=== PATIENT | female | born 1940 | race Two or more races ===

== ENCOUNTER 2018-10-05 14:47 | Inpatient (IN) | payer MEDICAID, MEDICARE ==
[~2018-10-05] VITALS: Ht 157.5 cm; Wt 86.2 kg
[~2018-10-05 14:47] MED LIST: AMLO5TAB7 PO; ATEN50TA PO; CLOP75TA15 PO; FURO40TA5 PO; GLIM2TAB2 PO; ICOS1CAP PO; NATE120T6 PO; OXYB10TA PO; RIVA1PAT3 TP; ROSU10TA PO
--- NOTE | 2018-10-05 15:00 | NUR ---
PT BIB FAMILY C/O DIALYSIS PORT MALFUNCTION LAST DIALYSIS WAS 09/27/18. ON ROOM AIR, 02 SAT 97%, BREATHING EVENLY AND UNLABORED. KEPT COMFORTABLE, WILL CONTINUE TO MONITOR ACCORDINGLY.
--- NOTE | 2018-10-05 16:00 | NUR ---
RECEIVED A VERBAL ORDER FROM DR. KAUR REGARDING MIDLINE INSERTION AND ORDERED. FAMILY AT BEDSIDE AND AMENABLE. ORDER CARRIED OUT AND NOTED.
[2018-10-05 16:14] LABS: BASOPHILS % (AUTO) 0.7 % (0.0-2.0); EOSINOPHILS % (AUTO) 3.5 % (0.0-6.0); HEMATOCRIT 32 % (33-45); HEMOGLOBIN 10.2 g/dL (11.5-14.8); LYMPHOCYTES # (AUTO) 1.5 /CMM (0.8-4.8); LYMPHOCYTES % (AUTO) 22.6 % (20.0-44.0); MEAN CORPUSCULAR HGB CONC 32 g/dl (31.0-36.0); MEAN CORPUSCULAR VOLUME 92 fL (82-100); MONOCYTES # (AUTO) 0.6 /CMM (0.1-1.30); MONOCYTES % (AUTO) 9.2 % (2.0-12.0); NEUTROPHILS # (AUTO) 4.2 /CMM (1.8-8.9); PLATELET COUNT (AUTO) 364 /CMM (150-450); RED BLOOD CELL COUNT(AUTO) 3.51 MIL/uL (4.0-5.2); WHITE BLOOD COUNT (AUTO) 6.5 K/uL (4.3-11.0)
[2018-10-05 16:25] LABS: CALCIUM, SERUM 9.7 mg/dL (8.5-10.1); CARBON DIOXIDE 25 mmol/L (21-32); CHLORIDE 104 mmol/L (98-107); CREATININE 3.4 mg/dL (0.6-1.3); GLUCOSE 127 mg/dL (74-106); POTASSIUM 4.4 mmol/L (3.5-5.1); SODIUM SERUM 138 mmol/L (136-145); UREA NITROGEN, BLOOD 44 mg/dL (7-18)
[2018-10-05 16:31] LABS: ALANINE AMINOTRANSFERASE 14 U/L (12-78); ALBUMIN 2.9 g/dL (3.4-5.0); ALKALINE PHOSPHATASE 72 U/L (46-116); ASPARTATE AMINOTRANSFERASE 10 U/L (15-37); BILIRUBIN,DIRECT 0.1 mg/dL (0.0-0.2); BILIRUBIN,TOTAL 0.2 mg/dL (0.2-1.0); LIPASE 254 U/L (73-393); TOTAL PROTEIN, SERUM 6.7 g/dL (6.4-8.2)
--- NOTE | 2018-10-05 16:33 | NUR ---
CALLED THE OFFICE OF DR MURILLO AND A PAGE WAS SENT OUT TO HIM
--- NOTE | 2018-10-05 18:19 | NUR ---
PT IS ASSIGNED TO MED SURG RM#: 309-2, DX: DIALYSIS ACCESS MALFUNCTION, AND ACCEPTING: CHARIS HORTON NP.
--- NOTE | 2018-10-05 18:27 | NUR ---
CALLED REPORT TO Rebeka CORRAL AND SPOKE TO VINEET BALES AND REPORT GIVEN AND FOR KASSY.
--- NOTE | 2018-10-05 19:20 | NUR ---
endorsed to Jessica BALES for barrera.
--- NOTE | 2018-10-05 19:20 | NUR ---
Patient was endorsed by NII Wade, for HD port malfunction. Pt awaiting room transfer for admission. TENA Harding, will admit her, at BS at this time.
--- NOTE | 2018-10-05 19:30 | NUR ---
Pt transported to 309 via gurney accompanied by son.
--- NOTE | 2018-10-05 19:40 | NUR ---
SOLAR PHOTOVOLTAIC CREW LEAD ADMITTING NOTES RECEIVED PATIENT FROM ER VIA PALMA, ACCOMPANIED BY STAFF & SON CARLA TO ROOM 309-2. PATIENT IS A & O X 3 PERUVIAN SPEAKING WITH MINIMAL CHINESE SPEAKING. NO C/O PAIN, NO SOB VERBALIZED. NO ACUTE DISTRESS NOTED. ON BED REST. IN SEMI ROJAS POSITION. NOTED WITH RIGOBERTO MIDLINE, DRESSING INTACT, FLUSHING WELL. ON TELE MONITORING WITH A FIB 62. RCW HD CATH IN PLACE. BODY CHECK DONE, PHOTOS TAKEN, PLACED IN THE CHART. VS CHECKED & STABLE AT THIS TIME. ALL BELONGINGS ACCOUNTED FOR & DOCUMENTED BY STUDENT LIFE COORDINATOR. ALL ORDERS VERIFIED WITH MD, NOTED & CARRIED OUT. PT HAD SNACK AFTER ARRIVING TO THE UNIT, TOLERATED WELL. ALL NEEDS MET. BED IN LOW LOCKED POSITION. CALL LIGHT WITHIN REACH. WILL CONTINUE TO MONITOR CLOSELY.
[2018-10-05 20:00] VITALS: BP 149/84
[2018-10-05] MEDS ORDERED: ONDANSETRON HCL/PF 4 MG/2 ML VIAL IVP PRN (20:00)
[2018-10-05] MEDS ORDERED: TEMAZEPAM 15 MG CAPSULE PO PRN (20:00)
[2018-10-05] MEDS ORDERED: HOME MED MISCELLANEOUS XX SCH (20:00)
[2018-10-05] MEDS ORDERED: DEXTROSE 50%-WATER 50 ML DISP.SYRIN IV PRN (20:00)
[2018-10-05] MEDS ORDERED: INSULIN REGULAR, HUMAN 100 UNIT/ML 3 ML VIAL SQ PRN (20:00)
[2018-10-05] MEDS ORDERED: MAG HYDROX/AL HYDROX/SIMETH 30 ML UDC PO PRN (20:00)
[2018-10-05] MEDS ORDERED: MAGNESIUM HYDROXIDE 30 ML UDC PO PRN (20:00)
[2018-10-05] MEDS ORDERED: ACETAMINOPHEN 325 MG TABLET PO PRN (20:00)
--- NOTE | 2018-10-05 21:00 | NUR ---
CLOTH WIRE WEAVER NOTE PATIENT'S O2 SAT NOTED TO BE 94% WITH MILD SOB, PLACED ON O2 VIA NC @ 2LPM & WAS EFFECTIVE. WILL CONTINUE TO MONITOR CLOSELY.
[2018-10-05] MEDS: BLOOD SUGAR DIAGNOSTIC 1 EACH STRIP IN SCH (21:09)
[2018-10-05] MEDS: SIMVASTATIN 10 MG TABLET PO SCH (21:42)
--- NOTE | 2018-10-05 22:31 | NUR ---
QUINTON AGUIRRE PHONE NUMBER IS [phone].
[2018-10-06] VITALS (7 sets, daily range): BP systolic 91–180; BP diastolic 64–83
--- NOTE | 2018-10-06 00:06 | NUR ---
AIRPLANE RENTAL CLERK NOTE PATIENT'S BLOOD SUGAR NOTED TO BE 85MG/DL, GAVE ORANGE JUICE, RECHECKED BS AGAIN, NOTED TO BE 109MG/DL. WILL MONITOR CLOSELY.
[2018-10-06] MEDS ORDERED: hydrALAZINE HCL 25 MG TABLET PO PRN (03:00)
--- NOTE | 2018-10-06 03:34 | NUR ---
PRN HYDRALAZINE GIVEN PATIENT'S BP NOTED TO BE 174/95, 65/MIN, CHECKED MULTIPLE TIMES, BP REMAINED HIGH, DR GLOVER NOTIFIED WITH NEW ORDER. PRN HYDRALAZINE GIVEN. WILL REASSESS FOR EFFECTIVENESS OF THE MEDICINE.
--- NOTE | 2018-10-06 06:28 | NUR ---
DR. EMERY CALLED DR EMERY CALLED, STATED TO KEEP THE PT NPO FROM NOW & OBTAIN CONSENT FOR PERMA CATH PLACEMENT PROCEDURE. WILL ENDORSE TO AM RN TO CALL QUINTON AGUIRRE TO GET THE CONSENT. PT KEPT NPO FROM NOW ON UNTIL THE PROCEDURE IS DONE.
[2018-10-06] MEDS: BLOOD SUGAR DIAGNOSTIC 1 EACH STRIP IN SCH ×4 (06:38→21:28)
[2018-10-06 06:54] LABS: BASOPHILS % (AUTO) 0.4 % (0.0-2.0); HEMATOCRIT 32 % (33-45); HEMOGLOBIN 10.3 g/dL (11.5-14.8); LYMPHOCYTES # (AUTO) 1.6 /CMM (0.8-4.8); MEAN CORPUSCULAR HGB CONC 32 g/dl (31.0-36.0); MEAN CORPUSCULAR VOLUME 93 fL (82-100); MONOCYTES # (AUTO) 0.5 /CMM (0.1-1.30); NEUTROPHILS % (AUTO) 67.6 % (43.0-81.0); PLATELET COUNT (AUTO) 396 /CMM (150-450); RED BLOOD CELL COUNT(AUTO) 3.48 MIL/uL (4.0-5.2); WHITE BLOOD COUNT (AUTO) 7.3 K/uL (4.3-11.0)
--- NOTE | 2018-10-06 07:00 | NUR ---
DEVELOPMENTAL WRITING INSTRUCTOR CLOSING NOTES PATIENT SLEPT INTERMITTENTLY AT NIGHT. PATIENT IS A & O X 3 WALLISIAN SPEAKING WITH MINIMAL UPPER SORBIAN SPEAKING. NO C/O PAIN, NO SOB VERBALIZED. NO ACUTE DISTRESS NOTED. GETS OUT OF BED TO CHAIR WITH STND BY ASSIST. RIGOBERTO MIDLINE, DRESSING INTACT, FLUSHING WELL. ON TELE MONITORING WITH A FIB 64. RCW HD CATH IN PLACE. BODY CHECK DONE, PHOTOS TAKEN, PLACED IN THE CHART. ON O2 @ 2LPM VIA NC. NPO PER DR VITALE'S ORDER. ALL NEEDS MET. BED IN LOW LOCKED POSITION. CALL LIGHT WITHIN REACH. WILL ENDORSE TO AM RN FOR CONTINUITY OF CARE.
[2018-10-06 07:03] LABS: CHOLESTEROL 193 mg/dL (<200); HDL CHOLESTEROL 45 mg/dL (40-60); LDL 128 mg/dL (0-99); TRIGLYCERIDES 146 mg/dL (30-150)
[2018-10-06 07:04] LABS: CALCIUM, SERUM 9.9 mg/dL (8.5-10.1); CARBON DIOXIDE 24 mmol/L (21-32); CHLORIDE 107 mmol/L (98-107); CREATININE 3.4 mg/dL (0.6-1.3); GLUCOSE 80 mg/dL (74-106); MAGNESIUM 1.9 mg/dL (1.8-2.4); PHOSPHORUS 5.3 mg/dL (2.5-4.9); POTASSIUM 4.7 mmol/L (3.5-5.1); SODIUM SERUM 141 mmol/L (136-145); UREA NITROGEN, BLOOD 42 mg/dL (7-18)
--- NOTE | 2018-10-06 07:30 | NUR ---
NPO THIS AM FOR PERMACATH PLACEMENT SURGERY.HAD MANAGER SKILLED.FOR PT.INSTRUCTED TO CALL RN BEFORE GETTING OOB.
[2018-10-06] MEDS: FUROSEMIDE 40 MG TABLET PO SCH (09:00)
[2018-10-06] MEDS: ATENOLOL 50 MG TABLET PO SCH (09:00)
--- NOTE | 2018-10-06 10:15 | NUR ---
BGL CHECKED AND 62.ADM. 50% GLUCOSE IV.PT. SERA. WELL.
--- NOTE | 2018-10-06 11:30 | NUR ---
SON CALLED AND CAME IN TO SIGN PROCEDURAL CONSENT.MADE AWRE OF MOM'S LOW GLUCOSE.
--- NOTE | 2018-10-06 11:50 | NUR ---
TO OR VIA BED.STATUS REPORT TO RN IN ER.
[2018-10-06] MEDS: AMLODIPINE BESYLATE 5 MG TABLET PO SCH (12:12)
[2018-10-06] MEDS: RIVASTIGMINE TARTRATE 4.6 MG PATCH.TD24 TD SCH (12:20)
[2018-10-06] MEDS ORDERED: LIDOCAINE HCL/PF 1% 30 ML SDV ONE (13:08)
[2018-10-06] MEDS ORDERED: HEPARIN SODIUM, PORCINE 1,000 UNIT/ML VIAL ONE (13:08)
[2018-10-06] MEDS ORDERED: IOHEXOL 240MG/ML 0 ML IV ONE (13:10)
--- NOTE | 2018-10-06 14:00 | NUR ---
BACK IN RM. PERMACATH IN PLACE WITH NO BLEEDING.VS STABLE.SON AT BEDSIDE.PT. WITH NO COMPLAINTS OFFERED.
--- NOTE | 2018-10-06 16:00 | NUR ---
CALL TO [facility] REGARDING POSSIBLE DIALYSIS TODAY.STATES DIALYSIS TO BE AT 8 PM TONIGHT.
[2018-10-06] MEDS: PANTOPRAZOLE 40 MG TABLET.DR PO SCH (17:02)
[2018-10-06] MEDS: CLOPIDOGREL BISULFATE 75 MG TABLET PO SCH (17:02)
[2018-10-06] MEDS: OXYBUTYNIN CHLORIDE 5 MG TABLET PO SCH (17:02)
--- NOTE | 2018-10-06 18:00 | NUR ---
NO CHANGE IN STATUS.
[2018-10-06] MEDS: SIMVASTATIN 10 MG TABLET PO SCH (21:28)
[2018-10-07] VITALS: BP 153/66
[2018-10-07 04:00] VITALS: BP 138/78
[2018-10-07] MEDS: BLOOD SUGAR DIAGNOSTIC 1 EACH STRIP IN SCH ×4 (06:04→22:52)
--- NOTE | 2018-10-07 06:16 | NUR ---
HEALTH INSURANCE ADJUSTER NOTES AWAKE & RESPONSIVE. NOT IN ANY DISTRESS. NO SOB NOTED. DENIES ANY PAIN OR DISCOMFORT AT THIS TIME. ON TELE AFIB @ 60s WITH MIDLINE PATENT & INTACT. CALL LIGHT WITHIN REACH. BED IN LOWEST POSITION. SR UP X 3 WITH BED ALARM ON FOR SAFETY. WILL ENDORSE TO NEXT SHIFT.
[2018-10-07 06:28] LABS: BASOPHILS % (AUTO) 0.4 % (0.0-2.0); EOSINOPHILS % (AUTO) 1.6 % (0.0-6.0); HEMATOCRIT 31 % (33-45); LYMPHOCYTES # (AUTO) 1.3 /CMM (0.8-4.8); LYMPHOCYTES % (AUTO) 21.8 % (20.0-44.0); MEAN CORPUSCULAR HGB CONC 33 g/dl (31.0-36.0); MEAN CORPUSCULAR VOLUME 92 fL (82-100); MONOCYTES # (AUTO) 0.5 /CMM (0.1-1.30); MONOCYTES % (AUTO) 8.3 % (2.0-12.0); NEUTROPHILS # (AUTO) 4.1 /CMM (1.8-8.9); NEUTROPHILS % (AUTO) 67.9 % (43.0-81.0); PLATELET COUNT (AUTO) 330 /CMM (150-450); RED BLOOD CELL COUNT(AUTO) 3.32 MIL/uL (4.0-5.2)
[2018-10-07 06:39] LABS: CALCIUM, SERUM 9.1 mg/dL (8.5-10.1); CARBON DIOXIDE 25 mmol/L (21-32); CHLORIDE 105 mmol/L (98-107); CREATININE 2.5 mg/dL (0.6-1.3); GLUCOSE 85 mg/dL (74-106); POTASSIUM 4.1 mmol/L (3.5-5.1); SODIUM SERUM 140 mmol/L (136-145); UREA NITROGEN, BLOOD 25 mg/dL (7-18)
--- NOTE | 2018-10-07 07:00 | NUR ---
INGOT BUGGY OPERATOR OPENING NOTES PATIENT IS A & O X 3 CHINESE SPEAKING. NO C/O PAIN, NO SOB VERBALIZED. NO ACUTE DISTRESS NOTED. GETS OUT OF BED TO CHAIR WITH STANDBY ASSIST. RIGOBERTO MIDLINE, DRESSING INTACT, FLUSHING WELL. ON TELE MONITORING WITH A FIB 70. RCW HD CATH IN PLACE. ON O2 @ 2LPM VIA NC. BED IN LOW LOCKED POSITION. CALL LIGHT WITHIN REACH. WILL CONTINUE TO MONITOR
[2018-10-07 08:00] VITALS: BP 160/88
[2018-10-07] MEDS: FUROSEMIDE 40 MG TABLET PO SCH (08:37)
[2018-10-07] MEDS: OXYBUTYNIN CHLORIDE 5 MG TABLET PO SCH (08:37)
[2018-10-07] MEDS: PANTOPRAZOLE 40 MG TABLET.DR PO SCH (08:38)
[2018-10-07] MEDS: AMLODIPINE BESYLATE 5 MG TABLET PO SCH (08:38)
[2018-10-07] MEDS: CLOPIDOGREL BISULFATE 75 MG TABLET PO SCH (08:39)
[2018-10-07] MEDS: ATENOLOL 50 MG TABLET PO SCH (08:39)
[2018-10-07] MEDS: RIVASTIGMINE TARTRATE 4.6 MG PATCH.TD24 TD SCH (08:40)
[2018-10-07 16:00] VITALS: BP 147/68
--- NOTE | 2018-10-07 19:20 | NUR ---
PT IN BED. NO C/O PAIN, NO SOB VERBALIZED. NO ACUTE DISTRESS NOTED. GETS OUT OF BED TO CHAIR WITH STANDBY ASSIST. RIGOBERTO MIDLINE, DRESSING INTACT, FLUSHING WELL. ON TELE MONITORING WITH A FIB 70. RCW HD CATH IN PLACE. ON O2 @ 2LPM VIA NC. BED IN LOW LOCKED POSITION. CALL LIGHT WITHIN REACH.
[2018-10-07 20:00] VITALS: BP 155/51
[2018-10-07] MEDS ORDERED: ALBUMIN 25% 12.5 GM/50 ML BOTTLE IV ONE ×2 (20:30→20:35)
[2018-10-07] MEDS ORDERED: ALBUMIN 25% 25 GM in PREMIX 1 EA IV PRN (21:00)
[2018-10-07] MEDS: SIMVASTATIN 10 MG TABLET PO SCH (22:52)
[2018-10-07 23:00] VITALS: BP 167/84
[2018-10-08 04:00] VITALS: BP 159/70
[2018-10-08] MEDS: BLOOD SUGAR DIAGNOSTIC 1 EACH STRIP IN SCH ×2 (06:05→12:26)
--- NOTE | 2018-10-08 06:15 | NUR ---
FINANCIAL SALES ASSOCIATE NOTES AWAKE & RESPONSIVE. NOT IN ANY DISTRESS. NO SOB NOTED. DENIES ANY PAIN OR DISCOMFORT AT THIS TIME. ON TELE AFIB @ 60s WITH MIDLINE PATENT & INTACT. CALL LIGHT WITHIN REACH. BED IN LOWEST POSITION. SR UP X 3 WITH BED ALARM ON FOR SAFETY. WILL ENDORSE TO NEXT SHIFT.
--- NOTE | 2018-10-08 07:55 | NUR ---
crew chief Opening Note Patient is currently awake, resting in bed. Alert and oriented x 3, primarily Tongan speaking. On vehicle monitor technician, a-fib at 65 bpm. Patient able to make needs known, no complaints, signs or symptoms of distress, shortness of breath or pain at this time. Respirations even and unlabored, saturating on room air. Left upper arm midline, intact and patent; right chest wall HD catheter in place. Safety and Fall precautions in place: bed in lowest and locked position, side rails up x2, call light and personal possessions within reach. Patient updated on safety measures and current plan of care, verbalized understanding. Will continue to monitor and intervene as needed.
[2018-10-08 08:00] VITALS: BP 182/107
[2018-10-08] MEDS: OXYBUTYNIN CHLORIDE 5 MG TABLET PO SCH (08:24)
[2018-10-08] MEDS: PANTOPRAZOLE 40 MG TABLET.DR PO SCH (08:24)
[2018-10-08] MEDS: RIVASTIGMINE TARTRATE 4.6 MG PATCH.TD24 TD SCH (08:25)
[2018-10-08] MEDS: AMLODIPINE BESYLATE 5 MG TABLET PO SCH ×2 (09:00→09:48)
[2018-10-08] MEDS: FUROSEMIDE 40 MG TABLET PO SCH (09:00)
[2018-10-08] MEDS: ATENOLOL 50 MG TABLET PO SCH ×2 (09:00→09:48)
[2018-10-08] MEDS: CLOPIDOGREL BISULFATE 75 MG TABLET PO SCH (09:48)
[2018-10-08] MEDS ORDERED: hydrALAZINE HCL 10 MG TABLET PO PRN (10:00)
--- NOTE | 2018-10-08 10:00 | NUR ---
HD nurse at bedside. Will continue to monitor.
--- NOTE | 2018-10-08 10:09 | NUR ---
WOUND CARE CONSULT SEEN PATIENT WITH NOTABLE HEALING SCRATCHES ON ABDOMEN, BACK, LEGS , CHEST, AND SACRAL BLANCHABLE REDNESS , RECOMMENDED TO USE BEDSIDE LOTION NEEDED KEEP TO OPEN TO AIR , WILL SEE PATIENT PRN Addendum: 10/08/18 at 1013 by JOHN SY RN Amended: Links added.
[2018-10-08 12:30] VITALS: BP 120/57
--- NOTE | 2018-10-08 12:30 | NUR ---
Hemodialysis completed. 1 L of fluid removed. Vital signs stable. Will continue to monitor.
--- NOTE | 2018-10-08 14:30 | NUR ---
MS consulting practice director Note Patient discharged to [facility] in stable condition via wheelchair, accompanied by GADIEL Bird and family. Patient leaving by private car with son Melyssa. Patient ambulates with steady gait. Patient is alert and oriented x 3, primarily Algerian speaking. Patient able to make needs known, no complaints, signs or symptoms of distress, shortness of breath or pain at this time. Respirations even and unlabored, saturating on room air. Left upper arm midline removed, catheter tip intact; no signs or symptoms of infiltration or phlebitis noted at the site. Patient with right chest wall HD catheter in place. Patient refused discharge photos of skin assessment to be taken, patient and family anxious to leave. ID band removed. Personal belongings accounted for and discharged with patient, verified via belongings form and placed in chart. Patient and family provided Exitcare and discharge instructions, verbalized understanding of all education and instructions, verified by signature on discharge form; copy placed in chart.
== END 2018-10-08 14:42 | disposition home or self-care (01) | DRG 466 ==
LOC: ER 14:51 → MED 18:49 → TELE 10-06 02:31 → MED 10-08 08:15
PROVIDERS: ADMIT Nurse Practitioner Acute Care; ATTEND Nurse Practitioner Acute Care
PROC: B547ZZA Ultrasonography of Left Subclavian Vein, Guidance (ICD-10-PCS; 2018-10-05)
PROC: 05H633Z Insertion of Infusion Device into Left Subclavian Vein, Percutaneous Approach (ICD-10-PCS; 2018-10-05)
PROC: 5A1D70Z Performance of Urinary Filtration, Intermittent, Less than 6 Hours Per Day (ICD-10-PCS; principal; 2018-10-06 13:00)
PROC: 0J2SXYZ Change Other Device in Head and Neck Subcutaneous Tissue and Fascia, External Approach (ICD-10-PCS; principal; 2018-10-06 13:00)
PROC: 5A1D70Z Performance of Urinary Filtration, Intermittent, Less than 6 Hours Per Day (ICD-10-PCS; 2018-10-08)
DX: T82.41XA Breakdown (mechanical) of vascular dialysis catheter, initial encounter (principal); N18.6 End stage renal disease; I13.2 Hypertensive heart and chronic kidney disease with heart failure and with stage 5 chronic kidney disease, or end stage renal disease; J18.9 Pneumonia, unspecified organism; E44.0 Moderate protein-calorie malnutrition; J90 Pleural effusion, not elsewhere classified; N17.9 Acute kidney failure, unspecified; E11.22 Type 2 diabetes mellitus with diabetic chronic kidney disease; E11.65 Type 2 diabetes mellitus with hyperglycemia; I48.2 Chronic atrial fibrillation; D63.8 Anemia in other chronic diseases classified elsewhere; Y92.009 Unspecified place in unspecified non-institutional (private) residence as the place of occurrence of the external cause; I50.9 Heart failure, unspecified; Z86.73 Personal history of transient ischemic attack (TIA), and cerebral infarction without residual deficits; Z91.15 Patient's noncompliance with renal dialysis; Z83.3 Family history of diabetes mellitus; Z99.2 Dependence on renal dialysis; Z79.84 Long term (current) use of oral hypoglycemic drugs; Z79.899 Other long term (current) drug therapy; J98.11 Atelectasis; E78.5 Hyperlipidemia, unspecified; Z82.49 Family history of ischemic heart disease and other diseases of the circulatory system; Z68.37 Body mass index [BMI] 37.0-37.9, adult; E66.9 Obesity, unspecified; Y71.2 Prosthetic and other implants, materials and accessory cardiovascular devices associated with adverse incidents
CPT/HCPCS: 36415; 36569; 71045-TC; 80048-TC; 80061-TC; 80076-TC; 82962-TC; 83690-TC; 83735-TC; 83880; 84100-TC; 84484-TC; 85025-TC; 85730-TC; 87081-TC; 90935-TC; 97110-TC; 97116-TC; 97530-TC; A4216; A4606; A6402; C1750; G0378; J0690; J1644; J1815; J2405; J2704; J3490; P9047; Q9966; Z7610

== ENCOUNTER 2018-10-15 14:46 | Inpatient (IN) | END 2018-10-16 15:25 | disposition left against medical advice (07) | DRG 314 | DX: T82.41XA Breakdown (mechanical) of vascular dialysis catheter, initial encounter (principal); N18.6 End stage renal disease; I13.2 Hypertensive heart and chronic kidney disease with heart failure and with stage 5 chronic kidney disease, or end stage renal disease; J98.11 Atelectasis; Y92.009 Unspecified place in unspecified non-institutional (private) residence as the place of occurrence of the external cause; E11.22 Type 2 diabetes mellitus with diabetic chronic kidney disease; I50.9 Heart failure, unspecified; Y71.2 Prosthetic and other implants, materials and accessory cardiovascular devices associated with adverse incidents; Z83.3 Family history of diabetes mellitus; Z86.73 Personal history of transient ischemic attack (TIA), and cerebral infarction without residual deficits; Z82.49 Family history of ischemic heart disease and other diseases of the circulatory system; Z99.2 Dependence on renal dialysis; E78.5 Hyperlipidemia, unspecified; D64.9 Anemia, unspecified; Z79.899 Other long term (current) drug therapy; Z79.84 Long term (current) use of oral hypoglycemic drugs; Z79.01 Long term (current) use of anticoagulants; G47.33 Obstructive sleep apnea (adult) (pediatric); M85.9 Disorder of bone density and structure, unspecified; I48.2 Chronic atrial fibrillation ==

== ENCOUNTER 2019-01-11 22:16 | Inpatient (IN) | payer MEDICARE, MEDICAID ==
[~2019-01-11] VITALS: Ht 152.4 cm; Wt 81.7 kg
[~2019-01-11 22:16] MED LIST changes: -AMLO5TAB7 PO; +AMLO5TAB9 PO; -ROSU10TA PO; +ROSU10TA2 PO
--- NOTE | 2019-01-11 22:25 | NUR ---
PT BIBRA FROM HOME C/O SOB X2 DAYS. +NONPRODUCTIVE COUGH. +BODY ACHE. PER RA, POSSIBLE INFECTED PORT RIGHT HIP. BILAT LOWER LEG EDEMA NOTED. PT AOX3. KAZAKH SPEAKING. NAD NOTED. RESP EVEN AND UNLABORED. O2 SAT 99% ON RA. PT ON MONITOR IN BED 8. WILL CONTINUE TO MONITOR.
--- NOTE | 2019-01-11 22:48 | NUR ---
BLOOD DRAWN AND GIVEN TO LAB
--- NOTE | 2019-01-11 22:50 | NUR ---
RADIOLOGY AT BEDSIDE FOR XRAY
[2019-01-11 22:53] LABS: BASOPHILS # (AUTO) 0.1 /CMM (0.0-0.2); BASOPHILS % (AUTO) 1.1 % (0.0-2.0); EOSINOPHILS % (AUTO) 2.4 % (0.0-6.0); HEMATOCRIT 31 % (33-45); HEMOGLOBIN 9.9 g/dL (11.5-14.8); LYMPHOCYTES # (AUTO) 1.1 /CMM (0.8-4.8); LYMPHOCYTES % (AUTO) 17.1 % (20.0-44.0); MEAN CORPUSCULAR HGB CONC 32 g/dl (31.0-36.0); MEAN CORPUSCULAR VOLUME 87 fL (82-100); MONOCYTES # (AUTO) 0.7 /CMM (0.1-1.30); MONOCYTES % (AUTO) 10.8 % (2.0-12.0); NEUTROPHILS # (AUTO) 4.5 /CMM (1.8-8.9); NEUTROPHILS % (AUTO) 68.6 % (43.0-81.0); PLATELET COUNT (AUTO) 283 /CMM (150-450); RED BLOOD CELL COUNT(AUTO) 3.53 MIL/uL (4.0-5.2); WHITE BLOOD COUNT (AUTO) 6.6 K/uL (4.3-11.0)
[2019-01-11 23:01] LABS: CALCIUM, SERUM 9.9 mg/dL (8.5-10.1); CARBON DIOXIDE 26 mmol/L (21-32); CHLORIDE 100 mmol/L (98-107); CREATININE 3.7 mg/dL (0.6-1.3); GLUCOSE 131 mg/dL (74-106); SODIUM SERUM 134 mmol/L (136-145); UREA NITROGEN, BLOOD 59 mg/dL (7-18)
[2019-01-11 23:13] LABS: ALANINE AMINOTRANSFERASE 14 U/L (12-78); ALBUMIN 2.7 g/dL (3.4-5.0); ALKALINE PHOSPHATASE 84 U/L (46-116); ASPARTATE AMINOTRANSFERASE 13 U/L (15-37); B-TYPE NATRIURETIC PEPTIDE 8226 PG/ML (0-125); BILIRUBIN,DIRECT 0.1 mg/dL (0.0-0.2); BILIRUBIN,TOTAL 0.2 mg/dL (0.2-1.0); TOTAL PROTEIN, SERUM 7.2 g/dL (6.4-8.2)
[2019-01-11] MEDS ORDERED: PIPERACILLIN /TAZOBACTAM 2.25 G in IV D5W 50 ML IV ONE (23:30)
[2019-01-11] MEDS ORDERED: VANCOMYCIN 500 MG VIAL IV ONE (23:30)
--- NOTE | 2019-01-11 23:33 | NUR ---
SON AT BEDSIDE
[2019-01-11 23:37] LABS: APPEARANCE,URINE Clear (CLEAR); BILIRUBIN,URINE Negative (NEGATIVE); BLOOD, URINE Trace-lysed Ery/uL (NEGATIVE); COLOR,URINE Yellow (YELLOW); KETONES,URINE Negative (NEGATIVE); LEUKOCYTE ESTERASE ,URINE Negative (NEGATIVE); NITRITE, URINE Negative (NEGATIVE); PH,URINE 7.5 (5.0-8.0); PROTEIN,URINE >=300 mg/dl (NEGATIVE); UGLUCOSE 100 MG/DL mg/dL (NEGATIVE); UROBILINOGEN,URINE 0.2 EU/dL (0.2)
[2019-01-11] MEDS ORDERED: PIPERACILLIN /TAZOBACTAM 3.375 G VIAL IV ONE (23:40)
[2019-01-11] MEDS ORDERED: VANCOMYCIN 500 MG VIAL ONE (23:40)
--- NOTE | 2019-01-12 00:02 | NUR ---
Patient is resting comfortably in bed with eyes closed. Easily aroused. VSS. SON AT BEDSIDE.
[2019-01-12 00:10] LABS: BACTERIA,URINE Rare /HPF (None Seen); SQUAMOUS EPITHELIAL CELL,UR Rare /HPF (None Seen)
--- NOTE | 2019-01-12 00:16 | NUR ---
CALLED HOUSE SUP FOR TELE BED
--- NOTE | 2019-01-12 00:19 | NUR ---
CALLED WATER SAFETY INSTRUCTOR CAMILLE GONG
[2019-01-12] MEDS ORDERED: VANCOMYCIN 1 GM VIAL ONE (00:25)
[2019-01-12] MEDS ORDERED: VANCOMYCIN 1 GM in IV D5W 250 ML IV ONE (00:30)
--- NOTE | 2019-01-12 01:19 | NUR ---
REPORT GIVEN TO NII ROCHE FOR KASSY
[2019-01-12 01:35] VITALS: BP 151/67
--- NOTE | 2019-01-12 01:35 | NUR ---
TELE/RN NOTES RECEIVED PT. FROM ER VIA PALMA. PT. IS AWAKE, ALERT AND ORIENTED X1-2. SALVADOREAN SPEAKING. PT. IS BREATHING EVEN AND UNLABORED ON 2LPM O2 VIA NC. NO SOB, RESPIRATORY DISTRESS OR COMPLAINTS OF PAIN NOTED AT THIS TIME. ORIENTED PT. TO ROOM. PLACED EXTERNAL HAND PATCHER ON PT. CURRENT RHYTHM = AFIB WITH PVCS HR 86. PT. WITH RIGHT AC 18 GAUGE PERIPHERAL IV PRESENT, PATENT AND INTACT ADMINISTERING TO PT. VANCOMYCIN 1G IV FROM ER. PT. WITH RIGHT UPPER THIGH HD CATH PRESENT AND INTACT. PT. SON PRESENT AT BEDSIDE. BED LOCKED AND IN LOWEST POSITION, SIDE RAILS UP X3, BED ALARM ON, CALL LIGHT WITHIN REACH, WILL CONTINUE TO MONITOR.
[2019-01-12 04:00] VITALS: BP 155/59
[2019-01-12 06:39] LABS: BASOPHILS % (AUTO) 0.4 % (0.0-2.0); EOSINOPHILS % (AUTO) 2.6 % (0.0-6.0); HEMATOCRIT 32 % (33-45); HEMOGLOBIN 10.4 g/dL (11.5-14.8); LYMPHOCYTES # (AUTO) 0.8 /CMM (0.8-4.8); LYMPHOCYTES % (AUTO) 12.1 % (20.0-44.0); MEAN CORPUSCULAR HGB CONC 32 g/dl (31.0-36.0); MEAN CORPUSCULAR VOLUME 88 fL (82-100); MONOCYTES # (AUTO) 0.6 /CMM (0.1-1.30); MONOCYTES % (AUTO) 9.7 % (2.0-12.0); NEUTROPHILS # (AUTO) 4.7 /CMM (1.8-8.9); NEUTROPHILS % (AUTO) 75.2 % (43.0-81.0); PLATELET COUNT (AUTO) 279 /CMM (150-450); RED BLOOD CELL COUNT(AUTO) 3.62 MIL/uL (4.0-5.2); WHITE BLOOD COUNT (AUTO) 6.3 K/uL (4.3-11.0)
[2019-01-12 06:48] LABS: CALCIUM, SERUM 10.2 mg/dL (8.5-10.1); CARBON DIOXIDE 25 mmol/L (21-32); CHLORIDE 99 mmol/L (98-107); CREATININE 3.7 mg/dL (0.6-1.3); GLUCOSE 112 mg/dL (74-106); POTASSIUM 3.6 mmol/L (3.5-5.1); SODIUM SERUM 135 mmol/L (136-145); UREA NITROGEN, BLOOD 57 mg/dL (7-18)
--- NOTE | 2019-01-12 06:50 | NUR ---
TELE/RN NOTES PT. IS LYING IN BED RESTING. PT. IS BREATHING EVEN AND UNLABORED ON 2LPM O2 VIA NC. NO SOB, RESPIRATORY DISTRESS OR COMPLAINTS OF PAIN NOTED AT THIS TIME. PLACED EXTERNAL PRODUCTION CONTROL PEGBOARD CLERK ON PT. CURRENT RHYTHM = AFIB WITH PVCS HR 89. PT. WITH RIGHT AC 18 GAUGE IV SALINE LOCK PRESENT, PATENT AND INTACT. PT. WITH RIGHT UPPER THIGH HD CATH PRESENT AND INTACT. ALL PT. NEEDS MET. BED LOCKED AND IN LOWEST POSITION, SIDE RAILS UP X3, BED ALARM ON, CALL LIGHT WITHIN REACH, WILL ENDORSE TO DAYSWYFT NURSE FOR CONTINUITY OF CARE.
[2019-01-12 08:00] VITALS: BP 135/79
--- NOTE | 2019-01-12 08:00 | NUR ---
RN notes Received patient in the bed on o2-2l NC, patient coughing, anxious, forgetful. Patient has no acute respiratory distress, v/s stable, patient has a HD catheter in right upper thigh, redness, needs attended and anticipated, assist turn and reposition q2 hr. call light within to reach. will continued monitoring.
[2019-01-12] MEDS ORDERED: FEE PK DOSING 1 MIN EA MC ONE (08:19)
[2019-01-12] MEDS ORDERED: VANCOMYCIN 500 MG in IV D5W 100 ML IV PRN (08:30)
[2019-01-12] MEDS ORDERED: Medication Not On Formulary EA (Rosuvastatin Calcium (Crestor) 10 MG) PO SCH (09:00)
[2019-01-12] MEDS: GLIMEPIRIDE 1 MG TABLET PO SCH ×2 (09:00→17:12)
[2019-01-12] MEDS: NATEGLINIDE 60 MG TABLET PO SCH ×3 (09:00→17:11)
--- NOTE | 2019-01-12 10:00 | NUR ---
rn notes patient getting hemodialysis at this time, held scheduled medication.
--- NOTE | 2019-01-12 12:20 | NUR ---
RN notes Finished hemodialysis at this time, output was 1.5 l, v/s stable bp 135.55, p-556, patient stable, scheduled medication administered, BS-99 mg/dl, assist patient turn and reposition q 2 hr. patient eating lunch at this time. call light within to reach, safety precaution maintained all the time.
--- NOTE | 2019-01-12 12:26 | NUR ---
RN NOTES Spoke to son, Melyssa, in regards to medication clarifications. Vascepa unavailable per Pharmacy. Son will bring and provide Vascepa. Per son, Patient receives Exelon 4.6mg. Pharmacy notified.
[2019-01-12] MEDS ORDERED: INSULIN REGULAR, HUMAN 100 UNIT/ML 3 ML VIAL SQ PRN (12:30)
[2019-01-12] MEDS ORDERED: DEXTROSE 50%-WATER 50 ML DISP.SYRIN IV PRN (12:30)
[2019-01-12] MEDS ORDERED: *INSULIN REGULAR(HUMULIN R)HUM 100 UNIT/ML VIAL SQ PRN (12:30)
[2019-01-12] MEDS: CLOPIDOGREL BISULFATE 75 MG TABLET PO SCH (12:40)
[2019-01-12] MEDS: FUROSEMIDE 40 MG TABLET PO SCH (12:40)
[2019-01-12] MEDS: OXYBUTYNIN CHLORIDE 5 MG TABLET PO SCH (12:40)
[2019-01-12] MEDS: ATENOLOL 50 MG TABLET PO SCH (12:43)
[2019-01-12] MEDS: AMLODIPINE BESYLATE 5 MG TABLET PO SCH (12:43)
[2019-01-12 13:07] LABS: BASOPHILS % (AUTO) 0.6 % (0.0-2.0); EOSINOPHILS % (AUTO) 2.9 % (0.0-6.0); HEMATOCRIT 31 % (33-45); HEMOGLOBIN 10.2 g/dL (11.5-14.8); LYMPHOCYTES # (AUTO) 0.7 /CMM (0.8-4.8); LYMPHOCYTES % (AUTO) 11.7 % (20.0-44.0); MEAN CORPUSCULAR HGB CONC 33 g/dl (31.0-36.0); MEAN CORPUSCULAR VOLUME 88 fL (82-100); MONOCYTES # (AUTO) 0.5 /CMM (0.1-1.30); MONOCYTES % (AUTO) 7.6 % (2.0-12.0); NEUTROPHILS # (AUTO) 4.9 /CMM (1.8-8.9); NEUTROPHILS % (AUTO) 77.2 % (43.0-81.0); PLATELET COUNT (AUTO) 275 /CMM (150-450); RED BLOOD CELL COUNT(AUTO) 3.51 MIL/uL (4.0-5.2); WHITE BLOOD COUNT (AUTO) 6.3 K/uL (4.3-11.0)
[2019-01-12] MEDS: RIVASTIGMINE TARTRATE 4.6 MG PATCH.TD24 TD SCH (13:11)
--- NOTE | 2019-01-12 13:30 | NUR ---
RN Notes patient with the PT walking around, v/s stable continued monitoring.
[2019-01-12] MEDS: Icosapent Ethyl (Vascepa) 1 GM PO SCH (15:23)
[2019-01-12 15:59] VITALS: BP 132/66
[2019-01-12 16:00] VITALS: BP 132/66
[2019-01-12] MEDS: BLOOD SUGAR DIAGNOSTIC 1 EACH STRIP VI SCH ×2 (17:11→21:39)
--- NOTE | 2019-01-12 17:30 | NUR ---
rn notes called dr Morales and get order Benadryl 25 mg po prn for itching, and Tylenol 650 mg po prn for pain, order taken and carried out.
[2019-01-12] MEDS ORDERED: Z GUARD REMEDY 2 OZ OINT TP PRN (18:30)
[2019-01-12] MEDS ORDERED: ACETAMINOPHEN 325 MG TABLET PO PRN (18:30)
[2019-01-12] MEDS ORDERED: diphenhydrAMINE HCL 25 MG CAPSULE ONE (18:51)
--- NOTE | 2019-01-12 18:51 | NUR ---
rn notes administered Benadryl 25 mg po prn for itching, per patient request. continued monitoring.
[2019-01-12] MEDS: diphenhydrAMINE HCL 25 MG CAPSULE PO PRN (18:52)
--- NOTE | 2019-01-12 18:59 | NUR ---
RN NOTES PATIENT STABLE REFUSED PAIN, BS-129 MG/DL, NO COVERAGE GIVEN, V/S STABLE, SCHEDULED MEDICATION ADMINISTERED, PATIENT SITTING IN THE CHAIR, INFUSING VANCOMYCIN 100 ML/HR IN RIGHT AC AREA INTACT. PATIENT INCONTINENT, ON 02-2L NC, NO ACUTE RESPIRATORY DISTRESS. CALL LIGHT WITHIN TO REACH. ENDORSED ONCOMING NURSE FOR PLAN OF CARE.
--- NOTE | 2019-01-12 19:30 | NUR ---
RN NOTES RECEIVED PT. AWAKE ON BED A/O2-3, SINGAPOREAN SPEAKING, NO PAIN NOTED, NO SOB, CALL LIGHT WITHIN REACH, SIDERAILSUPX2, CONTINUE TO MONITOR
[2019-01-12 20:00] VITALS: BP 118/82
[2019-01-12] MEDS: ATORVASTATIN 10 MG TABLET PO SCH (21:38)
--- NOTE | 2019-01-12 22:00 | NUR ---
RN NOTES BLOOD SUGAR- 63 , TUNA SANDWICH GIVEN
--- NOTE | 2019-01-13 06:39 | NUR ---
RN NOTES BLOOD SUGAR-63, SNACK GIVEN, DENIES PAIN, NO SOB, MORNING CARE RENDERED, CALL LIGHT WITHIN REACH, SIDERAILSUPX2, PT. NEEDS ATTENDED
[2019-01-13] MEDS: BLOOD SUGAR DIAGNOSTIC 1 EACH STRIP VI SCH ×4 (06:51→21:09)
[2019-01-13 08:00] VITALS: BP 120/70
--- NOTE | 2019-01-13 08:00 | NUR ---
MS RN NOTES PATIENT IN BED RESTING NO SOB OR ACUTE DISTRESS NOTED. PATIENT ALERT, ORIENTED X2 DENIES ANY PAIN OR DISCOMFORT. PERIPHERAL IV INTACT PATENT PATENT. BED IN LOW LOCKED POSITION. CALL LIGHT WITHIN REACH. WILL CONTINUE TO MONITOR.
--- NOTE | 2019-01-13 08:47 | NUR ---
WOUND CARE CONSULT: PT PRESENTS WITH SOME RED RASH AREAS AND SKIN STAINING TO ABDOMINAL/GROIN FOLDS AND PERINEUM, BUTTOCKS WELL SOME REDNESS AROUND RT THIGH DIALYSIS CATH SITE. DEFER TO MD FOR DIALYSIS CATH SITE. RECOMMENDATIONS MADE FOR REDNESS/RASH AREAS. DISCUSSED WITH NURSING STAFF. PT DEMONSTRATES ABILITY TO ASSIST WITH TURNING AND REPOSITIONING IN BED. WILL SEE PRN. CURRENT JENNIFER SCORE IS 17. Addendum: 01/13/19 at 0849 by COLEMAN QUINN WNDNU Amended: Links added.
[2019-01-13] MEDS: OXYBUTYNIN CHLORIDE 5 MG TABLET PO SCH (09:31)
[2019-01-13] MEDS: CLOPIDOGREL BISULFATE 75 MG TABLET PO SCH (09:31)
[2019-01-13] MEDS: GLIMEPIRIDE 1 MG TABLET PO SCH ×2 (09:31→17:23)
[2019-01-13] MEDS: FUROSEMIDE 40 MG TABLET PO SCH (09:32)
[2019-01-13] MEDS: AMLODIPINE BESYLATE 5 MG TABLET PO SCH (09:32)
[2019-01-13] MEDS: NATEGLINIDE 60 MG TABLET PO SCH ×3 (09:32→17:23)
[2019-01-13] MEDS: ATENOLOL 50 MG TABLET PO SCH (09:32)
[2019-01-13] MEDS: Icosapent Ethyl (Vascepa) 1 GM PO SCH (09:37)
[2019-01-13] MEDS: CLOTRIMAZOLE 1% 15 GM TUBE TP SCH ×2 (11:10→17:28)
[2019-01-13] MEDS: RIVASTIGMINE TARTRATE 4.6 MG PATCH.TD24 TD SCH (13:21)
--- NOTE | 2019-01-13 19:28 | NUR ---
MS RN NOTES PATIENT IN BED RESTING NO SOB OR ACUTE DISTRESS NOTED. PATIENT ALERT, ORIENTED X2. DENIES ANY PAIN OR DISCOMFORT. PATIENT FINISHED HD WITH 2 LITERS OUTPUT, TOLERATED WELL. PERIPHERAL IV INTACT PAPNET. ALL DUE MEDICATIONS ADMINISTERED, ALL NEEDS MET. ENDORSED CARE TO PM SHIFT.
--- NOTE | 2019-01-13 19:30 | NUR ---
RN NOTES RECEIVED PT. AWAKE ON BED, A/OX2-3. ETHIOPIAN SPEAKING, SITTER AT BEDSIDE, DENIES PAIN, NO SOB, CALL LIGHT WITHIN REACH, SIDERAILSUPX2, CONTINUE TO MONITOR
[2019-01-13 20:00] VITALS: BP 140/67
[2019-01-13] MEDS: ATORVASTATIN 10 MG TABLET PO SCH (21:08)
--- NOTE | 2019-01-14 06:42 | NUR ---
RN NOTES AWAKE, NOT IN DISTRESS, NO PAIN NOTED, NO SOB, MORNING CARE RENDERED, CALL LIGHT WITHIN REACH, SIDERAILSUPX2, PT. NEEDS ATTENDED
--- NOTE | 2019-01-14 06:42 | NUR ---
RN NOTES BLOOD SUGAR-66- SNACK GIVEN
--- NOTE | 2019-01-14 07:00 | NUR ---
RECEIVED PT. AWAKE IN BED, A/OX2. SITTER AT BEDSIDE, DENIES PAIN, NO SOB, CALL LIGHT WITHIN REACH, SIDERAILSUPX2, WILL CONTINUE TO MONITOR.
[2019-01-14] MEDS: BLOOD SUGAR DIAGNOSTIC 1 EACH STRIP VI SCH ×4 (07:53→23:01)
[2019-01-14 08:56] LABS: CALCIUM, SERUM 9.8 mg/dL (8.5-10.1); CARBON DIOXIDE 22 mmol/L (21-32); CHLORIDE 100 mmol/L (98-107); CREATININE 3.7 mg/dL (0.6-1.3); GLUCOSE 98 mg/dL (74-106); POTASSIUM 4.5 mmol/L (3.5-5.1); SODIUM SERUM 133 mmol/L (136-145); UREA NITROGEN, BLOOD 51 mg/dL (7-18)
[2019-01-14] MEDS: ATENOLOL 50 MG TABLET PO SCH (09:00)
[2019-01-14] MEDS: OXYBUTYNIN CHLORIDE 5 MG TABLET PO SCH (09:19)
[2019-01-14] MEDS: GLIMEPIRIDE 1 MG TABLET PO SCH ×2 (09:19→17:26)
[2019-01-14] MEDS: FUROSEMIDE 40 MG TABLET PO SCH (09:19)
[2019-01-14] MEDS: CLOPIDOGREL BISULFATE 75 MG TABLET PO SCH (09:19)
[2019-01-14] MEDS: Icosapent Ethyl (Vascepa) 1 GM PO SCH (09:19)
[2019-01-14] MEDS: CLOTRIMAZOLE 1% 15 GM TUBE TP SCH ×2 (09:22→17:26)
[2019-01-14] MEDS: NATEGLINIDE 60 MG TABLET PO SCH ×3 (09:22→17:26)
[2019-01-14 10:14] VITALS: BP 115/73
[2019-01-14] MEDS: diphenhydrAMINE HCL 25 MG CAPSULE PO PRN ×2 (11:38→20:26)
[2019-01-14] MEDS: RIVASTIGMINE TARTRATE 4.6 MG PATCH.TD24 TD SCH (13:50)
[2019-01-14] MEDS ORDERED: VANCOMYCIN 1 GM in IV D5W 250 ML IV ONE (15:00)
--- NOTE | 2019-01-14 17:41 | NUR ---
patient refused accu-check. Benefits explained, patient trinidad refusing
--- NOTE | 2019-01-14 19:05 | NUR ---
new IV assess to left wrist g 22, previous removed due to infiltration
--- NOTE | 2019-01-14 19:09 | NUR ---
AWAKE, NOT IN DISTRESS, NO PAIN NOTED, NO SOB,SITTER AT BEDSIDE. CALL LIGHT WITHIN REACH, SIDERAILSUPX2, PT. NEEDS ATTENDED.
--- NOTE | 2019-01-14 19:30 | NUR ---
MS/RN NOTES RECEIVED PT. LYING IN BED. PT. IS AWAKE, ALERT AND ORIENTED X2. BREATHING EVEN AND UNLABORED ON 2LPM O2 VIA NC. NO SOB, RESPIRATORY DISTRESS OR COMPLAINTS OF PAIN NOTED AT THIS TIME. PT. WITH RIGHT AC 18 GAUGE IV SALINE LOCK PRESENT, PATENT AND INTACT. PT. WITH RIGHT UPPER THIGH HD CATHETER PRESENT AND INTACT. PER DAYSHIFT NURSE PT. RECEIVED DIALYSIS TODAY 2 L TAKEN OUT. PT. WITH 1:1 SITTER PRESENT AT BEDSIDE. BED LOCKED AND IN LOWEST POSITION, SIDE RAILS UP X3, BED ALARM ON, CALL LIGHT WITHIN REACH, WILL CONTINUE TO MONITOR.
[2019-01-14 20:00] VITALS: BP 121/59
[2019-01-14] MEDS: ATORVASTATIN 10 MG TABLET PO SCH (22:42)
[2019-01-15] MEDS: BLOOD SUGAR DIAGNOSTIC 1 EACH STRIP VI SCH (06:42)
--- NOTE | 2019-01-15 06:46 | NUR ---
MS/RN NOTES PT. IS SITTING UP IN CHAIR, AWAKE, ALERT AND ORIENTED X2. BREATHING EVEN AND UNLABORED ON ROOM AIR. NO SOB, RESPIRATORY DISTRESS OR COMPLAINTS OF PAIN NOTED AT THIS TIME. PT. WITH RIGHT AC 18 GAUGE IV SALINE LOCK PRESENT, PATENT AND INTACT. PT. WITH RIGHT UPPER THIGH HD CATHETER PRESENT AND INTACT. ALL PT. NEEDS. MET. NO S/S OF HYPO/HYPERGLYCEMIA NOTED AT THIS TIME AND THROUGHOUT SHIFT. SAFETY AND ASPIRATION PRECAUTIONS IMPLEMENTED AND IN PLACE. PT. WITH 1:1 SITTER PRESENT AT BEDSIDE. BED LOCKED AND IN LOWEST POSITION, SIDE RAILS UP X3, BED ALARM ON, CALL LIGHT WITHIN REACH, WILL ENDORSE TO DAYSHIFT NURSE FOR CONTINUITY OF CARE.
--- NOTE | 2019-01-15 07:33 | NUR ---
M/S RN OPENING NOTES RECEIVED PATIENT ON CHAIR SITTING UPRIGHT, A/O X2 WITH JAPANESE SPEAKING ONLY. RESPIRATION EVEN AND UNLABORED WITH NO ACUTE RESPIRATORY DISTRESS. ABD SOFT AND NON DISTENDED WITH ACTIVE BOWEL SOUNDS. DENIES PAIN AND DISCOMFORT AT THIS TIME. SKIN WARM TO TOUCH. SITTER PRESENT ON BEDSIDE. IV LINE ON RIGHT AC #18 AND RIGHT THIGH HC CATH. ALL CONCERNS ADDRESSED. PLACED CALL LIGHT WITHIN REACH TO ENSURE SAFETY. WILL CONTINUE TO EVALUATE CARE.
[2019-01-15] MEDS: Icosapent Ethyl (Vascepa) 1 GM PO SCH (08:26)
[2019-01-15 08:27] VITALS: BP 130/62
[2019-01-15] MEDS: diphenhydrAMINE HCL 25 MG CAPSULE PO PRN (08:27)
[2019-01-15] MEDS: CLOPIDOGREL BISULFATE 75 MG TABLET PO SCH (08:27)
[2019-01-15] MEDS: OXYBUTYNIN CHLORIDE 5 MG TABLET PO SCH (08:27)
[2019-01-15] MEDS: FUROSEMIDE 40 MG TABLET PO SCH (08:27)
[2019-01-15] MEDS: ATENOLOL 50 MG TABLET PO SCH (08:27)
[2019-01-15] MEDS: NATEGLINIDE 60 MG TABLET PO SCH (08:27)
[2019-01-15] MEDS: GLIMEPIRIDE 1 MG TABLET PO SCH (08:28)
[2019-01-15 09:24] LABS: CALCIUM, SERUM 10.1 mg/dL (8.5-10.1); CARBON DIOXIDE 23 mmol/L (21-32); CHLORIDE 101 mmol/L (98-107); CREATININE 3.6 mg/dL (0.6-1.3); GLUCOSE 211 mg/dL (74-106); POTASSIUM 3.9 mmol/L (3.5-5.1); SODIUM SERUM 136 mmol/L (136-145); UREA NITROGEN, BLOOD 45 mg/dL (7-18)
[2019-01-15] MEDS: CLOTRIMAZOLE 1% 15 GM TUBE TP SCH (10:37)
--- NOTE | 2019-01-15 11:55 | NUR ---
M/S BANK PRESIDENT NOTE PATIENT DISCHARGED IN STABLE CONDITION ACCOMPANIED BY SON IN A PRIVATE CAR WHEELED OUTSIDE BY HEALTH CARE STAFF. PATIENT A/O X 2 AND ABLE TO MAKE NEEDS KNOWN, TAJIK SPEAKING ONLY. RESPIRATION EVEN AND NON LABORED WITH NO ACUTE RESPIRATORY DISTRESS. ABDOMEN SOFT AND NON DISTENDED WITH ACTIVE BOWEL SOUNDS. DENIES PAIN AND DISCOMFORT UPON DISCHARGE. SKIN WARM TO TOUCH, IV TAKEN OFF WITH NO S/SX OF INFECTION, SON REFUSED TO TAKE PICTURES FOR BODY CHECKED PER DISCHARGE PROTOCOL. EXIT CARE PROVIDED WITH PATIENT AND SON;TO FF UP WITH DIALYSIS CENTER ON THURSDAY SCHEDULED. PATIENT AND FAMILY CONCERNS ADDRESSED; LEFT IN STABLE AND SAFE CONDITION.
== END 2019-01-15 12:00 | disposition home or self-care (01) | DRG 314 ==
LOC: ER 22:26 → TELE 01-12 00:56 → MED 01-12 10:08
PROVIDERS: ADMIT Internal Medicine Nephrology; ATTEND Internal Medicine Nephrology
PROC: 5A1D70Z Performance of Urinary Filtration, Intermittent, Less than 6 Hours Per Day (ICD-10-PCS; principal; 2019-01-12)
PROC: 5A1D70Z Performance of Urinary Filtration, Intermittent, Less than 6 Hours Per Day (ICD-10-PCS; 2019-01-13)
PROC: 5A1D70Z Performance of Urinary Filtration, Intermittent, Less than 6 Hours Per Day (ICD-10-PCS; 2019-01-14)
DX: T82.7XXA Infection and inflammatory reaction due to other cardiac and vascular devices, implants and grafts, initial encounter (principal); N18.6 End stage renal disease; I50.33 Acute on chronic diastolic (congestive) heart failure; L03.115 Cellulitis of right lower limb; L03.116 Cellulitis of left lower limb; I13.2 Hypertensive heart and chronic kidney disease with heart failure and with stage 5 chronic kidney disease, or end stage renal disease; L03.90 Cellulitis, unspecified; E11.22 Type 2 diabetes mellitus with diabetic chronic kidney disease; Z99.2 Dependence on renal dialysis; Y84.9 Medical procedure, unspecified as the cause of abnormal reaction of the patient, or of later complication, without mention of misadventure at the time of the procedure; Y92.009 Unspecified place in unspecified non-institutional (private) residence as the place of occurrence of the external cause; D63.8 Anemia in other chronic diseases classified elsewhere; F03.90 Unspecified dementia, unspecified severity, without behavioral disturbance, psychotic disturbance, mood disturbance, and anxiety; I48.91 Unspecified atrial fibrillation; E78.5 Hyperlipidemia, unspecified; Z79.02 Long term (current) use of antithrombotics/antiplatelets; Z79.899 Other long term (current) drug therapy; Z82.49 Family history of ischemic heart disease and other diseases of the circulatory system; Z83.3 Family history of diabetes mellitus; Z86.73 Personal history of transient ischemic attack (TIA), and cerebral infarction without residual deficits
CPT/HCPCS: 36415; 71045-TC; 80048-TC; 80076-TC; 80202-TC; 81000-TC; 82550-TC; 82962-TC; 83605-TC; 83880; 84484-TC; 85025-TC; 85730-TC; 87040-TC; 87081-TC; 87086-TC; 90935-TC; 94799-TC; 97116-TC; 97530-TC; G0378; J1815; J2543; J3370; J7040; J7060; Q0163

== ENCOUNTER 2019-05-17 20:40 | Inpatient (IN) | payer MEDICARE, MEDICAID ==
[~2019-05-17] VITALS: Ht 157.5 cm; Wt 76.2 kg
[~2019-05-17 20:40] MED LIST changes: -OXYB10TA PO; +OXYB10TA2 PO
[2019-05-17] MEDS ORDERED: ACETAMINOPHEN ES 500 MG TABLET ONE (21:18)
[2019-05-17] MEDS ORDERED: ACETAMINOPHEN ES 500 MG TABLET PO ONE (21:30)
[2019-05-17] MEDS ORDERED: CEFEPIME 1 GM in IV D5W 50 ML IV ONE (21:30)
[2019-05-17] MEDS ORDERED: CEFEPIME 1 GM VIAL ONE (21:32)
[2019-05-17 21:36] LABS: BASOPHILS % (AUTO) 0.2 % (0.0-2.0); EOSINOPHILS % (AUTO) 0.1 % (0.0-6.0); HEMATOCRIT 34 % (33-45); LYMPHOCYTES # (AUTO) 0.2 /CMM (0.8-4.8); LYMPHOCYTES % (AUTO) 1.7 % (20.0-44.0); MEAN CORPUSCULAR HGB CONC 32 g/dl (31.0-36.0); MEAN CORPUSCULAR VOLUME 92 fL (82-100); MONOCYTES # (AUTO) 0.7 /CMM (0.1-1.30); MONOCYTES % (AUTO) 5.4 % (2.0-12.0); NEUTROPHILS # (AUTO) 12.5 /CMM (1.8-8.9); NEUTROPHILS % (AUTO) 92.6 % (43.0-81.0); PLATELET COUNT (AUTO) 234 /CMM (150-450); WHITE BLOOD COUNT (AUTO) 13.5 K/uL (4.3-11.0)
[2019-05-17 21:43] LABS: CALCIUM, SERUM 10.5 mg/dL (8.5-10.1); CARBON DIOXIDE 25 mmol/L (21-32); CHLORIDE 97 mmol/L (98-107); CREATININE 4.7 mg/dL (0.6-1.3); GLUCOSE 123 mg/dL (74-106); POTASSIUM 4.5 mmol/L (3.5-5.1); SODIUM SERUM 136 mmol/L (136-145); UREA NITROGEN, BLOOD 49 mg/dL (7-18)
[2019-05-17 21:55] LABS: ALANINE AMINOTRANSFERASE 16 U/L (12-78); ALBUMIN 3.1 g/dL (3.4-5.0); ALKALINE PHOSPHATASE 78 U/L (46-116); ASPARTATE AMINOTRANSFERASE 18 U/L (15-37); B-TYPE NATRIURETIC PEPTIDE 14251 PG/ML (0-125); BILIRUBIN,DIRECT 0.2 mg/dL (0.0-0.2); BILIRUBIN,TOTAL 0.5 mg/dL (0.2-1.0); TOTAL PROTEIN, SERUM 8.1 g/dL (6.4-8.2)
--- NOTE | 2019-05-17 22:00 | NUR ---
Pt BIBRA FROM HOME, FAMILY C/O FEVER & FLU LIKE SYMPTOMS. PER REPORT Pt WAS AT DIALYSIS YESTERDAY BUT ONLY HALF WAS DONE. ORAL TEMP OF 101.4F. Pt HAS BASELINE DEMENTIA. SIERRA LEONEAN SPEAKING. Pt BEING SEEN BY MD AT BEDSIDE. SAFETY MEASURES IN PLACE. WILL CONTINUE TO MONITOR.
[2019-05-17] MEDS ORDERED: VANCOMYCIN 1 GM in IV D5W 250 ML IV ONE (22:30)
--- NOTE | 2019-05-17 22:35 | NUR ---
IV ACCESS KENNY #22G
[2019-05-17] MEDS ORDERED: VANCOMYCIN 1 GM VIAL ONE (22:52)
--- NOTE | 2019-05-17 23:12 | NUR ---
TELE BED 307-2
[2019-05-17] MEDS ORDERED: MORPHINE SULFATE INJ 2 MG/ML DISP.SYRIN IV PRN (23:30)
[2019-05-17] MEDS ORDERED: MAGNESIUM HYDROXIDE 30 ML UDC PO PRN (23:30)
[2019-05-17] MEDS ORDERED: MAG HYDROX/AL HYDROX/SIMETH 30 ML UDC PO PRN (23:30)
[2019-05-17] MEDS ORDERED: ONDANSETRON HCL/PF 4 MG/2 ML VIAL IVP PRN (23:30)
[2019-05-18] VITALS (7 sets, daily range): BP systolic 109–162; BP diastolic 49–79
[2019-05-18] MEDS ORDERED: HOME MED MISCELLANEOUS XX SCH
--- NOTE | 2019-05-18 00:12 | NUR ---
CURRENT ORAL TEMP 98.7F
--- NOTE | 2019-05-18 00:12 | NUR ---
ALL ORDERED MEDS GIVEN
--- NOTE | 2019-05-18 00:13 | NUR ---
REPORT GIVEN TO SALVADOR BALES.
--- NOTE | 2019-05-18 00:25 | NUR ---
REPEAT TROPONIN:0.655
--- NOTE | 2019-05-18 00:29 | NUR ---
SECRET SERVICE AGENTMACROECONOMICS PROFESSOR NOTES Received patient from ER via rney accompanied by 2 ER staff. Admitted to Tele 307-1 due to Sepsis, unclear origin. Transferred patient to bed comfortably. Admission routine done. Patient's belongings inventory completed by the assigned JOINER APPRENTICE. Initial skin assessment done, photos taken and documented. Admission orders noted and carried out. Kept on bed comfortably, clean and dry. Call light within easy reach. On RA, no SOB/respiratory distress noted. Afebrile. On tele monitor with controlled A-Fib noted. Will continue to monitor accordingly.
[2019-05-18] MEDS ORDERED: METO-357 PO (01:11)
[2019-05-18] MEDS ORDERED: APIX2.5T PO (01:11)
[2019-05-18] MEDS ORDERED: SUVO15TA PO (01:11)
[2019-05-18] MEDS ORDERED: FURO40TA5 PO (01:11)
[2019-05-18] MEDS ORDERED: ATOR20TA PO (01:11)
[2019-05-18] MEDS ORDERED: DIPH25TA25 PO (01:11)
[2019-05-18] MEDS ORDERED: EXELON (01:11)
[2019-05-18] MEDS: INSULIN REGULAR, HUMAN 100 UNIT/ML 3 ML VIAL SQ PRN (06:23)
[2019-05-18] MEDS: BLOOD SUGAR DIAGNOSTIC 1 EACH STRIP IN SCH ×4 (06:30→22:04)
[2019-05-18 06:50] LABS: BASOPHILS # (AUTO) 0.1 /CMM (0.0-0.2); BASOPHILS % (AUTO) 0.5 % (0.0-2.0); EOSINOPHILS % (AUTO) 0.4 % (0.0-6.0); HEMATOCRIT 31 % (33-45); HEMOGLOBIN 10.4 g/dL (11.5-14.8); LYMPHOCYTES # (AUTO) 0.4 /CMM (0.8-4.8); LYMPHOCYTES % (AUTO) 2.7 % (20.0-44.0); MEAN CORPUSCULAR HGB CONC 34 g/dl (31.0-36.0); MEAN CORPUSCULAR VOLUME 95 fL (82-100); MONOCYTES # (AUTO) 0.7 /CMM (0.1-1.30); MONOCYTES % (AUTO) 4.6 % (2.0-12.0); NEUTROPHILS # (AUTO) 14.5 /CMM (1.8-8.9); NEUTROPHILS % (AUTO) 91.8 % (43.0-81.0); PLATELET COUNT (AUTO) 214 /CMM (150-450); RED BLOOD CELL COUNT(AUTO) 3.23 MIL/uL (4.0-5.2); WHITE BLOOD COUNT (AUTO) 15.7 K/uL (4.3-11.0)
--- NOTE | 2019-05-18 06:52 | NUR ---
INTERIOR DESIGN ASSISTANT CLOSING NOTES Patient asleep at this time, on tele monitor with controlled A-Fib noted. No new unusualities noted within the shift, afebrile the whole shift. No s/sx of discomfort noted at this time. On RA, no SOB/respiratory distress noted. On fall precautions, call light within easy reach. Endorsed to the next shift.
[2019-05-18 07:01] LABS: CALCIUM, SERUM 10.1 mg/dL (8.5-10.1); CARBON DIOXIDE 25 mmol/L (21-32); CHLORIDE 98 mmol/L (98-107); CREATININE 5.1 mg/dL (0.6-1.3); GLUCOSE 150 mg/dL (74-106); MAGNESIUM 1.9 mg/dL (1.8-2.4); PHOSPHORUS 7.2 mg/dL (2.5-4.9); POTASSIUM 4.5 mmol/L (3.5-5.1); SODIUM SERUM 135 mmol/L (136-145); UREA NITROGEN, BLOOD 51 mg/dL (7-18)
[2019-05-18] MEDS: NATEGLINIDE 60 MG TABLET PO SCH ×3 (07:30→17:17)
--- NOTE | 2019-05-18 07:34 | NUR ---
RN OPENING NOTES PT RESTING IN BED. PT PRIMARILY BELARUSIAN SPEAKER. NO APPARENT S/S OF PAIN, DISTRESS OR SOB AT THIS TIME. PT TELE MONITORED CONTROLLED AFIB RATE 59-60. PT HAS RIGHT HAND #22 IV INTACT AND PATENT. PT HAS RIGHT FEMORAL PERMACATH. PT ANURIC. SAFETY PRECAUTIONS IN PLACE, BED IN LOWEST LOCKED POSITION, X2 SIDE RAILS UP AND CALL LIGHT WITHIN REACH. WILL CONTINUE TO MONITOR.
--- NOTE | 2019-05-18 07:43 | NUR ---
RN NOTES TROPONIN DECREASED TO 0.468
[2019-05-18 07:59] LABS: CHOLESTEROL 95 mg/dL (<200); HDL CHOLESTEROL 40 mg/dL (40-60); LDL 45 mg/dL (0-99); TRIGLYCERIDES 72 mg/dL (30-150)
[2019-05-18] MEDS: OXYBUTYNIN CHLORIDE ER 5 MG TAB PO SCH (08:19)
[2019-05-18] MEDS: CLOPIDOGREL BISULFATE 75 MG TABLET PO SCH (08:19)
[2019-05-18] MEDS: RIVASTIGMINE TARTRATE 4.6 MG PATCH.TD24 TD SCH (08:21)
[2019-05-18] MEDS: FUROSEMIDE 40 MG TABLET PO SCH (09:00)
[2019-05-18] MEDS: AMLODIPINE BESYLATE 5 MG TABLET PO SCH (09:00)
[2019-05-18] MEDS: ATENOLOL 50 MG TABLET PO SCH (09:00)
--- NOTE | 2019-05-18 09:18 | NUR ---
RN NOTES EXELON PATCH ON RIGHT SHOULDER.
--- NOTE | 2019-05-18 09:58 | NUR ---
RN NOTES HELD BLOOD PRESSURE MEDICATIONS. PT WILL RECEIVE DIALYSIS TODAY.
--- NOTE | 2019-05-18 10:05 | NUR ---
WOUND CARE CONSULT: PT PRESENTS WITH MULTIPLE SKIN ISSUES INCLUDING STAGE 2 ULCER TO SACRUM, RASH TO BREASTFOLDS, ABDOMINAL AND GROIN FOLDS, AND SCRATCH JUAREZ ON ABDOMEN, ALL PRESENT ON ADMISSION. RECOMMENDATIONS MADE FOR WOUND CARE AND SKIN PROTECTION. DISCUSSED WITH NURSING STAFF. LOW AIRLOSS BED TO BE PLACED (ISOFLEX). WILL SEE PRN. BUNDY IN AGREEMENT WITH PLAN OF CARE. Addendum: 05/18/19 at 1007 by COLEMAN QUINN WNDNU Amended: Links added.
[2019-05-18] MEDS: Z GUARD REMEDY 2 OZ OINT TP SCH (11:22)
[2019-05-18] MEDS ORDERED: FEE PK DOSING 1 MIN EA MC ONE (14:38)
[2019-05-18] MEDS: CLOTRIMAZOLE 1% 15 GM TUBE TP SCH (16:46)
--- NOTE | 2019-05-18 17:07 | NUR ---
RN NOTES PT FINISHED HEMODIALYSIS. 500ML OUT. VITAL SIGNS STABLE. WILL CONTINUE TO MONITOR.
--- NOTE | 2019-05-18 18:15 | NUR ---
RN CLOSING NOTES PT RESTING IN BED. PT PRIMARILY HEBREW SPEAKER. NO APPARENT S/S OF PAIN, DISTRESS OR SOB DURING SHIFT. NO FEVERS ON SHIFT. PT HAS RIGHT HAND #22 IV INTACT AND PATENT. PT HAS RIGHT FEMORAL PERMACATH. PT HAD DIALYSIS TODAY OUTPUT 500. SAFETY PRECAUTIONS IN PLACE, BED IN LOWEST LOCKED POSITION, X2 SIDE RAILS UP AND CALL LIGHT WITHIN REACH. WILL ENDORSE TO ADJUNCT WRITING INSTRUCTOR NURSE FOR CONTINUITY OF CARE.
--- NOTE | 2019-05-18 19:15 | NUR ---
MS RN NOTES RECEIVED ON BED A/O X1-2,SPEAK GUATEMALAN,GRAND DAUGHTER AT BEDSIDE.SALINE LOCK RIGHT HAND INTACT AND PATENT.WITH RIGHT FEMORAL PERMA CATH FOR HD TREATMENT.SKIN WARM TO TOUCH.ORAL TEMP 99.3.WILL CONTINUE TO MONITOR STATUS.CALL LIGHT IN REACH,NEEDS ANTICIPATED.
[2019-05-18] MEDS: ACETAMINOPHEN 325 MG TABLET PO PRN (20:03)
--- NOTE | 2019-05-18 20:03 | NUR ---
MS RN NOTES C/O SLIGHT TEMP OF 99.2,TYLENOL 650MG PO GIVEN PER FAMILY REQUEST.
[2019-05-18] MEDS: CEFEPIME 1 GM in IV D5W 50 ML IV SCH (21:14)
--- NOTE | 2019-05-18 22:00 | NUR ---
MS RN NOTES ACCU-CHECK BLOOD SUGAR CHECK 105,NO INSULIN COVERAGE.
[2019-05-18] MEDS: ATORVASTATIN 10 MG TABLET PO SCH (22:06)
[2019-05-18] MEDS: VANCOMYCIN 500 MG in IV D5W 100 ML IV PRN (22:12)
--- NOTE | 2019-05-18 22:12 | NUR ---
MS RN NOTES VANCOMYCIN TROUGH 17 BEFORE HD TREATMENT.DOSE ADMINISTER THIS TIME.
[2019-05-19 06:32] LABS: CALCIUM, SERUM 10.3 mg/dL (8.5-10.1); CARBON DIOXIDE 27 mmol/L (21-32); CHLORIDE 102 mmol/L (98-107); CREATININE 3.8 mg/dL (0.6-1.3); GLUCOSE 89 mg/dL (74-106); MAGNESIUM 1.8 mg/dL (1.8-2.4); PHOSPHORUS 4.9 mg/dL (2.5-4.9); POTASSIUM 3.8 mmol/L (3.5-5.1); SODIUM SERUM 137 mmol/L (136-145); UREA NITROGEN, BLOOD 36 mg/dL (7-18)
--- NOTE | 2019-05-19 06:32 | NUR ---
MS RN NOTES SLEPT WELL AT NIGHT.IV ABX TOLERATED WELL.REFUSED MORNING BLOOD SUGAR.NO EPISODE OF SOB NOTED.BED ON LOWEST POSITION AND LOCKED.CALL LIGHT IN REACH,NEEDS ATTENDED.WILL ENDORSE TO DAY NURSE FOR KASSY.
[2019-05-19 06:41] LABS: BASOPHILS % (AUTO) 0.3 % (0.0-2.0); EOSINOPHILS % (AUTO) 0.2 % (0.0-6.0); HEMATOCRIT 29 % (33-45); HEMOGLOBIN 10.1 g/dL (11.5-14.8); LYMPHOCYTES # (AUTO) 0.4 /CMM (0.8-4.8); LYMPHOCYTES % (AUTO) 6.1 % (20.0-44.0); MEAN CORPUSCULAR HGB CONC 35 g/dl (31.0-36.0); MEAN CORPUSCULAR VOLUME 94 fL (82-100); MONOCYTES # (AUTO) 0.5 /CMM (0.1-1.30); NEUTROPHILS # (AUTO) 5.7 /CMM (1.8-8.9); NEUTROPHILS % (AUTO) 85.4 % (43.0-81.0); PLATELET COUNT (AUTO) 205 /CMM (150-450); RED BLOOD CELL COUNT(AUTO) 3.06 MIL/uL (4.0-5.2); WHITE BLOOD COUNT (AUTO) 6.7 K/uL (4.3-11.0)
[2019-05-19] MEDS: BLOOD SUGAR DIAGNOSTIC 1 EACH STRIP IN SCH ×4 (07:30→22:13)
--- NOTE | 2019-05-19 07:38 | NUR ---
RN OPENING NOTES PT RESTING IN BED. PT PRIMARILY KOREAN SPEAKER. NO APPARENT S/S OF PAIN, DISTRESS OR SOB AT THIS TIME. PT HAS RIGHT HAND #22 IV INTACT AND PATENT. PT HAS RIGHT FEMORAL PERMA CATH. SAFETY PRECAUTIONS IN PLACE, BED IN LOWEST LOCKED POSITION, X2 SIDE RAILS UP AND CALL LIGHT WITHIN REACH. WILL CONTINUE TO MONITOR.
[2019-05-19 08:00] VITALS: BP 141/65
[2019-05-19] MEDS: NATEGLINIDE 60 MG TABLET PO SCH ×3 (08:26→17:19)
[2019-05-19] MEDS: CLOPIDOGREL BISULFATE 75 MG TABLET PO SCH (08:26)
[2019-05-19] MEDS: OXYBUTYNIN CHLORIDE ER 5 MG TAB PO SCH (08:26)
[2019-05-19] MEDS: FUROSEMIDE 40 MG TABLET PO SCH (08:26)
[2019-05-19] MEDS: ATENOLOL 50 MG TABLET PO SCH (08:27)
[2019-05-19] MEDS: RIVASTIGMINE TARTRATE 4.6 MG PATCH.TD24 TD SCH (08:27)
[2019-05-19] MEDS: CLOTRIMAZOLE 1% 15 GM TUBE TP SCH ×2 (08:28→16:46)
[2019-05-19] MEDS: Z GUARD REMEDY 2 OZ OINT TP PRN (08:28)
[2019-05-19] MEDS: AMLODIPINE BESYLATE 5 MG TABLET PO SCH (08:35)
[2019-05-19] MEDS: Z GUARD REMEDY 2 OZ OINT TP SCH (09:04)
[2019-05-19 16:00] VITALS: BP 103/47
[2019-05-19] MEDS: LACTOBACILLUS RHAMNOSUS GG 1 EACH CAP.SPRINK PO SCH (16:47)
[2019-05-19] MEDS: DEXTROSE 50%-WATER 50 ML DISP.SYRIN IV PRN ×2 (17:16→22:08)
--- NOTE | 2019-05-19 18:37 | NUR ---
RN NOTES BLOOD SUGAR CHECKED @ 1650: 37 RECHECKED @1653: 43 2 BOXES OF ORANGE JUICE GIVEN 8OZ. RECHECKED @1711: 47 PATIENT THEN GIVEN D50 RECHECKED @ 1821: 83
--- NOTE | 2019-05-19 18:56 | NUR ---
RN CLOSING NOTES PT RESTING IN BED. PT PRIMARILY [place] SPEAKER. NO APPARENT S/S OF PAIN, DISTRESS OR SOB AT THIS TIME. PT HAS RIGHT HAND #22 IV INTACT AND PATENT. PT HAS RIGHT FEMORAL PERMA CATH. ALL PATIENT NEEDS MET DURING SHIFT. SAFETY PRECAUTIONS IN PLACE, BED IN LOWEST LOCKED POSITION, X2 SIDE RAILS UP AND CALL LIGHT WITHIN REACH. WILL ENDORSE TO BRUSHER WARP NURSE FOR CONTINUITY OF CARE.
--- NOTE | 2019-05-19 19:35 | NUR ---
MS RN NOTES RECEIVED ON BED A/O X1-2,MOANS,CLAIMED BACK PAIN ABOUT 5/10 ON PAIN SCALE.SALINE LOCK RIGHT HAND INTACT AND PATENT.WITH RIGHT FEMORAL PERMA CATH FOR HD ACCESS.ON GEL BED FOR WOUND/SKIN MANAGEMENT.CALL LIGHT IN REACH,NEEDS ANTICIPATED.
--- NOTE | 2019-05-19 19:49 | NUR ---
MS RN NOTES C/O BACK PAIN 5/10 ON PAIN SCALE,MEDICATED WITH NORCO 5/325MG,1TAB PO ORDERED FOR MODERATE PAIN
[2019-05-19 20:00] VITALS: BP 135/55
[2019-05-19 20:15] VITALS: BP 135/55
--- NOTE | 2019-05-19 20:30 | NUR ---
MS/RN ASSUMED CARE FOR CONTINUITY OF CARE. PATIENT AWAKE, ALERT, NO DISTRESS NOTED, CALL LIGHT IN REACH. FALL PRECAUTION, WILL MONITOR.
--- NOTE | 2019-05-19 20:30 | NUR ---
MS RN NOTES STILL MOANS,WANTS BACK RUB.REPOST GIVEN TO LEONARDO BALES FOR KASSY.
[2019-05-19] MEDS: HYDROCODONE/APAP 5/325MG 1 EACH TABLET PO PRN (20:47)
[2019-05-19] MEDS: CEFEPIME 1 GM in IV D5W 50 ML IV SCH (20:55)
[2019-05-19] MEDS: ATORVASTATIN 10 MG TABLET PO SCH (22:13)
--- NOTE | 2019-05-20 03:16 | NUR ---
MS/RN RECHECKED BLOOD SUGAR, 43, RECHECKED, 41, PATIENT IS ASYMPTOMATIC. IV LEAKING, ORANGE JUICE WITH SUGAR WAS GIVEN WAS IV IS BEING STARTED, ONCE STARTED, WILL GIVE D5 IV.
[2019-05-20] MEDS: DEXTROSE 50%-WATER 50 ML DISP.SYRIN IV PRN (03:27)
[2019-05-20 06:27] LABS: BASOPHILS % (AUTO) 0.1 % (0.0-2.0); EOSINOPHILS % (AUTO) 2.2 % (0.0-6.0); HEMATOCRIT 30 % (33-45); HEMOGLOBIN 10.2 g/dL (11.5-14.8); LYMPHOCYTES # (AUTO) 0.6 /CMM (0.8-4.8); LYMPHOCYTES % (AUTO) 8.3 % (20.0-44.0); MEAN CORPUSCULAR HGB CONC 34 g/dl (31.0-36.0); MEAN CORPUSCULAR VOLUME 91 fL (82-100); MONOCYTES # (AUTO) 0.6 /CMM (0.1-1.30); MONOCYTES % (AUTO) 9.4 % (2.0-12.0); NEUTROPHILS # (AUTO) 5.4 /CMM (1.8-8.9); PLATELET COUNT (AUTO) 206 /CMM (150-450); RED BLOOD CELL COUNT(AUTO) 3.29 MIL/uL (4.0-5.2); WHITE BLOOD COUNT (AUTO) 6.7 K/uL (4.3-11.0)
--- NOTE | 2019-05-20 06:30 | NUR ---
MS/RN PATIENT IS AWAKE, COMFORTABLE, NO DISTRESS NOTED, CALL LIGHT IN REACH. ALL NEEDS ATTENDED AT THIS TIME, WILL CONTINUE TO MONITOR.
[2019-05-20 06:57] LABS: CALCIUM, SERUM 9.8 mg/dL (8.5-10.1); CARBON DIOXIDE 24 mmol/L (21-32); CHLORIDE 98 mmol/L (98-107); CREATININE 4.2 mg/dL (0.6-1.3); GLUCOSE 112 mg/dL (74-106); MAGNESIUM 1.8 mg/dL (1.8-2.4); PHOSPHORUS 4.4 mg/dL (2.5-4.9); POTASSIUM 3.8 mmol/L (3.5-5.1); SODIUM SERUM 133 mmol/L (136-145); UREA NITROGEN, BLOOD 49 mg/dL (7-18)
[2019-05-20] MEDS: BLOOD SUGAR DIAGNOSTIC 1 EACH STRIP IN SCH ×4 (07:31→21:48)
[2019-05-20] MEDS: NATEGLINIDE 60 MG TABLET PO SCH ×3 (07:32→17:00)
[2019-05-20 08:00] VITALS: BP 170/73
[2019-05-20] MEDS: HYDROCODONE/APAP 5/325MG 1 EACH TABLET PO PRN ×2 (08:18→11:44)
[2019-05-20] MEDS: CLOTRIMAZOLE 1% 15 GM TUBE TP SCH ×2 (08:22→17:01)
[2019-05-20] MEDS: Z GUARD REMEDY 2 OZ OINT TP PRN (08:23)
--- NOTE | 2019-05-20 08:30 | NUR ---
M/S RN NOTES PATIENT AWAKE, LYING IN BED, ALERT AND ORIENTED X2, INDONESIAN SPEAKING. NO RESPIRATORY DISTRESS. PATIENT COMPLAINING OF BACK PAIN 04/27, NORCO GIVEN ORDERED, WILL REASSESS. PATIENT'S NEEDS ATTENDED. IV SL ON THE RFA #22G, INTACT AND PATENT, NO REDNESS AND NO INFILTRATION NOTED. BED ON LOWEST LOCKED POSITION, CALL LIGHT WITHIN REACH. WILL CONTINUE TO MONITOR.
[2019-05-20] MEDS: AMLODIPINE BESYLATE 5 MG TABLET PO SCH (09:00)
[2019-05-20] MEDS: LACTOBACILLUS RHAMNOSUS GG 1 EACH CAP.SPRINK PO SCH ×2 (09:00→17:00)
[2019-05-20] MEDS: ATENOLOL 50 MG TABLET PO SCH (09:00)
[2019-05-20] MEDS: FUROSEMIDE 40 MG TABLET PO SCH (09:00)
[2019-05-20] MEDS: Z GUARD REMEDY 2 OZ OINT TP SCH (09:16)
--- NOTE | 2019-05-20 09:19 | NUR ---
M/S RN NOTES PATIENT GETTING DIALYSIS AT THIS TIME, HELD MORNING MEDICATIONS. PATIENT IN STABLE CONDITION.
[2019-05-20] MEDS: CLOPIDOGREL BISULFATE 75 MG TABLET PO SCH (10:47)
[2019-05-20] MEDS: OXYBUTYNIN CHLORIDE ER 5 MG TAB PO SCH (10:47)
[2019-05-20] MEDS: RIVASTIGMINE TARTRATE 4.6 MG PATCH.TD24 TD SCH (10:47)
[2019-05-20 16:00] VITALS: BP 137/71
[2019-05-20] MEDS: VANCOMYCIN 500 MG in IV D5W 100 ML IV PRN (17:28)
--- NOTE | 2019-05-20 19:15 | NUR ---
RN medsurg opening notes Received Pt from morning nurse. Pt is alert and oriented X2. Pt speaks Cypriot, able to make needs known. Pt is sleeping in bed comfortably. Awaken easily. Respiration is normal. NO SOB. No nausea or vomiting. Pt denies any pain or discomfort at this time. IV sites at RFA # 22 is clean, intact, patent, flush without resistance and SL. Instructed to call. Safety precautions is maintained. Bed at low position, brakes locked, side rails X3 and call light is within reach. Will continue to monitor and assist all needs.
--- NOTE | 2019-05-20 19:20 | NUR ---
M/S RN NOTES PATIENT AWAKE IN BED, SON AT BEDSIDE, NO RESPIRATORY DISTRESS NOTED, NO C/O PAIN AT THIS TIME. PATIENT'S NEEDS ATTENDED. BED ON LOWEST LOCKED POSITION, CALL LIGHT WITHIN REACH. WILL ENDORSE TO ONCOMING NURSE.
[2019-05-20 20:00] VITALS: BP 133/51
--- NOTE | 2019-05-20 20:40 | NUR ---
RN medsurguillermo notes Pt is complaining of itchy in her back, and legs. Contacted and informed Barry Harding NP to get an order.
[2019-05-20] MEDS: CEFEPIME 1 GM in IV D5W 50 ML IV SCH (21:11)
--- NOTE | 2019-05-20 21:15 | NUR ---
RN medsurg notes Received order from Barry Harding NP for Benadryl 25 mg/10ml / PO for itching. Order carried out.
[2019-05-20] MEDS: ATORVASTATIN 10 MG TABLET PO SCH (21:25)
[2019-05-20] MEDS: diphenhydrAMINE HCL ELIX 25 MG/10 ML UDC PO PRN (21:35)
--- NOTE | 2019-05-20 21:35 | NUR ---
RN medsurg notes Administered Benadryl 25 mg/10ml/PO for itching per Pt request. Instructed to call. Call light is within reach. Will continue to monitor.
[2019-05-20] MEDS: INSULIN REGULAR, HUMAN 100 UNIT/ML 3 ML VIAL SQ PRN (21:53)
[2019-05-21] MEDS: BLOOD SUGAR DIAGNOSTIC 1 EACH STRIP IN SCH ×4 (06:30→22:38)
[2019-05-21 06:36] LABS: BASOPHILS % (AUTO) 0.4 % (0.0-2.0); HEMATOCRIT 32 % (33-45); HEMOGLOBIN 10.8 g/dL (11.5-14.8); LYMPHOCYTES # (AUTO) 0.6 /CMM (0.8-4.8); LYMPHOCYTES % (AUTO) 12.5 % (20.0-44.0); MEAN CORPUSCULAR HGB CONC 34 g/dl (31.0-36.0); MEAN CORPUSCULAR VOLUME 91 fL (82-100); MONOCYTES # (AUTO) 0.5 /CMM (0.1-1.30); MONOCYTES % (AUTO) 10.1 % (2.0-12.0); NEUTROPHILS # (AUTO) 3.8 /CMM (1.8-8.9); PLATELET COUNT (AUTO) 228 /CMM (150-450); RED BLOOD CELL COUNT(AUTO) 3.47 MIL/uL (4.0-5.2); WHITE BLOOD COUNT (AUTO) 5.1 K/uL (4.3-11.0)
--- NOTE | 2019-05-21 07:00 | NUR ---
RN medsurg closing notes Pt is resting in bed comfortably. No SOB. No nausea or vomiting. No S/S of distress noted. No C/O of pain at this time. IV sites at RFA is intact, patent and SL. Right Femoral HD cath is clean, intact and patent. Routine meds were given as ordered. All needs met and attended. Safety precautions is maintained. Bed at low position and call light is within reach. Will endorse to morning nurse for KASSY.
[2019-05-21 07:04] LABS: CALCIUM, SERUM 9.9 mg/dL (8.5-10.1); CARBON DIOXIDE 25 mmol/L (21-32); CHLORIDE 101 mmol/L (98-107); CREATININE 3.4 mg/dL (0.6-1.3); GLUCOSE 71 mg/dL (74-106); MAGNESIUM 1.9 mg/dL (1.8-2.4); POTASSIUM 3.8 mmol/L (3.5-5.1); SODIUM SERUM 136 mmol/L (136-145); UREA NITROGEN, BLOOD 37 mg/dL (7-18)
--- NOTE | 2019-05-21 07:21 | NUR ---
MS RN OPENING NOTES RECEIVED PT AWAKE IN BED IN NO ACUTE SIGNS OF DISTRESS. A/O X2. MALTESE SPEAKING, DENIES PAIN OR ANY DISCOMFORTS AT THIS TIME. ON ROOM AIR, BREATHING EVEN AND UNLABORED. IV SL ON RFA G#20 INTACT AND FLUSHING WELL. RIGHT FEMORAL HD CATH IN PLACE WITH DRESSING C/D/I. SAFETY PRECAUTIONS IN PLACE. BED IN LOW LOCKED POSITION WITH SR UP X2. CALL LIGHT WITHIN REACH. WILL CONTINUE TO MONITOR ACCORDINGLY.
[2019-05-21] MEDS: NATEGLINIDE 60 MG TABLET PO SCH ×3 (07:32→16:43)
[2019-05-21 08:00] VITALS: BP 166/72
[2019-05-21] MEDS: AMLODIPINE BESYLATE 5 MG TABLET PO SCH (08:06)
[2019-05-21] MEDS: OXYBUTYNIN CHLORIDE ER 5 MG TAB PO SCH (08:06)
[2019-05-21] MEDS: diphenhydrAMINE HCL ELIX 25 MG/10 ML UDC PO PRN ×2 (08:06→19:59)
[2019-05-21] MEDS: CLOTRIMAZOLE 1% 15 GM TUBE TP SCH ×2 (08:07→16:18)
[2019-05-21] MEDS: CLOPIDOGREL BISULFATE 75 MG TABLET PO SCH (08:07)
[2019-05-21] MEDS: LACTOBACILLUS RHAMNOSUS GG 1 EACH CAP.SPRINK PO SCH ×2 (08:07→16:19)
[2019-05-21] MEDS: FUROSEMIDE 40 MG TABLET PO SCH (08:07)
[2019-05-21] MEDS: ATENOLOL 50 MG TABLET PO SCH (08:07)
[2019-05-21] MEDS: Z GUARD REMEDY 2 OZ OINT TP SCH (08:08)
--- NOTE | 2019-05-21 08:09 | NUR ---
RN NOTES PT C/O GENERALIZED ITCHING, PRN BENADRYL 25MG/10ML PO ADMINISTERED AT 0806. WILL CONTINUE TO MONITOR.
[2019-05-21] MEDS: RIVASTIGMINE TARTRATE 4.6 MG PATCH.TD24 TD SCH (08:13)
[2019-05-21] MEDS: ACETAMINOPHEN 325 MG TABLET PO PRN (10:39)
--- NOTE | 2019-05-21 11:09 | NUR ---
RN NOTES PATIENT COMPLAINED OF ABDOMINAL DISCOMFORTS AND NAUSEA. SHE ASKED FOR TYLENOL. PRN TYLENOL 650MG PO AND ZOFRAN 4MG/2ML IVP ADMINISTERED. WILL CONTINUE TO MONITOR.
[2019-05-21] MEDS: INSULIN REGULAR, HUMAN 100 UNIT/ML 3 ML VIAL SQ PRN ×2 (11:27→22:38)
[2019-05-21 16:00] VITALS: BP 148/74
--- NOTE | 2019-05-21 17:24 | NUR ---
RN NOTES PT NOTED WITH BS OF 74MG/DL THIS AFTERNOON, NO S/S OF HYPOGLYCEMIA NOTED. ORANGE JUICE AND DINNER TRAY GIVEN. WILL CONTINUE TO MONITOR.
--- NOTE | 2019-05-21 18:22 | NUR ---
RN NOTES PT'S SON HARIGOBERTO IN ROOM AND BROUGHT VEGETABLE SOUP AND PT ATE IT WELL.
--- NOTE | 2019-05-21 18:39 | NUR ---
MS RN CLOSING NOTES PATIENT IN BED AWAKE AND RESTING AT MODERATE HIGH BACKREST POSITION. A/O X2-3. ZAMBIAN SPEAKING. ON ROOM AIR, TOLERATING WELL WITH NO SOB NOTED THROUGHOUT THE DAY. IV SL ON LFA G#22 INTACT AND FLUSHING WELL. RIGHT FEMORAL HD CATH IN PLACE WITH DRESSING C/D/I. PT ABLE TO MOVE SELF IN BED AND ASSISTED TO TURN AND REPOSITION FROM SIDE TO SIDE PRN. ALL NEEDS AND CARE ATTENDED WELL. SAFETY PRECAUTIONS KEPT IN PLACE. BED IN LOW LOCKED POSITION WITH SR UP X2. CALL LIGHT WITHIN REACH. WILL ENDORSE TO NIGHT SHIFTY NURSE FOR KASSY
--- NOTE | 2019-05-21 19:00 | NUR ---
RN MS OPENING NOTES RECEIVED PATIENT IN BED AWAKE ALERT AND ORIENTED X2-3, RESPIRATIONS EVEN AND UNLABORED WITH EQUAL RISE AND FALL OF CHEST, DENIES ANY PAIN OR DISCOMFORT AT THIS TIME, LEFT FA IV SITE #22 G INTACT AND PATENT , NO REDNESS, NO INFILTRATION PRESENT, RIGHT FEMORAL HD CATH INTACT, DRESSING REMAINS CLEAN DRY AND INTACT, ORIENTED TO STAFF AND CALL LIGHT AND KEPT WITHIN REACH, PATIENT REPOSITIONED,FLUIDS OFFERED, SAFETY PRECAUTIONS IN PLACE, LOW BED AND LOCKED , BED ALARM IN PLACE, ALL NEEDS ATTENDED WILL CONTINUE TO MONITOR AND ATTEND TO NEEDS.
--- NOTE | 2019-05-21 19:59 | NUR ---
RN MS NOTES PATIENT COMPLAINT OF ITCHINESS TO BACK, REQUESTING FOR ITCH MEDICATION BENADRYL OFFERED , PATIENT AGREED , PRN GIVEN ORDERED, APPLIED MOISTURIZER TO BACK , REPOSITIONED , WILL CONTINUE TO MONITOR FOR EFFECTIVENESS.
[2019-05-21 20:00] VITALS: BP 137/64
[2019-05-21] MEDS: ATORVASTATIN 10 MG TABLET PO SCH (22:40)
--- NOTE | 2019-05-22 06:30 | NUR ---
RN MS CLOSING NOTES PATIENT IN BED AWAKE ALERT AND ORIENTED X2-3, GREEK SPEAKING STAFF GAS TORCH BRAZIER USED THROUGHOUT SHIFT TO MEET NEEDS, RESPIRATIONS EVEN AND UNLABORED WITH EQUAL RISE AND FALL OF CHEST, DENIES ANY PAIN OR DISCOMFORT AT THIS TIME, LEFT FA IV SITE #22 G INTACT AND PATENT , NO REDNESS, NO INFILTRATION PRESENT, RIGHT FEMORAL HD CATH INTACT, DRESSING REMAINS CLEAN DRY AND INTACT, BED BATH GIVEN AND LINENS CHANGED, CALL LIGHT AND KEPT WITHIN REACH, PATIENT REPOSITIONED,FLUIDS OFFERED, SAFETY PRECAUTIONS IN PLACE, LOW BED AND LOCKED , BED ALARM IN PLACE, ALL NEEDS ATTENDED WILL CONTINUE TO MONITOR AND ATTEND TO NEEDS.
[2019-05-22] MEDS: INSULIN REGULAR, HUMAN 100 UNIT/ML 3 ML VIAL SQ PRN ×2 (06:52→22:19)
[2019-05-22] MEDS: BLOOD SUGAR DIAGNOSTIC 1 EACH STRIP IN SCH ×4 (06:52→21:46)
[2019-05-22 07:20] LABS: BASOPHILS % (AUTO) 0.5 % (0.0-2.0); EOSINOPHILS % (AUTO) 3.4 % (0.0-6.0); HEMATOCRIT 32 % (33-45); HEMOGLOBIN 10.5 g/dL (11.5-14.8); LYMPHOCYTES # (AUTO) 0.8 /CMM (0.8-4.8); LYMPHOCYTES % (AUTO) 12.2 % (20.0-44.0); MEAN CORPUSCULAR HGB CONC 33 g/dl (31.0-36.0); MEAN CORPUSCULAR VOLUME 93 fL (82-100); MONOCYTES # (AUTO) 0.5 /CMM (0.1-1.30); MONOCYTES % (AUTO) 8.3 % (2.0-12.0); NEUTROPHILS # (AUTO) 4.9 /CMM (1.8-8.9); NEUTROPHILS % (AUTO) 75.6 % (43.0-81.0); PLATELET COUNT (AUTO) 256 /CMM (150-450); RED BLOOD CELL COUNT(AUTO) 3.41 MIL/uL (4.0-5.2); WHITE BLOOD COUNT (AUTO) 6.5 K/uL (4.3-11.0)
[2019-05-22 07:27] LABS: CARBON DIOXIDE 23 mmol/L (21-32); CHLORIDE 102 mmol/L (98-107); CREATININE 4.3 mg/dL (0.6-1.3); GLUCOSE 108 mg/dL (74-106); POTASSIUM 4.2 mmol/L (3.5-5.1); SODIUM SERUM 136 mmol/L (136-145); UREA NITROGEN, BLOOD 46 mg/dL (7-18)
[2019-05-22 08:08] VITALS: BP 126/70
[2019-05-22] MEDS: AMLODIPINE BESYLATE 5 MG TABLET PO SCH (09:00)
[2019-05-22] MEDS: RIVASTIGMINE TARTRATE 4.6 MG PATCH.TD24 TD SCH (09:19)
[2019-05-22] MEDS: NATEGLINIDE 60 MG TABLET PO SCH ×3 (09:19→17:30)
[2019-05-22] MEDS: ATENOLOL 50 MG TABLET PO SCH (09:20)
[2019-05-22] MEDS: CLOPIDOGREL BISULFATE 75 MG TABLET PO SCH (09:20)
[2019-05-22] MEDS: LACTOBACILLUS RHAMNOSUS GG 1 EACH CAP.SPRINK PO SCH ×2 (09:20→17:30)
[2019-05-22] MEDS: OXYBUTYNIN CHLORIDE ER 5 MG TAB PO SCH (09:20)
[2019-05-22] MEDS: FUROSEMIDE 40 MG TABLET PO SCH (09:20)
[2019-05-22] MEDS: CLOTRIMAZOLE 1% 15 GM TUBE TP SCH ×2 (09:28→17:31)
[2019-05-22] MEDS: Z GUARD REMEDY 2 OZ OINT TP PRN (09:28)
[2019-05-22] MEDS: Z GUARD REMEDY 2 OZ OINT TP SCH (09:29)
--- NOTE | 2019-05-22 15:20 | NUR ---
HD not done today. Perma cath doesn't work. Gunner Gruber NP notified. Still waiting g for dr. Solis to remove catheter.
--- NOTE | 2019-05-22 18:52 | NUR ---
PATIENT IN BED, COMFORTABLY RESTING. RESPIRATIONS EVEN AND UNLABORED ON ROOM AIR. DENIES PAIN AT THIS TIME, LEFT FA IV SITE #22 G INTACT AND PATENT , NO REDNESS, NO INFILTRATION PRESENT, RIGHT FEMORAL HD CATH INTACT, DRESSING REMAINS CLEAN DRY AND INTACT, BED ALARM ACTIVATED, SAFETY PRECAUTIONS IN PALACE, CALL LIGHT WITHIN REACH. ALL NEEDS ATTENDED. PATIENT KEPT CLEAN AND DRY. WILL ENDORSE TO NEXT SHIFT FOR KASSY.
--- NOTE | 2019-05-22 19:00 | NUR ---
RN MS OPENING NOTES RECEIVED PATIENT IN BED AWAKE ALERT AND ORIENTED X2, WITH EPISODES OF FORGETFULNESS AND CONFUSION, HOWEVER ABLE TO MAKE NEEDS KNOWN, RESPIRATIONS EVEN AND UNLABORED WITH EQUAL RISE AND FALL OF CHEST, DENIES ANY PAIN OR DISCOMFORT, IV SITE TO LEFT FA #22 G INTACT AND PATENT , SL NO REDNESS, NO INFILTRATION PRESENT, RIGHT FEMORAL PERMACATH INTACT, DRESSING IS IN PLACE, ORIENTED TO STAFF AND CALL LIGHT AND KEPT WITHIN REACH, SAFETY PRECAUTIONS IN PLACE, LOW BED AND LOCKED, FLUIDS OFFERED , ALL NEEDS ATTENDED AT THIS TIME, WILL CONTINUE TO MONITOR AND ATTEND TO NEEDS.
[2019-05-22 20:00] VITALS: BP 165/66
[2019-05-22] MEDS: ATORVASTATIN 10 MG TABLET PO SCH (21:46)
[2019-05-22] MEDS: diphenhydrAMINE HCL ELIX 25 MG/10 ML UDC PO PRN (22:39)
--- NOTE | 2019-05-22 22:39 | NUR ---
RN MS NOTES PATIENT COMPLAINT OF ITCHINESS TO ABDOMEN AND BACK, OFFERED BENADRYL PATIENT AGREED TO TAKE , WILL CONTINUE TO MONITOR , PATIENT SKIN WAS CLEANSED. WILL CONTINUE TO MONITOR FOR EFFECTIVENESS.
[2019-05-23] MEDS: HYDROCODONE/APAP 5/325MG 1 EACH TABLET PO PRN (00:18)
--- NOTE | 2019-05-23 00:18 | NUR ---
RN MS NOTES PATIENT NOTED WITH MOANING AND FACIAL GRIMACING POINTING TO BACK C/O PAIN 5/10 BASE ON HARMON LYONS SCALE , OFFERED PAIN MEDICATION NORCO, PATIENT AGREED TO HAVE PAIN MEDICATION , PRN NORCO GIVEN VS WNL, WILL CONTINUE TO MONITOR FOR EFFECTIVENESS.
[2019-05-23 06:16] LABS: BASOPHILS % (AUTO) 0.6 % (0.0-2.0); HEMATOCRIT 32 % (33-45); HEMOGLOBIN 10.6 g/dL (11.5-14.8); LYMPHOCYTES % (AUTO) 14.4 % (20.0-44.0); MEAN CORPUSCULAR HGB CONC 33 g/dl (31.0-36.0); MEAN CORPUSCULAR VOLUME 94 fL (82-100); MONOCYTES # (AUTO) 0.7 /CMM (0.1-1.30); MONOCYTES % (AUTO) 9.4 % (2.0-12.0); NEUTROPHILS % (AUTO) 71.6 % (43.0-81.0); PLATELET COUNT (AUTO) 278 /CMM (150-450); RED BLOOD CELL COUNT(AUTO) 3.41 MIL/uL (4.0-5.2)
--- NOTE | 2019-05-23 06:19 | NUR ---
RN MS NOTES ACCUCHECK 65 , OFFERED AND GAVE JUICE, ASYMPTOMATIC. WILL CONTINUE TO MONITOR.
[2019-05-23 06:26] LABS: CALCIUM, SERUM 9.6 mg/dL (8.5-10.1); CARBON DIOXIDE 22 mmol/L (21-32); CHLORIDE 102 mmol/L (98-107); CREATININE 4.7 mg/dL (0.6-1.3); GLUCOSE 81 mg/dL (74-106); PHOSPHORUS 4.7 mg/dL (2.5-4.9); POTASSIUM 4.1 mmol/L (3.5-5.1); SODIUM SERUM 136 mmol/L (136-145); UREA NITROGEN, BLOOD 57 mg/dL (7-18)
--- NOTE | 2019-05-23 06:26 | NUR ---
RN MS CLOSING NOTES PATIENT IN BED AWAKE ALERT AND ORIENTED X2, WITH EPISODES OF FORGETFULNESS AND CONFUSION, HOWEVER ABLE TO MAKE NEEDS KNOWN, RESPIRATIONS EVEN AND UNLABORED WITH EQUAL RISE AND FALL OF CHEST, DENIES ANY PAIN OR DISCOMFORT, IV SITE TO LEFT FA #22 G INTACT AND PATENT , SL NO REDNESS, NO INFILTRATION PRESENT, RIGHT FEMORAL PERMACATH INTACT, DRESSING IS IN PLACE C/D/I, CALL LIGHT KEPT WITHIN REACH, SAFETY PRECAUTIONS IN PLACE, LOW BED AND LOCKED, BED ALARM IN PLACE, FLUIDS OFFERED, BED BATH GIVEN, REPOSITIONED, SACRAL SKIN APPEARS TO BE INTACT , RESOLVING, NORCO GIVEN WAS EFFECTIVE, PATIENT DENIES PAIN AND SLEPT WELL, REPOSITIONED HEELS OFFLOADED , ALL NEEDS ATTENDED AT THIS TIME, WILL CONTINUE TO MONITOR AND ATTEND TO NEEDS AND ENDORSE TO NEXT SHIFT.
[2019-05-23] MEDS: BLOOD SUGAR DIAGNOSTIC 1 EACH STRIP IN SCH ×4 (06:41→23:02)
[2019-05-23] MEDS: INSULIN REGULAR, HUMAN 100 UNIT/ML 3 ML VIAL SQ PRN (06:42)
[2019-05-23] MEDS: NATEGLINIDE 60 MG TABLET PO SCH ×3 (07:30→16:49)
--- NOTE | 2019-05-23 07:30 | NUR ---
MS RN OPENING NOTE RECEIVED PATIENT IN BED. A/O X2. ON ROOM AIR. RESPIRATIONS EVEN AND UNLABORED. DENIES SOB AT THIS TIME. DENIES PAIN AT THIS TIME. NO APPARENT DISTRESS AT THIS TIME. IV ACCESS LEFT FA GAUGE 22 PATENT AND SALINE LOCKED. RIGHT FEMORAL PERM CATH ALSO PRESENT. BED IS LOW AND LOCKED. CALL LIGHT WITHIN REACH. WILL CONTINUE TO MONITOR.
[2019-05-23 08:00] VITALS: BP 117/89
[2019-05-23] MEDS: ATENOLOL 50 MG TABLET PO SCH (09:00)
[2019-05-23] MEDS: AMLODIPINE BESYLATE 5 MG TABLET PO SCH (09:00)
--- NOTE | 2019-05-23 09:05 | NUR ---
MS BALES NOTE 0900 TEMPERATURE 100.9 GAVE TYLENOL Addendum: 05/23/19 at 0942 by LISA RUFFIN RN MS BALES NOTE PLEASE DISREGARD NOTE ABOVE. ENTERED IN WRONG PATIENTS CHART.
[2019-05-23] MEDS ORDERED: ALTEPLASE CATHFLO 2 MG/VIAL IV ONE (09:30)
[2019-05-23] MEDS: CLOPIDOGREL BISULFATE 75 MG TABLET PO SCH (09:48)
[2019-05-23] MEDS: FUROSEMIDE 40 MG TABLET PO SCH (09:48)
[2019-05-23] MEDS: LACTOBACILLUS RHAMNOSUS GG 1 EACH CAP.SPRINK PO SCH ×2 (09:48→16:49)
[2019-05-23] MEDS: OXYBUTYNIN CHLORIDE ER 5 MG TAB PO SCH (09:49)
[2019-05-23] MEDS: Z GUARD REMEDY 2 OZ OINT TP SCH (09:51)
[2019-05-23] MEDS: RIVASTIGMINE TARTRATE 4.6 MG PATCH.TD24 TD SCH (09:51)
[2019-05-23] MEDS: CLOTRIMAZOLE 1% 15 GM TUBE TP SCH ×2 (09:51→16:50)
[2019-05-23 16:00] VITALS: BP 150/56
[2019-05-23] MEDS ORDERED: NEPRO VAN 237 ML CAN PO PRN (16:00)
[2019-05-23 18:19] VITALS: BP 118/75
--- NOTE | 2019-05-23 18:33 | NUR ---
MS RN CLOSING NOTES PATIENT RESTIN GIN BED. A/O X 2. RESPIRATION ARE EVEN AND UNLABORED. ON OXYGEN AT 2L/MIN. DENIES PAIN AT THIS TIME. NO APPARENT DISTRESS NOTED. ALL NURSING NEEDS MET. IV ACCESS LEFT FA PATENT AND SALINE LOCKED. PATIENT IS IN SEMI FOWLERS WITH THE BED LOW AND LOCKED. CALL LIGHT WITH IN REACH. WILL ENDORSE TO LICENSED REACTOR OPERATOR FOR KASSY.
[2019-05-23 20:00] VITALS: BP 157/58
--- NOTE | 2019-05-23 20:08 | NUR ---
MS/RN ON INITIAL ROUND AT 1930 PATIENT WAS IN BED AWAKE, ALERT, ORIENTED, COMFORTABLE, NO C/O PAIN, NO DISTRESS NOTED, HD WAS IN PROGRESS, WILL MONITOR.
--- NOTE | 2019-05-23 20:39 | NUR ---
MS/RN RECEIVED VERBAL ORDER FROM INÉS MANDUJANO NP, TO DO BLOOD CULTURE DURING HD, ORDER CARRIED OUT.
--- NOTE | 2019-05-23 21:51 | NUR ---
MS/RN HD WAS FINISHED, 2.5L OUT, BLOOD CULTURE SPECIMEN WAS PICKED UP BY LAB, PATIENT A LITTLE RESTLESS AND WANTS TO GO HOME, TRANSLATED BY STAN MORRIS, CONTACTED THE SON, CARLA, , THE SON SPOKE TO THE PATIENT. PATIENT MORE CALM AFTER TALKING TO THE SON. WILL CONTINUE TO MONITOR.
[2019-05-23] MEDS: ATORVASTATIN 10 MG TABLET PO SCH (23:02)
[2019-05-23] MEDS: diphenhydrAMINE HCL ELIX 25 MG/10 ML UDC PO PRN (23:02)
--- NOTE | 2019-05-23 23:09 | NUR ---
MS/RN PATIENT IS ITCHING AND RESTLESS, BENADRYL PO WAS GIVEN ORDERED. WILL MONITOR.
[2019-05-23] MEDS: VANCOMYCIN 500 MG in IV D5W 100 ML IV PRN (23:12)
--- NOTE | 2019-05-24 06:47 | NUR ---
MS/RN PATIENT IS AWAKE, ALERT, ORIENTED, COMFORTABLE, NO DISTRESS NOTED, CALL LIGHT WITHIN REACH, ALL NEEDS ATTENDED AT THIS TIME, WILL CONTINUE TO MONITOR.
--- NOTE | 2019-05-24 06:48 | NUR ---
MS/RN ON AND OFF SLEEP NOTED THE WHOLE SHIFT.
--- NOTE | 2019-05-24 07:30 | NUR ---
MS/RN - Assessment Patient is awake, A/O x 2-3, Kenyan speaking, no complaints overnight, denies pain, no apparent distress, afebrile, stable on room air. Saline lock on the LFA is patent, intact, with no signs of infiltration. Labs reviewed with no critical results noted. Fall and aspiration precautions maintained. Will do wound treatment as ordered. Patient educated on plan of care. Will continue with current medical management.
[2019-05-24 07:36] LABS: CALCIUM, SERUM 9.6 mg/dL (8.5-10.1); CARBON DIOXIDE 26 mmol/L (21-32); CHLORIDE 105 mmol/L (98-107); CREATININE 3.3 mg/dL (0.6-1.3); GLUCOSE 89 mg/dL (74-106); MAGNESIUM 2.1 mg/dL (1.8-2.4); PHOSPHORUS 3.5 mg/dL (2.5-4.9); POTASSIUM 3.9 mmol/L (3.5-5.1); SODIUM SERUM 141 mmol/L (136-145); UREA NITROGEN, BLOOD 35 mg/dL (7-18)
[2019-05-24 07:46] LABS: BASOPHILS % (AUTO) 0.2 % (0.0-2.0); EOSINOPHILS % (AUTO) 2.9 % (0.0-6.0); HEMATOCRIT 32 % (33-45); HEMOGLOBIN 10.9 g/dL (11.5-14.8); LYMPHOCYTES % (AUTO) 12.7 % (20.0-44.0); MEAN CORPUSCULAR HGB CONC 34 g/dl (31.0-36.0); MEAN CORPUSCULAR VOLUME 91 fL (82-100); MONOCYTES # (AUTO) 0.7 /CMM (0.1-1.30); NEUTROPHILS # (AUTO) 6.2 /CMM (1.8-8.9); NEUTROPHILS % (AUTO) 76.2 % (43.0-81.0); PLATELET COUNT (AUTO) 340 /CMM (150-450); RED BLOOD CELL COUNT(AUTO) 3.56 MIL/uL (4.0-5.2); WHITE BLOOD COUNT (AUTO) 8.2 K/uL (4.3-11.0)
[2019-05-24] MEDS: NATEGLINIDE 60 MG TABLET PO SCH ×3 (07:54→16:31)
[2019-05-24] MEDS: BLOOD SUGAR DIAGNOSTIC 1 EACH STRIP IN SCH ×4 (07:54→22:07)
[2019-05-24 08:00] VITALS: BP 172/74
[2019-05-24] MEDS: RIVASTIGMINE TARTRATE 4.6 MG PATCH.TD24 TD SCH (08:13)
[2019-05-24] MEDS: LACTOBACILLUS RHAMNOSUS GG 1 EACH CAP.SPRINK PO SCH ×2 (08:13→16:27)
[2019-05-24] MEDS: ATENOLOL 50 MG TABLET PO SCH (08:13)
[2019-05-24] MEDS: FUROSEMIDE 40 MG TABLET PO SCH (08:13)
[2019-05-24] MEDS: AMLODIPINE BESYLATE 5 MG TABLET PO SCH (08:13)
[2019-05-24] MEDS: CLOPIDOGREL BISULFATE 75 MG TABLET PO SCH (08:13)
[2019-05-24] MEDS: OXYBUTYNIN CHLORIDE ER 5 MG TAB PO SCH (08:13)
[2019-05-24] MEDS: Z GUARD REMEDY 2 OZ OINT TP SCH (08:14)
[2019-05-24] MEDS: CLOTRIMAZOLE 1% 15 GM TUBE TP SCH ×2 (08:15→16:27)
--- NOTE | 2019-05-24 08:30 | NUR ---
MS/RN - Notes Seen and examined by Dr. Martino with no new orders at this time. Follow up with Dr. Kay for removal of right femoral permcath.
--- NOTE | 2019-05-24 09:00 | NUR ---
MS/RN - Notes Seen and examined by Dr. Morales with no new orders at this time.
[2019-05-24] MEDS: diphenhydrAMINE HCL ELIX 25 MG/10 ML UDC PO PRN ×2 (10:05→20:10)
[2019-05-24] MEDS: INSULIN REGULAR, HUMAN 100 UNIT/ML 3 ML VIAL SQ PRN (11:58)
--- NOTE | 2019-05-24 12:00 | NUR ---
MS/RN - Accu-check Accu-check done BS= 132 mg/dL. Patient refused 2 units to be given, explained the importance but still doesn't want it.
--- NOTE | 2019-05-24 13:45 | NUR ---
MS/RN - Notes Rusty Ragsdale at bedside updated on plan of care.
[2019-05-24 16:00] VITALS: BP 165/82
--- NOTE | 2019-05-24 18:00 | NUR ---
MS/RN - End of shift summary No new events seen, remain afebrile, blood sugar controlled, no c/o pain, denies shortness of breath, stable on room air. Pending vascular consult with Dr. Kay. Will continue with current medical management.
--- NOTE | 2019-05-24 19:30 | NUR ---
MS/RN RECEIVE PATIENT AWAKE, ALERT, ORIENTED, COMFORTABLE, NO C/O PAIN, NO DISTRESS NOTED, CALL LIGHT IN REACH. FALL PRECAUTION, ENCOURAGED TO USE THE CALL LIGHT FOR ANY ASSISTANCE. WILL MONITOR.
--- NOTE | 2019-05-24 20:12 | NUR ---
MS/RN BENADRYL 25 MG PO WAS GIVEN ORDERED FOR C/O ITCHING IN THE BACK. WILL MONITOR.
[2019-05-24 20:31] VITALS: BP 159/91
[2019-05-24] MEDS: ATORVASTATIN 10 MG TABLET PO SCH (22:08)
[2019-05-25] MEDS: HYDROCODONE/APAP 5/325MG 1 EACH TABLET PO PRN (03:26)
--- NOTE | 2019-05-25 03:32 | NUR ---
MS/RN TRANSLATED BY SEAN, THE GAS PLANT TECHNICIAN, PATIENT HAS LOW BACK PAIN, UNABLE TO SCALE AND ASKING FOR PAIN MED. NORCO 1 TAB WAS GIVEN ORDERED. WILL MONITOR.
--- NOTE | 2019-05-25 04:08 | NUR ---
MS/RN PATIENT IS SLEEPING AT THIS TIME, APPEAR COMFORTABLE, NO SIGNS OF DISTRESS NOTED, CALL LIGHT IN REACH. WILL CONTINUE TO MONITOR.
--- NOTE | 2019-05-25 06:22 | NUR ---
MS/RN; PATIENT IS SLEEPING AT THIS TIME, APPEAR COMFORTABLE, NO SIGNS OF DISTRESS NOTED, BREATHING EVEN AND UNLABORED, CALL LIGHT IN REACH. WILL CONTINUE TO MONITOR.
[2019-05-25 06:24] LABS: BASOPHILS # (AUTO) 0.1 /CMM (0.0-0.2); BASOPHILS % (AUTO) 0.8 % (0.0-2.0); EOSINOPHILS % (AUTO) 2.6 % (0.0-6.0); HEMATOCRIT 32 % (33-45); HEMOGLOBIN 10.7 g/dL (11.5-14.8); LYMPHOCYTES % (AUTO) 13.6 % (20.0-44.0); MEAN CORPUSCULAR HGB CONC 33 g/dl (31.0-36.0); MEAN CORPUSCULAR VOLUME 91 fL (82-100); MONOCYTES # (AUTO) 0.6 /CMM (0.1-1.30); MONOCYTES % (AUTO) 7.5 % (2.0-12.0); NEUTROPHILS # (AUTO) 5.8 /CMM (1.8-8.9); NEUTROPHILS % (AUTO) 75.5 % (43.0-81.0); PLATELET COUNT (AUTO) 332 /CMM (150-450); RED BLOOD CELL COUNT(AUTO) 3.53 MIL/uL (4.0-5.2); WHITE BLOOD COUNT (AUTO) 7.7 K/uL (4.3-11.0)
[2019-05-25 06:44] LABS: CALCIUM, SERUM 10.1 mg/dL (8.5-10.1); CARBON DIOXIDE 25 mmol/L (21-32); CHLORIDE 105 mmol/L (98-107); CREATININE 4.1 mg/dL (0.6-1.3); GLUCOSE 114 mg/dL (74-106); MAGNESIUM 2.2 mg/dL (1.8-2.4); PHOSPHORUS 4.7 mg/dL (2.5-4.9); POTASSIUM 4.2 mmol/L (3.5-5.1); SODIUM SERUM 139 mmol/L (136-145); UREA NITROGEN, BLOOD 44 mg/dL (7-18)
[2019-05-25] MEDS: BLOOD SUGAR DIAGNOSTIC 1 EACH STRIP IN SCH ×4 (07:30→21:33)
--- NOTE | 2019-05-25 07:30 | NUR ---
MS/RN - Assessment Patient is awake, A/O x 2-3, forgetful at times, reality orientation provided, Yoruba speaking, no complaints overnight, denies pain, no apparent distress, afebrile, stable on room air. Saline lock on the LFA is patent, intact, with no signs of infiltration. Labs reviewed with no critical results noted. Fall and aspiration precautions maintained. Pending vascular consult with Dr. Kay. Patient educated on plan of care. Will continue with current medical management.
[2019-05-25] MEDS: NATEGLINIDE 60 MG TABLET PO SCH ×3 (07:52→17:24)
[2019-05-25 08:00] VITALS: BP 173/63
[2019-05-25] MEDS: OXYBUTYNIN CHLORIDE ER 5 MG TAB PO SCH (08:06)
[2019-05-25] MEDS: CLOPIDOGREL BISULFATE 75 MG TABLET PO SCH (08:06)
[2019-05-25] MEDS: RIVASTIGMINE TARTRATE 4.6 MG PATCH.TD24 TD SCH (08:06)
[2019-05-25] MEDS: diphenhydrAMINE HCL ELIX 25 MG/10 ML UDC PO PRN (08:06)
[2019-05-25] MEDS: LACTOBACILLUS RHAMNOSUS GG 1 EACH CAP.SPRINK PO SCH ×2 (08:06→17:24)
[2019-05-25] MEDS: CLOTRIMAZOLE 1% 15 GM TUBE TP SCH ×2 (08:07→17:24)
[2019-05-25] MEDS: Z GUARD REMEDY 2 OZ OINT TP SCH (08:09)
[2019-05-25] MEDS: ATENOLOL 50 MG TABLET PO SCH (08:09)
[2019-05-25] MEDS: AMLODIPINE BESYLATE 5 MG TABLET PO SCH (08:09)
[2019-05-25] MEDS: FUROSEMIDE 40 MG TABLET PO SCH (08:09)
[2019-05-25] MEDS: INSULIN REGULAR, HUMAN 100 UNIT/ML 3 ML VIAL SQ PRN ×2 (11:37→21:48)
--- NOTE | 2019-05-25 11:40 | NUR ---
MS/RN - Accu-check Accu-check done BS= 144 mg/dL. Patient refused 2 units to be given, explained the importance but still doesn't want it.
--- NOTE | 2019-05-25 14:30 | NUR ---
MS/RN - Notes Rusty Ragsdlae at bedside updated on plan of care.
[2019-05-25 16:00] VITALS: BP 167/52
--- NOTE | 2019-05-25 17:45 | NUR ---
MS/RN - End of shift summary Patient in no acute distress, HD treatment ongoing, will remove 2 liters if able to tolerate per HD RN. Will administer Vancomycin post HD, Vanco level=18. All needs attended. Still awaiting for vascular surgeon (Dr. Kay) to evaluate HD line. No fall/injury this shift. Will continue with current medical management.
--- NOTE | 2019-05-25 19:15 | NUR ---
MS/RN OPENING NOTES PT RECEIVED WITH EYES CLOSED, RESPONSIVE TO NAME. HOB ELEVATED. FINISHING HEMODIALYSIS VIA RIGHT FEMORAL PERMACATH. IV TO LFA PATENT AND INTACT. ON ROOM AIR, BREATHING EVENA ND UNLABORED. NO S/S OF SOB OR PAIN AT THIS TIME. BED IN LOW/LOCKED POSITION WITH BILAT. UPPER SIDE RAILS IN PLACE. BED ALARM ON FOR SAFETY. WILL CONTINUE TO MONITOR
[2019-05-25 20:50] VITALS: BP 164/68
[2019-05-25] MEDS: VANCOMYCIN 500 MG in IV D5W 100 ML IV PRN (21:33)
[2019-05-25] MEDS: ATORVASTATIN 10 MG TABLET PO SCH (21:33)
--- NOTE | 2019-05-25 21:49 | NUR ---
MS/RN NOTES PT BGL 135. HELD INSULIN. PT DOES NOT WANT TO FINISH DINNER TRAY AND DOES NOT WANT ANY SNACKS/JUICE.
--- NOTE | 2019-05-26 00:26 | NUR ---
MS/RN NOTES PT ROUNDING COMPLETED. THERMOSTAT ADJUSTED PER PT REQUEST AND WARM BLANKET PROVIDED.
--- NOTE | 2019-05-26 06:57 | NUR ---
MS/RN CLOSING NOTES PT AWAKE, RESTING COMFORTABLY IN BED. FRISIAN SPEAKING, ABLE TO MAKE SOME NEEDS KNOWN. ON ROOM AIR, BREATHING EVEN AND UNLABORED. NO DISTRESS NOTED, DENIES PAIN. NO S/S OF SOB. IV TO LFA PATENT AND INTACT. PRN VANCO ADMINISTERED AFTER HD. NO SIGNIFICANT CHANGES OVERNIGHT. BED IN LOW/LOCKED POSITION WITH CALL LIGHT IN REACH. HOB ELEVATED. BILAT. UPPER SIDE RAILS IN PLACE. BED ALARM ON FOR SAFETY. WILL ENDORSE TO DAY SHIFT RN KASSY.
[2019-05-26 08:00] VITALS: BP 159/80
--- NOTE | 2019-05-26 08:00 | NUR ---
MS RN OPENING NOTES Received Patient resting and asleep in bed. A/O x 2, with episodes of confusion and Icelandic speaking. VS stable with no acute distress. Breathing even and unlabored on room air with no respiratory distress. Denies pain. No signs and symptoms of pain. 22g PIV on LFA clean, dry, intact and flushing well. Safety precautions in place. Bed locked and set to lowest position with side rails x 3 up. All needs rendered at this time. Call light within reach. Will continue to monitor.
[2019-05-26] MEDS: LACTOBACILLUS RHAMNOSUS GG 1 EACH CAP.SPRINK PO SCH ×2 (08:24→17:30)
[2019-05-26] MEDS: NATEGLINIDE 60 MG TABLET PO SCH ×3 (08:24→17:30)
[2019-05-26] MEDS: OXYBUTYNIN CHLORIDE ER 5 MG TAB PO SCH (08:24)
[2019-05-26] MEDS: BLOOD SUGAR DIAGNOSTIC 1 EACH STRIP IN SCH ×4 (08:24→22:27)
[2019-05-26] MEDS: FUROSEMIDE 40 MG TABLET PO SCH (08:24)
[2019-05-26] MEDS: CLOPIDOGREL BISULFATE 75 MG TABLET PO SCH (08:25)
[2019-05-26] MEDS: AMLODIPINE BESYLATE 5 MG TABLET PO SCH (08:25)
[2019-05-26] MEDS: CLOTRIMAZOLE 1% 15 GM TUBE TP SCH ×2 (08:25→17:31)
[2019-05-26] MEDS: ATENOLOL 50 MG TABLET PO SCH (08:25)
[2019-05-26] MEDS: Z GUARD REMEDY 2 OZ OINT TP SCH (08:26)
[2019-05-26] MEDS: RIVASTIGMINE TARTRATE 4.6 MG PATCH.TD24 TD SCH (08:27)
--- NOTE | 2019-05-26 08:33 | NUR ---
MS RN NOTES Replaced Exelon Patch on RIGHT UPPER ARM and placed new Patch on LEFT UPPER ARM. Patient in stable condition. Will continue to monitor.
[2019-05-26] MEDS ORDERED: BISACODYL SUPP (10 MG) 10 MG/SUPP.RECT SUPP.RECT RC PRN (11:30)
[2019-05-26] MEDS: ACETAMINOPHEN 325 MG TABLET PO PRN (11:35)
[2019-05-26 11:41] LABS: BASOPHILS # (AUTO) 0.3 /CMM (0.0-0.2); EOSINOPHILS % (AUTO) 2.9 % (0.0-6.0); HEMATOCRIT 38 % (33-45); HEMOGLOBIN 12.4 g/dL (11.5-14.8); LYMPHOCYTES # (AUTO) 0.9 /CMM (0.8-4.8); LYMPHOCYTES % (AUTO) 13.5 % (20.0-44.0); MEAN CORPUSCULAR HGB CONC 32 g/dl (31.0-36.0); MEAN CORPUSCULAR VOLUME 99 fL (82-100); MONOCYTES # (AUTO) 0.5 /CMM (0.1-1.30); MONOCYTES % (AUTO) 7.5 % (2.0-12.0); NEUTROPHILS # (AUTO) 4.6 /CMM (1.8-8.9); NEUTROPHILS % (AUTO) 72.1 % (43.0-81.0); PLATELET COUNT (AUTO) 269 /CMM (150-450); RED BLOOD CELL COUNT(AUTO) 3.86 MIL/uL (4.0-5.2); WHITE BLOOD COUNT (AUTO) 6.4 K/uL (4.3-11.0)
[2019-05-26 13:15] LABS: CARBON DIOXIDE 25 mmol/L (21-32); CHLORIDE 100 mmol/L (98-107); CREATININE 3.2 mg/dL (0.6-1.3); GLUCOSE 121 mg/dL (74-106); MAGNESIUM 1.9 mg/dL (1.8-2.4); PHOSPHORUS 4.3 mg/dL (2.5-4.9); POTASSIUM 4.1 mmol/L (3.5-5.1); SODIUM SERUM 136 mmol/L (136-145); UREA NITROGEN, BLOOD 32 mg/dL (7-18)
[2019-05-26 16:00] VITALS: BP 167/73
[2019-05-26] MEDS: DOCUSATE SODIUM 100 MG CAPSULE PO SCH (17:30)
--- NOTE | 2019-05-26 18:59 | NUR ---
MS RN CLOSING NOTES Received Patient resting and asleep in bed. A/O x 3, with episodes of confusion and Slovenian speaking. VS stable with no acute distress. Breathing even and unlabored on room air with no respiratory distress. Denies pain. No signs and symptoms of pain. 22g PIV on LFA clean, dry, intact and flushing well. Safety precautions in place. Bed locked and set to lowest position with side rails x 2 up. All needs rendered at this time. Call light within reach. Will endorse plan of care to oncoming shift.
[2019-05-26 20:00] VITALS: BP 138/61
[2019-05-26] MEDS: INSULIN REGULAR, HUMAN 100 UNIT/ML 3 ML VIAL SQ PRN (22:28)
[2019-05-26] MEDS: ATORVASTATIN 10 MG TABLET PO SCH (22:29)
--- NOTE | 2019-05-27 06:29 | NUR ---
PATENTS EXAMINER NOTES PT SLEEPING. AROUSABLE TO TACTILE STIMULI. NOT IN ANY DISTRESS. NO SOB NOTED. NO S/SX OF ANY PAIN OR DISCOMFORT AT THIS TIME. ON TELE SR @ 62 WITH IVF INFUSING WELL. MONITORED ACCORDINGLY. CLL LIGHT WITHIN REACH. BED IN LOWEST POSITION. SR UP X 3 WITH BED ALARM ON FOR SAFETY. WILL ENDORSE TO NEXT SHIFT. Addendum: 05/27/19 at 0634 by FIONA ISAAC RN DISREGARD NOTES ABOVE. NOTES FOR DIFFERENT PATIENT.
--- NOTE | 2019-05-27 06:32 | NUR ---
MS RN NOTES AWAKE & RESPONSIVE. NOT IN ANY DISTRESS. NO SOB NOTED. DENIES ANY PAIN OR DISCOMFORT AT THIS TIME. WITH IV-HL PATENT & INTACT. MONITORED ACCORDINGLY. CALL LIGHT WITHIN REACH. BED IN LOWEST POSITION. SR UP X 2 FOR SAFETY. WILL ENDORSE TO NEXT SHIFT.
[2019-05-27] MEDS: BLOOD SUGAR DIAGNOSTIC 1 EACH STRIP IN SCH ×2 (06:49→12:13)
--- NOTE | 2019-05-27 07:30 | NUR ---
m/s spareribs trimmer: initial assessment received pt up in chair, wearing own clothes. no c/o pain or any discomfort. pt for hd tx today. pt made aware and will hold b/p meds. pt verbalized understanding. instructed to call for assistance. will continue to monitor.
[2019-05-27 08:00] VITALS: BP 128/63
[2019-05-27] MEDS: RIVASTIGMINE TARTRATE 4.6 MG PATCH.TD24 TD SCH (08:15)
[2019-05-27] MEDS: LACTOBACILLUS RHAMNOSUS GG 1 EACH CAP.SPRINK PO SCH (08:15)
[2019-05-27] MEDS: DOCUSATE SODIUM 100 MG CAPSULE PO SCH (08:16)
[2019-05-27] MEDS: OXYBUTYNIN CHLORIDE ER 5 MG TAB PO SCH (08:16)
[2019-05-27] MEDS: CLOPIDOGREL BISULFATE 75 MG TABLET PO SCH (08:16)
[2019-05-27] MEDS: NATEGLINIDE 60 MG TABLET PO SCH ×2 (08:16→12:14)
[2019-05-27] MEDS: FUROSEMIDE 40 MG TABLET PO SCH (08:16)
[2019-05-27] MEDS: CLOTRIMAZOLE 1% 15 GM TUBE TP SCH ×2 (08:18→09:00)
[2019-05-27 08:19] VITALS: BP 128/63
[2019-05-27] MEDS: Z GUARD REMEDY 2 OZ OINT TP SCH ×2 (08:19→09:00)
[2019-05-27] MEDS: AMLODIPINE BESYLATE 5 MG TABLET PO SCH (08:19)
[2019-05-27] MEDS: ATENOLOL 50 MG TABLET PO SCH (08:20)
--- NOTE | 2019-05-27 08:46 | NUR ---
m/s beauty sales consultant: notes place a call to [facility], spoke to gabriella (lab) for f/u blood culture result, stated, "it will be available on the , it takes 5 days." [facility]
--- NOTE | 2019-05-27 09:40 | NUR ---
m/s pin sorter and bagger: nephro f/u seen by dr. choi. pt for hd today. pt wants to go home today, awaiting for final blood culture result. pt made aware with staff translating in kiswahili.
--- NOTE | 2019-05-27 10:00 | NUR ---
m/s data analysis manager: notes pt refused skin assessment and wound tx. pt still wearing her own clothes. pt wants to go home, but informed her that her final blood culture result will be available tomorrow.
[2019-05-27 11:17] LABS: BASOPHILS % (AUTO) 0.6 % (0.0-2.0); EOSINOPHILS % (AUTO) 2.1 % (0.0-6.0); HEMATOCRIT 34 % (33-45); HEMOGLOBIN 11.4 g/dL (11.5-14.8); LYMPHOCYTES # (AUTO) 1.2 /CMM (0.8-4.8); LYMPHOCYTES % (AUTO) 16.9 % (20.0-44.0); MEAN CORPUSCULAR HGB CONC 34 g/dl (31.0-36.0); MEAN CORPUSCULAR VOLUME 92 fL (82-100); MONOCYTES # (AUTO) 0.4 /CMM (0.1-1.30); MONOCYTES % (AUTO) 5.9 % (2.0-12.0); NEUTROPHILS # (AUTO) 5.4 /CMM (1.8-8.9); NEUTROPHILS % (AUTO) 74.5 % (43.0-81.0); PLATELET COUNT (AUTO) 370 /CMM (150-450); WHITE BLOOD COUNT (AUTO) 7.3 K/uL (4.3-11.0)
[2019-05-27 11:25] LABS: CALCIUM, SERUM 10.3 mg/dL (8.5-10.1); CARBON DIOXIDE 26 mmol/L (21-32); CHLORIDE 100 mmol/L (98-107); CREATININE 4.2 mg/dL (0.6-1.3); GLUCOSE 183 mg/dL (74-106); PHOSPHORUS 5.4 mg/dL (2.5-4.9); POTASSIUM 3.8 mmol/L (3.5-5.1); SODIUM SERUM 137 mmol/L (136-145); UREA NITROGEN, BLOOD 46 mg/dL (7-18)
[2019-05-27] MEDS: INSULIN REGULAR, HUMAN 100 UNIT/ML 3 ML VIAL SQ PRN (12:13)
--- NOTE | 2019-05-27 12:30 | NUR ---
m/s centrifugal machine tender: notes rogerio (son) here and wants to take her mother home now. informed him that we are still awaiting for final blood culture result and it will be available tomorrow and pt for hemodialysis treatment with antibiotic tx, but son very adamant of taking her home now and wants me to call the doctor. cn aware. annika ([facility]) notified via exchange.
--- NOTE | 2019-05-27 12:35 | NUR ---
m/s tapping machine operator: notes annika ([facility]) called back and made aware that son wants to take her home and wants her discharge immediately, stated, "i will come up and talk to him." son made aware. also son spoke to cn in bulgarian language.
--- NOTE | 2019-05-27 13:50 | NUR ---
m/s laryngologist: notes annika cabrera ([facility]) at bedside talking to son. after talking to son, annika ([facility]) informed me that son will voluntary leaving the hospital against medical advice. son aware that she is for hd tx, just awaiting for hd nurse. son refused hd tx and antibiotic after hd tx as stated. cn made aware. f/u made to case management by cn re: outpatient hd with iv antibiotic.
--- NOTE | 2019-05-27 14:00 | NUR ---
m/s residential construction instructor: notes shawnee (hd nurse) here and will talk to the son about giving her a couple of hours tx. son agreed only for 2 hours. cn made aware. shawnee (hd nurse) preparing pt for tx.
--- NOTE | 2019-05-27 14:00 | NUR ---
m/s laborer hide house: notes discharge ama signed by son and son been told by the doctor the risks and consequences involving in leaving the hospital at this time, the benefits of continued treatment and hospitalization; also nurse given discharge ama instruction to son and went over with him the risks and consequences involving leaving ama. son verbalized understanding and adamant of taking her home after hemodialysis tx.
--- NOTE | 2019-05-27 16:30 | NUR ---
m/s convertible top installer: notes hd completed with 2 liters removed. b/p 120/48, hr 68. awaiting for son to pick her up. pt refused skin photos prior to discharge ama.
--- NOTE | 2019-05-27 16:50 | NUR ---
m/s bank courier: notes h/l removed with tip intact. son here to filler picker the pt.
[2019-05-27] MEDS: VANCOMYCIN 500 MG in IV D5W 100 ML IV PRN (16:54)
--- NOTE | 2019-05-27 16:55 | NUR ---
m/s rate quoting operator: notes vancomycin 500mg/100ml given by hd nurse after tx.
--- NOTE | 2019-05-27 17:00 | NUR ---
m/s taxi truck driver: discharged discharged home against medical advice via private car accompanied by son with all d'c ama instructions.
== END 2019-05-27 17:00 | disposition left against medical advice (07) | DRG 280 ==
LOC: ER 20:44 → TELE 23:29 → MED 05-18 08:22
PROVIDERS: ADMIT Nurse Practitioner Acute Care; ATTEND Hospitalist
PROC: 5A1D70Z Performance of Urinary Filtration, Intermittent, Less than 6 Hours Per Day (ICD-10-PCS; principal; 2019-05-18)
DX: T80.211A Bloodstream infection due to central venous catheter, initial encounter (principal); A41.01 Sepsis due to Methicillin susceptible Staphylococcus aureus; I21.A1 Myocardial infarction type 2; G93.41 Metabolic encephalopathy; N18.6 End stage renal disease; J18.9 Pneumonia, unspecified organism; E87.1 Hypo-osmolality and hyponatremia; I13.2 Hypertensive heart and chronic kidney disease with heart failure and with stage 5 chronic kidney disease, or end stage renal disease; J90 Pleural effusion, not elsewhere classified; E44.1 Mild protein-calorie malnutrition; E11.22 Type 2 diabetes mellitus with diabetic chronic kidney disease; I50.9 Heart failure, unspecified; E83.52 Hypercalcemia; I48.2 Chronic atrial fibrillation; Z99.2 Dependence on renal dialysis; E78.5 Hyperlipidemia, unspecified; D64.9 Anemia, unspecified; F03.90 Unspecified dementia, unspecified severity, without behavioral disturbance, psychotic disturbance, mood disturbance, and anxiety; I25.10 Atherosclerotic heart disease of native coronary artery without angina pectoris; I25.2 Old myocardial infarction; Z79.84 Long term (current) use of oral hypoglycemic drugs; Z79.899 Other long term (current) drug therapy; Z79.02 Long term (current) use of antithrombotics/antiplatelets; E83.39 Other disorders of phosphorus metabolism; Z83.3 Family history of diabetes mellitus; Z91.19 Patient's noncompliance with other medical treatment and regimen; Z91.14 Patient's other noncompliance with medication regimen; Z82.49 Family history of ischemic heart disease and other diseases of the circulatory system; Z79.01 Long term (current) use of anticoagulants; Z86.73 Personal history of transient ischemic attack (TIA), and cerebral infarction without residual deficits
CPT/HCPCS: 36415; 71045-TC; 80048-TC; 80061-TC; 80076-TC; 80202-TC; 82962-TC; 83605-TC; 83735-TC; 83880; 84100-TC; 84484-TC; 85025-TC; 85730-TC; 86706; 86850-TC; 87040-TC; 87081-TC; 87340; 87400; 90935-TC; 93307-TC; A6403; G0378; J0692; J1815; J2270; J2405; J2997; J3370; J7030; J7050; J7060; Q0163

== ENCOUNTER 2019-09-18 22:03 | Inpatient (IN) | payer MEDICARE, MEDICAID ==
[~2019-09-18] VITALS: Ht 157.5 cm; Wt 75.7 kg
[~2019-09-18 22:03] MED LIST changes: +APIX2.5T PO; +ATOR20TA PO; +DIPH25TA25 PO; +EXELON; -GLIM2TAB2 PO; +GLIM2TAB3 PO; +METO-357 PO; +SUVO15TA PO
--- NOTE | 2019-09-18 22:07 | NUR ---
[id number] FROM HOME C/O SOB. PER RA, 90% ROOM AIR. PT ARRIVED TO ED ON CPAP . PT ALERT AND REPONSIVE. VERY AGITATED. NOTED W/ RAC HD SHUNT AND L FEMORAL HD CATH. PT IS PLACED ON A MONITOR ,
[2019-09-18] MEDS ORDERED: ALBUTEROL FS 2.5 MG/3 ML VIAL.NEB ONE (22:28)
[2019-09-18] MEDS ORDERED: methylPREDNISolone SOD SUCC 125 MG/2ML VIAL IV ONE (22:30)
[2019-09-18] MEDS ORDERED: ALBUTEROL FS 2.5 MG/0.5 ML VIAL.NEB NEB ONE (22:30)
[2019-09-18 22:35] LABS: BASOPHILS # (AUTO) 0.1 /CMM (0.0-0.2); BASOPHILS % (AUTO) 1.4 % (0.0-2.0); EOSINOPHILS % (AUTO) 2.1 % (0.0-6.0); HEMATOCRIT 40 % (33-45); HEMOGLOBIN 12.8 g/dL (11.5-14.8); LYMPHOCYTES # (AUTO) 1.2 /CMM (0.8-4.8); LYMPHOCYTES % (AUTO) 17.1 % (20.0-44.0); MEAN CORPUSCULAR HGB CONC 32 g/dl (31.0-36.0); MEAN CORPUSCULAR VOLUME 95 fL (82-100); MONOCYTES # (AUTO) 0.4 /CMM (0.1-1.30); MONOCYTES % (AUTO) 5.6 % (2.0-12.0); NEUTROPHILS # (AUTO) 5.2 /CMM (1.8-8.9); NEUTROPHILS % (AUTO) 73.8 % (43.0-81.0); PLATELET COUNT (AUTO) 318 /CMM (150-450); RED BLOOD CELL COUNT(AUTO) 4.21 MIL/uL (4.0-5.2)
[2019-09-18] MEDS ORDERED: methylPREDNISolone SOD SUCC 125 MG/2ML VIAL ONE (22:35)
--- NOTE | 2019-09-18 23:13 | NUR ---
PT REMAINED ON A BIPAP AND CONTINOUS MONITORING. SATTING 100%. SON AT THE BED SIDE.
[2019-09-18 23:14] LABS: CALCIUM, SERUM 10.6 mg/dL (8.5-10.1); CARBON DIOXIDE 27 mmol/L (21-32); CHLORIDE 99 mmol/L (98-107); CREATININE 4.7 mg/dL (0.6-1.3); GLUCOSE 132 mg/dL (74-106); POTASSIUM 4.5 mmol/L (3.5-5.1); SODIUM SERUM 137 mmol/L (136-145); UREA NITROGEN, BLOOD 50 mg/dL (7-18)
[2019-09-18] MEDS ORDERED: SEVE800T8 PO (23:24)
[2019-09-18] MEDS ORDERED: ATOR40TA GT (23:24)
[2019-09-18] MEDS ORDERED: METO-358 PO (23:24)
[2019-09-18] MEDS ORDERED: LISI-604 GT (23:24)
[2019-09-18] MEDS ORDERED: GABA-534 PO (23:24)
--- NOTE | 2019-09-18 23:25 | NUR ---
HOME MEDS UPDATED PER LIST PROVIDED BY THE SON
[2019-09-18 23:27] LABS: ALANINE AMINOTRANSFERASE 12 U/L (12-78); ALBUMIN 3.8 g/dL (3.4-5.0); ALKALINE PHOSPHATASE 92 U/L (46-116); ASPARTATE AMINOTRANSFERASE 15 U/L (15-37); B-TYPE NATRIURETIC PEPTIDE 8686 PG/ML (0-125); BILIRUBIN,DIRECT 0.1 mg/dL (0.0-0.2); BILIRUBIN,TOTAL 0.4 mg/dL (0.2-1.0)
[2019-09-18] MEDS ORDERED: AZITHROMYCIN 500 MG VIAL ONE (23:30)
[2019-09-18] MEDS ORDERED: AZITHROMYCIN 500 MG in IV D5W 250 ML IV ONE (23:30)
[2019-09-18] MEDS ORDERED: CEFTRIAXONE 1GM BAG (ER ONLY) 1 GM/50 ML PIGGYBACK IV ONE (23:30)
[2019-09-18] MEDS ORDERED: CEFTRIAXONE 1GM BAG (ER ONLY) 50 ML IV ONE (23:30)
--- NOTE | 2019-09-18 23:52 | NUR ---
PT IS TAKEN OFF FROM THE BIPAP AND PLACED ON O2 AT 4LPM VIA NC. WILL CONT TO MONITOR PT CLOSELY
[2019-09-19] VITALS (24 sets, daily range): BP systolic 119–173; BP diastolic 47–96
--- NOTE | 2019-09-19 00:14 | NUR ---
PT WAS PLACED BACK ON BIPAP SHE COULD NOT TOLERATE THE SUPPLEMENTAL O2 VIA NC,
--- NOTE | 2019-09-19 00:41 | NUR ---
ICU BED 256
--- NOTE | 2019-09-19 01:24 | NUR ---
REPORT GIVEN TO MARTELL AT ICU
[2019-09-19] MEDS ORDERED: MAGNESIUM HYDROXIDE 30 ML UDC PO PRN (01:30)
[2019-09-19] MEDS ORDERED: MAG HYDROX/AL HYDROX/SIMETH 30 ML UDC PO PRN (01:30)
[2019-09-19] MEDS ORDERED: ACETAMINOPHEN 325 MG TABLET PO PRN (01:30)
[2019-09-19] MEDS ORDERED: ALBUTEROL FS 2.5 MG/3 ML VIAL.NEB NEB PRN (01:30)
[2019-09-19] MEDS ORDERED: MORPHINE SULFATE INJ 2 MG/ML DISP.SYRIN IV PRN (01:30)
[2019-09-19] MEDS ORDERED: ONDANSETRON HCL/PF 4 MG/2 ML VIAL IVP PRN (01:30)
[2019-09-19] MEDS ORDERED: HYDROCODONE/APAP 5/325MG 1 EACH TABLET PO PRN (01:30)
[2019-09-19] MEDS ORDERED: DEXTROSE 50%-WATER 50 ML DISP.SYRIN IV PRN (02:00)
--- NOTE | 2019-09-19 02:00 | NUR ---
pt was transferred to icu under ACLS
[2019-09-19] MEDS ORDERED: ASPIRIN 325 MG TABLET ONE (02:01)
[2019-09-19] MEDS ORDERED: ASPIRIN 325 MG TABLET PO SCH (02:30)
[2019-09-19] MEDS ORDERED: CEFEPIME 1 GM in IV NS 0.9% 50 ML IV SCH (03:00)
--- NOTE | 2019-09-19 04:46 | NUR ---
PHYSICIAN ALLERGIST IMMUNOLOGIST. ADMISSION. RECEIVED THE PT FRON ER VIA [employer]. PT AWAKE, ALERT, FOLLOW COMMANDS, BIPAP ON SAT 98%FEED MILL MANAGER SHOWING CONTROLLED AFIB, IV LT HAND 18G,LT FEMORAL HD CATH,RT HAND AV FISTULA.HOB ELEVATED, AFEBRILE. WILL CONTINUE TO MONITOR VITALS.
--- NOTE | 2019-09-19 05:38 | NUR ---
TRUCK DOCK MATERIAL MOVER. PT REFUSED INFLUENZA SWAB TEST.
[2019-09-19] MEDS ORDERED: FUROSEMIDE 40 MG/4 ML VIAL IV SCH (06:30)
[2019-09-19] MEDS ORDERED: LORAZEPAM INJ 2 MG/ML VIAL IV PRN (06:30)
--- NOTE | 2019-09-19 06:32 | NUR ---
STEVEDORE DOCK.PT WAS AGITATED, NOTIFIED YURI DNP LASIX 40MGIV ONCE,AND ATIVAN 0.5MG IV ONCE
--- NOTE | 2019-09-19 07:45 | NUR ---
ICU/RN: Pt oriented and educated by Uzbek speaking staff regarding POC. Refuses rapid influenza swab, states "I don't want it. I know I don't have the flu." Noted. friction paint machine tender aware.
[2019-09-19] MEDS: BLOOD SUGAR DIAGNOSTIC 1 EACH STRIP IN SCH ×4 (07:57→22:45)
[2019-09-19] MEDS ORDERED: FEE PK DOSING 1 MIN EA MC ONE (08:01)
[2019-09-19] MEDS: APIXABAN 2.5 MG TABLET PO SCH ×2 (08:05→16:27)
[2019-09-19] MEDS: methylPREDNISolone SOD SUCC 125 MG/2ML VIAL IV SCH ×3 (08:05→16:28)
[2019-09-19] MEDS: INSULIN REGULAR, HUMAN 100 UNIT/ML 3 ML VIAL SQ PRN ×4 (08:07→23:24)
[2019-09-19] MEDS: ATORVASTATIN 40 MG TABLET PO SCH (08:07)
[2019-09-19] MEDS: FUROSEMIDE 40 MG TABLET PO SCH (08:07)
[2019-09-19] MEDS: AMLODIPINE BESYLATE 5 MG TABLET PO SCH (08:09)
[2019-09-19] MEDS: Z GUARD REMEDY 2 OZ OINT TP PRN (08:09)
--- NOTE | 2019-09-19 09:05 | NUR ---
ICU/RN: Pt SOB, anxious, tachypneic off BiPAP. Awaiting HD. Placed back on BiPAP after less than [address] Queen notified.
[2019-09-19 10:02] LABS: ABG BASE EXCESS -0.7 mmol/L; ABG OXYGEN SATURATION 95.4 % (92.0-98.5); ABG PCO2 49.8 mmHg (35.0-45.0); ABG PH 7.331 (7.350-7.450); ABG PO2 84.6 mmHg (75.0-100.0); AaDO2 143.3 mmHg; COHb 0.3 % (0.5-1.5); MetHb 0.4 % (0.0-1.5); O2Hb 94.7 % (94.0-97.0); SITE, ABG Left Radial; VENT MODE, BG BIPAP 15/5 RR4 40%
[2019-09-19] MEDS ORDERED: ALBUTEROL FS 2.5 MG/3 ML VIAL.NEB NEB SCH (11:30)
--- NOTE | 2019-09-19 12:06 | NUR ---
RN NOTES BLOOD GLUCOSE AT 1200 WAS 122, NO INSULIN ADMINISTERED PER MILD SLIDING SCALE.
--- NOTE | 2019-09-19 15:25 | NUR ---
RN NOTES PATIENT HAS BEEN DIALYZED, TOLERATED WELL, VSS. 3L WAS REMOVED, IV VANCO POST HD GIVEN. WILL CONTINUE TO MONITOR FOR ANY CHANGES.
--- NOTE | 2019-09-19 15:57 | NUR ---
RN NOTES PT WAS GETTING ANXIOUS AND RESTLESS STATING "I CANT TAKE IT ANYMORE" IN CITIZEN OF [place]. BiPAP HAS BEEN REMOVED POST HD, AND PT IS ON 4L VIA NC. TOLERATING NC WELL, O2 SAT IS WNL, PT DENIES ANY SOB. WILL CONTINUE TO MONITOR FOR ANY CHANGES
[2019-09-19] MEDS: ALBUTEROL HALF STRENGTH 1.25 MG/3 ML VIAL.NEB NEB SCH ×3 (15:59→23:30)
[2019-09-19] MEDS ORDERED: VANCOMYCIN 1 GM in IV D5W 250 ML IV ONE (16:00)
[2019-09-19] MEDS: CEFEPIME 1 GM in IV D5W 50 ML IV SCH (16:40)
[2019-09-19] MEDS ORDERED: ALTEPLASE CATHFLO 2 MG/VIAL XX ONE (17:00)
--- NOTE | 2019-09-19 18:41 | NUR ---
PT IS RESTING IN BED COMFORTABLY AT THIS TIME. SHE'S VERY ANXIOUS AND RESTLESS, STATES SHE WANTS TO GET OUT OF BED, SHE NEEDS CONSTANT REASSURANCE. PT HAS NOT SLEPT FOR 3 DAYS AND SAYS SHE CANT EVEN THOUGH SHE TRIES. VITAL SIGNS ARE WNL, BREATHING IS EVEN AND UNLABORED, TOLERATING NC WELL. WILL ENDORSE TO NIGHTSHIFT RN FOR CONTINUITY OF CARE.
--- NOTE | 2019-09-19 19:30 | NUR ---
DIVISION ENGINEER NOTE RECEIVED PT A/O X2-3 AND [place] SPEAKING. NOTED WITH EPISODES OF RESTLESSNESS AND ANXIOUSNESS. BREATHING UNLABORED. ON 4L OF O2 VIA NC AND SATURATING 94%. DENIES PAIN. TELE- AFIB CONTROLLED 70'S. BED ALARM ENABLED. CALL LIGHT WITHIN REACH. WILL MONITOR.
--- NOTE | 2019-09-19 22:00 | NUR ---
ICER HAND NOTE DIALYSIS NURSE AT BEDSIDE AND ADMINISTERED CATHFLO ACTIVASE 4MG TO LEFT FEMORAL HD PERMACATH.
[2019-09-19] MEDS: LORAZEPAM INJ 2 MG/ML VIAL IV PRN (23:03)
[2019-09-20] VITALS (33 sets, daily range): BP systolic 90–165; BP diastolic 45–112
[2019-09-20] MEDS: ALBUTEROL HALF STRENGTH 1.25 MG/3 ML VIAL.NEB NEB SCH ×7 (00:05→23:43)
--- NOTE | 2019-09-20 00:15 | NUR ---
COMMUNICATIONS EQUIPMENT OPERATOR NOTE PLACED PT ON BIPAP. NOTED VERY AGITATED, ANXIOUS AND RESTLESS REMOVING NC, BP CUFF, TELE-MONITOR. ALSO NOTED TO BE WHEEZING. RT AT BEDSIDE WITH BREATHING TX. WILL MONITOR.
[2019-09-20 04:20] LABS: BASOPHILS % (AUTO) 0.1 % (0.0-2.0); HEMATOCRIT 32 % (33-45); HEMOGLOBIN 10.4 g/dL (11.5-14.8); LYMPHOCYTES # (AUTO) 0.3 /CMM (0.8-4.8); LYMPHOCYTES % (AUTO) 5.1 % (20.0-44.0); MEAN CORPUSCULAR HGB CONC 32 g/dl (31.0-36.0); MEAN CORPUSCULAR VOLUME 96 fL (82-100); MONOCYTES # (AUTO) 0.2 /CMM (0.1-1.30); MONOCYTES % (AUTO) 4.4 % (2.0-12.0); NEUTROPHILS # (AUTO) 4.7 /CMM (1.8-8.9); NEUTROPHILS % (AUTO) 90.4 % (43.0-81.0); PLATELET COUNT (AUTO) 248 /CMM (150-450); RED BLOOD CELL COUNT(AUTO) 3.35 MIL/uL (4.0-5.2); WHITE BLOOD COUNT (AUTO) 5.2 K/uL (4.3-11.0)
[2019-09-20 04:41] LABS: ALANINE AMINOTRANSFERASE 12 U/L (12-78); ALBUMIN 3.7 g/dL (3.4-5.0); ALKALINE PHOSPHATASE 68 U/L (46-116); ASPARTATE AMINOTRANSFERASE 10 U/L (15-37); BILIRUBIN,TOTAL 0.3 mg/dL (0.2-1.0); CALCIUM, SERUM 10.5 mg/dL (8.5-10.1); CARBON DIOXIDE 27 mmol/L (21-32); CHLORIDE 103 mmol/L (98-107); CREATININE 4.5 mg/dL (0.6-1.3); GLUCOSE 174 mg/dL (74-106); MAGNESIUM 2.4 mg/dL (1.8-2.4); PHOSPHORUS 6.4 mg/dL (2.5-4.9); POTASSIUM 4.8 mmol/L (3.5-5.1); SODIUM SERUM 139 mmol/L (136-145); TOTAL PROTEIN, SERUM 7.7 g/dL (6.4-8.2); UREA NITROGEN, BLOOD 51 mg/dL (7-18)
[2019-09-20 05:41] LABS: CHOLESTEROL 116 mg/dL (<200); HDL CHOLESTEROL 57 mg/dL (40-60); LDL 45 mg/dL (0-99); TRIGLYCERIDES 72 mg/dL (30-150)
[2019-09-20] MEDS ORDERED: VANCOMYCIN 500 MG in IV D5W 100 ML IV PRN (06:00)
--- NOTE | 2019-09-20 06:59 | NUR ---
BANK VAULT ATTENDANT NOTE PT REMAINED STABLE DURING SHIFT. REMAINS ON BIPAP AND TOLERATING SETTINGS WELL. ALL NEEDS ATTENDED TO PROMPTLY. ALL SAFETY MEASURES IN PLACE. BILATERAL SOFT WRIST RESTRAINTS IN PLACE. REPOSITIONED Q2H.KEPT CLEAN AND DRY. WILL ENDORSE TO NEXT SHIFT FOR CONTINUITY OF CARE.
--- NOTE | 2019-09-20 07:20 | NUR ---
CASH APPLICATIONS MANAGER OPENING NOTE RECEIVED REPORT FROM PM NURSE. PT IN BED .A/O X2-3 AND [place]GI[place] SPEAKING. ON BIPAP.TOLERATING SETTINGS WELL.SATURATING 97%.PATIENT RESTLESS.ON BILATERAL SOFT RESTRAINTS.TAKE OFF RESTRAINTS AND VISUAL CHECK DONE.PATIENT REMOVING LINES REMOVING EQUIPMENT,TRYING TO GET OUT FROM BED AND NON COMPLAINT ABOUT CARE.IV ON LAC #18 INTACT AND PATENT .FLUSHING WELL. DENIES PAIN. ON TELE MONITOR - AFIB CONTROLLED .HR70'S. BED IS LOW AND IN LOCKED POSITION.CALL LIGHT IN REACH.BED ALARM ON.SRX4.WILL CONTINUE TO MONITOR.
[2019-09-20] MEDS: BLOOD SUGAR DIAGNOSTIC 1 EACH STRIP IN SCH ×4 (07:43→22:31)
--- NOTE | 2019-09-20 07:45 | NUR ---
COLLEGE SPORTS COACH NOTE TRIED TO CHANGE TO NASAL CANULA.PATIENT GOT TACHYPNEIC.DESATURATING WITH 5L NASAL CANULA TO 75%.PLACED BACK ON BIPAP.
[2019-09-20] MEDS: methylPREDNISolone SOD SUCC 125 MG/2ML VIAL IV SCH ×3 (08:17→17:14)
[2019-09-20 09:17] LABS: ABG PCO2 37.6 mmHg (35.0-45.0); ABG PH 7.395 (7.350-7.450); ABG PO2 68.6 mmHg (75.0-100.0); AaDO2 173.4 mmHg; COHb 0.2 % (0.5-1.5); MetHb 0.3 % (0.0-1.5); O2Hb 93.5 % (94.0-97.0); SITE, ABG Left Brachial; VENT MODE, BG 20/5 RR4 40%
[2019-09-20] MEDS: FUROSEMIDE 40 MG TABLET PO SCH (09:20)
[2019-09-20] MEDS: ATORVASTATIN 40 MG TABLET PO SCH (09:20)
[2019-09-20] MEDS: AMLODIPINE BESYLATE 5 MG TABLET PO SCH (09:20)
[2019-09-20] MEDS: APIXABAN 2.5 MG TABLET PO SCH ×2 (09:21→17:16)
--- NOTE | 2019-09-20 09:34 | NUR ---
CHAIR NOTE SEEN BY .ABG DONE.RESULT RELAYED TO .OFF BIPAP AFTER DIALYSIS.MADE AWARE THAT PATIENT REALLY AGITATED.YELLING OUT .HITTING AND SCRATCHING.NO ATIVAN AT THIS TIME.WILL CONTINUE TO MONITOR.
[2019-09-20] MEDS: INSULIN REGULAR, HUMAN 100 UNIT/ML 3 ML VIAL SQ PRN ×2 (13:24→23:15)
[2019-09-20] MEDS: CEFEPIME 1 GM in IV D5W 50 ML IV SCH (17:14)
--- NOTE | 2019-09-20 17:26 | NUR ---
ABRASIVE GRINDER NOTE NOT ADMINISTERED INSULIN REGULAR COVERAGE @1200,1730BECAUSE OF PATIENT REFUSED TO EAT.
--- NOTE | 2019-09-20 19:30 | NUR ---
POWER AND RECOVERY SHIFT ENGINEER PT CURRENTLY HAVING HD. CONTINUE TO MONITOR.
--- NOTE | 2019-09-20 19:33 | NUR ---
DAY HAUL OR FARM CHARTER BUS DRIVER NOTE PATINE AXOX2. WITH BIPAP .ONGOING HD.DIALYSIS NURSE AT BED SIDE.OK TO GIVE HYDRALAZINE IV 25MG Q6H PRN FOR SBP>160 PER CLINICAL SAFETY MANAGER DEMIAN.ENDORSED TO PM NURSE FOR KASSY.
--- NOTE | 2019-09-20 20:00 | NUR ---
WELDER FITTER GAS HD COMPLETE; TOLERATED WELL 2700 OUTPUT. WILL ADMINISTER VANCOMYCIN ACCORDINGLY.
--- NOTE | 2019-09-20 20:00 | NUR ---
ACCOUNT SUPPORT MANAGER SON AT BEDSIDE; STATES TAKE OFF BIPAP. EDUCATED ON NEED FOR BIPAP; SON REQUIRES REINFORCEMENT ON PLAN OF CARE.
--- NOTE | 2019-09-20 20:35 | NUR ---
PT WANTED TO EAT, TAKEN OFF BIPAP AND PLACED ON 4L NC. RN NOTIFIED. SON AT BEDSIDE.
--- NOTE | 2019-09-20 20:35 | NUR ---
LAWN CARE SPECIALIST REMOVED BIPAP AND PLACED ON O2 4L NC SO THAT SON MAY FEED PT. CONTINUE TO MONITOR.
[2019-09-20] MEDS: LORAZEPAM INJ 2 MG/ML VIAL IV PRN (22:02)
--- NOTE | 2019-09-20 22:15 | NUR ---
MEDICAL PATHOLOGY TEACHER PT NOTED TO VERY AGITATED; DESPITE BEING ON BLSW RESTRAINTS PT CONTINUES TO REMOVE BIPAP AND NOTED BECOMING SOB. REINFORCED THE NEED TO KEEP BIPAP ON. ADMINISTERED ATIVAN 1 MG IVP PER ORDER. CONTINUE TO MONITOR.
--- NOTE | 2019-09-20 22:21 | NUR ---
PT PLACED BACK ON BIPAP. RN NOTIFIED.
[2019-09-21] VITALS (28 sets, daily range): BP systolic 94–197; BP diastolic 36–111
[2019-09-21] MEDS: ALBUTEROL HALF STRENGTH 1.25 MG/3 ML VIAL.NEB NEB SCH ×6 (03:29→23:44)
[2019-09-21 04:23] LABS: BASOPHILS % (AUTO) 0.5 % (0.0-2.0); HEMATOCRIT 35 % (33-45); HEMOGLOBIN 11.4 g/dL (11.5-14.8); LYMPHOCYTES # (AUTO) 0.2 /CMM (0.8-4.8); LYMPHOCYTES % (AUTO) 2.7 % (20.0-44.0); MEAN CORPUSCULAR HGB CONC 33 g/dl (31.0-36.0); MEAN CORPUSCULAR VOLUME 96 fL (82-100); MONOCYTES # (AUTO) 0.4 /CMM (0.1-1.30); MONOCYTES % (AUTO) 5.6 % (2.0-12.0); NEUTROPHILS # (AUTO) 6.1 /CMM (1.8-8.9); NEUTROPHILS % (AUTO) 91.2 % (43.0-81.0); PLATELET COUNT (AUTO) 272 /CMM (150-450); RED BLOOD CELL COUNT(AUTO) 3.67 MIL/uL (4.0-5.2); WHITE BLOOD COUNT (AUTO) 6.7 K/uL (4.3-11.0)
[2019-09-21 04:41] LABS: CALCIUM, SERUM 10.7 mg/dL (8.5-10.1); CARBON DIOXIDE 27 mmol/L (21-32); CHLORIDE 105 mmol/L (98-107); CREATININE 3.8 mg/dL (0.6-1.3); GLUCOSE 140 mg/dL (74-106); MAGNESIUM 2.5 mg/dL (1.8-2.4); PHOSPHORUS 4.8 mg/dL (2.5-4.9); POTASSIUM 4.7 mmol/L (3.5-5.1); SODIUM SERUM 141 mmol/L (136-145); UREA NITROGEN, BLOOD 45 mg/dL (7-18)
--- NOTE | 2019-09-21 06:41 | NUR ---
AUTOMATED MANUFACTURING INSTRUCTOR PT CONTINUED TO BE RESTLESS WITH FREQUENT REMOVING OF BIPAP AND PULLING OF NECESSARY MEDICAL DEVICES. BLSW RESTRAINTS REMAINED ON. CONTINUE TO MONITOR. REINFORCE NEED FOR BIPAP.
--- NOTE | 2019-09-21 08:00 | NUR ---
ICU/RN AM SHIFT INITIAL NOTES RECEIVED PT AWAKE IN BED, PT A/O X 2-3 BUT CONFUSED, ON BI-PAP 20/5, FIO2 40%, RATE 12. RESPIRATIONS EVEN & UNLABORED, DIMINISHED LUNG SOUNDS, SATURATING @ 93. ON TELE WITH CONTROLLED A-FIB, HR 87. FEMORAL HD CATHETER INTACT, IMMATURE FISTULA ON THE RIGHT ARM POSITIVE OF THRILL & BRUIT AND LEFT UPPER ARM MIDLINE, PATENT WITH NO S/S OF INFECTION. BILATERAL SOFT WRIST IN PLACED, REMOVED TO CHECK FOR CIRCULATION AND COMFORT THEN PLACED BACK. PT IS COMFORTABLE, SCHEDULED AM MEDS TO BE GIVEN. CL WITHIN REACHED AND SAFETY MAINTAINED. ON GOING MONITORING.
[2019-09-21] MEDS: BLOOD SUGAR DIAGNOSTIC 1 EACH STRIP IN SCH ×4 (08:18→22:37)
[2019-09-21] MEDS: methylPREDNISolone SOD SUCC 125 MG/2ML VIAL IV SCH ×3 (08:25→18:25)
[2019-09-21] MEDS: ATORVASTATIN 40 MG TABLET PO SCH (08:26)
[2019-09-21] MEDS: AMLODIPINE BESYLATE 5 MG TABLET PO SCH (08:27)
[2019-09-21] MEDS: FUROSEMIDE 40 MG TABLET PO SCH (08:27)
[2019-09-21] MEDS: APIXABAN 2.5 MG TABLET PO SCH ×2 (08:28→16:31)
[2019-09-21] MEDS: INSULIN REGULAR, HUMAN 100 UNIT/ML 3 ML VIAL SQ PRN ×4 (08:30→22:39)
--- NOTE | 2019-09-21 08:42 | NUR ---
WOUND CARE CONSULT: PT PRESENTS WITH DISCOLORATION/RASH TO BREASTFOLDS AND ABDOMINAL FOLDS, PRESENT ON ADMISSION. PT IS INCONTINENT. RECOMMENDATIONS MADE FOR SKIN PROTECTION. DISCUSSED WITH NURSING STAFF. CURRENT JENNIFER SCORE IS 15. WILL SEE PRNYasmani BUNDY IN AGREEMENT WITH PLAN OF CARE.
--- NOTE | 2019-09-21 08:50 | NUR ---
ICU/RN ROUNDS - DR. MIRANDA PT SEEN & EXAMINED BY DR. MIRANDA. PT WAS ON BREATHING TX. VERBAL ORDER RECEIVED FOR ABS AFTER 1 HOUR, ORDER NOTED AND CARRIED. MONITORING CONTINUED.
--- NOTE | 2019-09-21 09:15 | NUR ---
ICU/RN ROUNDS - DR. VÁSQUEZ UPDATED PT'S CONDITION. PT SEEN & EXAMINED BY DR. VÁSQUEZ. NO NEW ORDER RECEIVED AT THIS TIME. MONITORING CONTINUED.
--- NOTE | 2019-09-21 10:35 | NUR ---
PATIENT ON ELOQUIS, INFORMED RN TO HOLD ELOQUIS TODAY AND TOMORROW MORNING, AND IN ORDER FOR PROCEDURE TO BE DONE TOMORROW, MD MIRANDA NEEDS TO MAKE A NOTE THAT ID BENEFICIAL FOR THE PATIENT TO DO THE THORA
[2019-09-21 10:52] LABS: ABG BASE EXCESS -1.5 mmol/L; ABG OXYGEN SATURATION 91.7 % (92.0-98.5); ABG PCO2 44.6 mmHg (35.0-45.0); ABG PH 7.353 (7.350-7.450); ABG PO2 68.3 mmHg (75.0-100.0); AaDO2 78.7 mmHg; COHb 0.5 % (0.5-1.5); MetHb 0.3 % (0.0-1.5); SITE, ABG Right Radial
[2019-09-21] MEDS: CLOTRIMAZOLE 1% 15 GM TUBE TP SCH ×2 (11:12→17:13)
--- NOTE | 2019-09-21 11:37 | NUR ---
ICU/RN CONSENT - RIGHT LUNG THORACENTESIS CONSENT FOR THE THORACENTESIS OBTAINED VIA TELEPHONE CONSENT FROM PT'S SON. CONSENT FORM FILED IN THE CHART.
[2019-09-21] MEDS: hydrALAZINE HCL IV 20 MG VIAL IV PRN (12:31)
[2019-09-21] MEDS: LORAZEPAM INJ 2 MG/ML VIAL IV PRN ×2 (12:47→21:18)
--- NOTE | 2019-09-21 16:00 | NUR ---
ICU/FOREIGN LANGUAGE INTERPRETER DIALYSIS TREATMENT INITIATED. ON GOING MONITORING.
--- NOTE | 2019-09-21 16:31 | NUR ---
ICU/RN ELIQUIS - HELD SCHEDULED PM ELIQUIS HELD D/T PROCEDURE (RIGHT LUNG THORACENTESIS) TOMORROW.
--- NOTE | 2019-09-21 17:10 | NUR ---
ICU/RN PM MEDS PT STILL ON DIALYSIS, SCHEDULED PM MEDS WILL BE ADMINISTERED AFTER TREATMENT. NO ADVERSE CHANGE OF CONDITION. MONITORING CONTINUED.
--- NOTE | 2019-09-21 17:26 | NUR ---
ICU/RN DARSHANA POST HD - HELD NOTIFIED PHARMACY THAT PRN VANCO POST HD WILL NOT BE ADMINISTERED D/T HIGH LEVEL (23).
--- NOTE | 2019-09-21 17:34 | NUR ---
ICU/RN SKIN PHOTO PT STILL ON DIALYSIS, UNABLE TO TAKE PHOTO OF SKIN ISSUES, WILL ENDORSED TO PM NURSE.
[2019-09-21] MEDS: CEFEPIME 1 GM in IV D5W 50 ML IV SCH (18:25)
--- NOTE | 2019-09-21 19:28 | NUR ---
ICU/RN AM SHIFT END NOTES ALL NEEDS MET. NO ACUTE CHANGE OF CONDITION DURING THE SHIFT. PT ENDORSED TO PM NURSE TO CONTINUE CARE. CL WITHIN REACHED AND SAFETY MAINTAINED.
--- NOTE | 2019-09-21 19:45 | NUR ---
ICU/ARC CUTTER RECEIVED REPORT FROM DAY SHIFT NURSE. SEE FLOWSHEET FOR ASSESSMENT. THERE ARE A FEW SKIN ISSUES THAT ARE ADDRESSED, ALONG WITH THE INTERVENTIONS TO EACH. PT IS ALERT X2. PT HAS BIPAP, TOLERATING CURRENT SETTINGS WITH SATURATION AT 100%. PT WAS TURNED AND REPOSITIONED FOR COMFORT AND CARE, WILL CONTINUE TO MONITOR THIS PT.
--- NOTE | 2019-09-21 20:00 | NUR ---
RCVD PT ON BIPAP 20/5, RATE 4, FIO2 40% . PT IS AWAKE AND ALERT. BREATHING TX GIVEN PER MD'S ORDER. NO ADVERSE REACTION NOTED . BIPAP PLUGGED INTO RED OUTLET, ALARMS ON AND AUDIBLE. NO RESPIRATORY DISTRESS NOTED AT THIS TIME. WILL CONTINUE TO MONITOR THE PT T/O SHIFT.
--- NOTE | 2019-09-21 21:15 | NUR ---
ICU/BARREL HEADER PT APPEARS TO BE VERY RESTLESS AND AGITATED. ATIVAN 1 MG WAS GIVEN BY CHARGE NURSE WHO WAS NOTIFIED ABOUT PT'S BEHAVIOR. WILL CONTINUE TO MONITOR THIS PT AND HER AGITATION.
--- NOTE | 2019-09-21 22:00 | NUR ---
ICU/BOAT DETAILER PT WAS TURNED AND REPOSITIONED FOR COMFORT AND CARE. WILL CONTINUE TO MONITOR THIS PT. NO ACUTE DISTRESS SEEN AT THIS TIME.
[2019-09-22] VITALS (27 sets, daily range): BP systolic 100–175; BP diastolic 43–104
--- NOTE | 2019-09-22 02:00 | NUR ---
ICU/FAMILY ADVOCATE PT WAS GIVEN AM CARE, ALONG WITH ORAL CARE.PT REMAINS ON CURRENT BIPAP SETTINGS WITH SATURATION AT 100% PT WAS TURNED AND REPOSITIONED FOR COMFORT AND CARE. NO ACUTE DISTRESS SEEN AT THIS TIME.
[2019-09-22] MEDS: LORAZEPAM INJ 2 MG/ML VIAL IV PRN (02:59)
[2019-09-22] MEDS: ALBUTEROL HALF STRENGTH 1.25 MG/3 ML VIAL.NEB NEB SCH ×6 (03:02→23:38)
[2019-09-22] MEDS: APIXABAN 2.5 MG TABLET PO SCH (03:10)
--- NOTE | 2019-09-22 03:18 | NUR ---
ICU/FAST FOOD FRY COOK PT APPEARS TO BE VERY RESTLESS AND AGITATED. ATIVAN 1 MG WAS GIVEN BY CHARGE NURSE WHO WAS NOTIFIED ABOUT PT'S BEHAVIOR. WILL CONTINUE TO MONITOR THIS PT AND HER AGITATION
[2019-09-22 04:59] LABS: BASOPHILS % (AUTO) 0.2 % (0.0-2.0); HEMATOCRIT 35 % (33-45); HEMOGLOBIN 11.8 g/dL (11.5-14.8); LYMPHOCYTES # (AUTO) 0.1 /CMM (0.8-4.8); LYMPHOCYTES % (AUTO) 2.3 % (20.0-44.0); MEAN CORPUSCULAR HGB CONC 34 g/dl (31.0-36.0); MEAN CORPUSCULAR VOLUME 99 fL (82-100); MONOCYTES # (AUTO) 0.3 /CMM (0.1-1.30); MONOCYTES % (AUTO) 4.2 % (2.0-12.0); NEUTROPHILS # (AUTO) 5.8 /CMM (1.8-8.9); NEUTROPHILS % (AUTO) 93.3 % (43.0-81.0); PLATELET COUNT (AUTO) 271 /CMM (150-450); RED BLOOD CELL COUNT(AUTO) 3.51 MIL/uL (4.0-5.2); WHITE BLOOD COUNT (AUTO) 6.2 K/uL (4.3-11.0)
[2019-09-22 05:01] LABS: CALCIUM, SERUM 10.8 mg/dL (8.5-10.1); CARBON DIOXIDE 29 mmol/L (21-32); CHLORIDE 103 mmol/L (98-107); CREATININE 3.4 mg/dL (0.6-1.3); GLUCOSE 137 mg/dL (74-106); MAGNESIUM 2.3 mg/dL (1.8-2.4); PHOSPHORUS 4.6 mg/dL (2.5-4.9); POTASSIUM 4.6 mmol/L (3.5-5.1); SODIUM SERUM 142 mmol/L (136-145); UREA NITROGEN, BLOOD 45 mg/dL (7-18)
[2019-09-22] MEDS: hydrALAZINE HCL IV 20 MG VIAL IV PRN (05:09)
--- NOTE | 2019-09-22 05:18 | NUR ---
ICU/HOSPITAL HOUSEKEEPER HYDRALAZINE 25MG GIVEN IVP FOR BLOOD PRESSURE 164/58, BY CHARGE NURSE. WILL CONTINUE TO MONITOR THIS PT AND HER ELEVATED BLOOD PRESSURE.
--- NOTE | 2019-09-22 05:52 | NUR ---
TAKEN OFF BIPAP AT THIS TIME. PLACED PT ON 3L NC . SPO2 OF 97%
--- NOTE | 2019-09-22 06:12 | NUR ---
ICU/FIELD ADJUSTER BIPAP WAS TAKEN OFF BY RT, PT CURRENTLY ON 3 LITERS VIA N/C. WILL CONTINUE TO MONITOR THIS PT'S SATURATION.
--- NOTE | 2019-09-22 07:30 | NUR ---
LOWER IN SUPERVISOR AM NOTES RECEIVED PT ASLEEP, LETHARGIC, UNABLE TO OPEN EYES, PER AIR TUCKER WAS GIVEN ATIVAN AT 0300. PT A/O BUT CONFUSED, ON 3L O2 NASAL CANULA, RESPIRATIONS EVEN & UNLABORED, DIMINISHED LUNG SOUNDS, SATURATING @ 96. ON TELE WITH CONTROLLED A-FIB, HR 85. FEMORAL HD CATHETER INTACT, IMMATURE FISTULA ON THE RIGHT ARM POSITIVE OF THRILL & BRUIT AND LEFT UPPER ARM MIDLINE, PATENT WITH NO S/S OF INFECTION. BILATERAL SOFT WRIST IN PLACED, REMOVED TO CHECK FOR CIRCULATION AND COMFORT THEN PLACED BACK. PT IS COMFORTABLE, SCHEDULED AM MEDS TO BE GIVEN. CL WITHIN REACHED AND SAFETY MAINTAINED. WILL MONITOR.
[2019-09-22] MEDS: BLOOD SUGAR DIAGNOSTIC 1 EACH STRIP IN SCH ×4 (08:07→22:51)
[2019-09-22 08:36] LABS: ABG BASE EXCESS -0.4 mmol/L; ABG OXYGEN SATURATION 91.4 % (92.0-98.5); ABG PCO2 39.3 mmHg (35.0-45.0); ABG PH 7.407 (7.350-7.450); ABG PO2 64.5 mmHg (75.0-100.0); AaDO2 88.8 mmHg; COHb 0.4 % (0.5-1.5); MetHb 0.3 % (0.0-1.5); O2Hb 90.8 % (94.0-97.0); SITE, ABG Left Radial; VENT MODE, BG NC 2L
[2019-09-22] MEDS: methylPREDNISolone SOD SUCC 125 MG/2ML VIAL IV SCH ×3 (09:15→17:25)
[2019-09-22] MEDS: AMLODIPINE BESYLATE 5 MG TABLET PO SCH (09:17)
[2019-09-22] MEDS: FUROSEMIDE 40 MG TABLET PO SCH (09:17)
[2019-09-22] MEDS: ATORVASTATIN 40 MG TABLET PO SCH (09:17)
[2019-09-22] MEDS: CLOTRIMAZOLE 1% 15 GM TUBE TP SCH ×2 (09:18→17:25)
--- NOTE | 2019-09-22 09:30 | NUR ---
RN NOTES DUE MEDS GIVEN PER JAMESON BURGESS PT FOR PSYCH CONSULT. DR. MIRANDA DISCONTINUED ATIVAN
--- NOTE | 2019-09-22 09:50 | NUR ---
ELOQUIS WILL BE ON HOLD FOR ANOTHER 3 DAYS 72 HOURS PER MD MIRANDA, PROCEDURE TO BE DONE ON THURSDAY . PLEASE FOLLOW UP WITH RN ON THURSDAY,
--- NOTE | 2019-09-22 09:52 | NUR ---
RN NOTES PATIENT FOR ULTRASOUND GUIDED THORACENTESIS PER RADIOLOGIST MD, NEEDS TO HOLD ELIQUIS FOR [address] MIRANDA NOTIFIED AND AWARE.
[2019-09-22] MEDS: INSULIN REGULAR, HUMAN 100 UNIT/ML 3 ML VIAL SQ PRN ×3 (12:14→22:55)
[2019-09-22] MEDS: CEFEPIME 1 GM in IV D5W 50 ML IV SCH (17:25)
--- NOTE | 2019-09-22 19:00 | NUR ---
RN NOTES PT RESTING, AWAKE, ASKING WATER FROM TIME TO TIME, POSSIBLE US GUIDED THORACENTESIS SET ON THURSDAY. PER DR. MIRANDA HOLD ELIQUIS FOR 72 HOURS MORE. POOR ORAL INTAKE. PM CARE DONE, HOB ELEVATED, TURNED AND REPOSITIONED Q 2 HOURS, RESTRAINTS RELEASED AND CHECKED FOR CIRCULATION Q 2HOURS, ASPIRATION PRECAUTION OBSERVED, ALL NEEDS MET AT THIS TIME. CALL LIGHT WITHIN REACH. SAFETY MEASURES IN PLACE. ENDORSED TO NEXT SHIFT FOR KASSY. AWAITING PSYCH CONSULT. FACESHEET FAXED TO [facility].
[2019-09-23] VITALS (22 sets, daily range): BP systolic 97–171; BP diastolic 40–100
[2019-09-23] MEDS: hydrALAZINE HCL IV 20 MG VIAL IV PRN (02:55)
[2019-09-23] MEDS: ALBUTEROL HALF STRENGTH 1.25 MG/3 ML VIAL.NEB NEB SCH ×6 (03:25→23:45)
[2019-09-23 04:48] LABS: BASOPHILS % (AUTO) 0.1 % (0.0-2.0); HEMATOCRIT 39 % (33-45); HEMOGLOBIN 12.5 g/dL (11.5-14.8); LYMPHOCYTES # (AUTO) 0.3 /CMM (0.8-4.8); LYMPHOCYTES % (AUTO) 3.6 % (20.0-44.0); MEAN CORPUSCULAR HGB CONC 32 g/dl (31.0-36.0); MEAN CORPUSCULAR VOLUME 97 fL (82-100); MONOCYTES # (AUTO) 0.4 /CMM (0.1-1.30); MONOCYTES % (AUTO) 5.4 % (2.0-12.0); NEUTROPHILS # (AUTO) 6.3 /CMM (1.8-8.9); NEUTROPHILS % (AUTO) 90.9 % (43.0-81.0); PLATELET COUNT (AUTO) 322 /CMM (150-450); RED BLOOD CELL COUNT(AUTO) 3.99 MIL/uL (4.0-5.2)
[2019-09-23 04:54] LABS: CALCIUM, SERUM 10.9 mg/dL (8.5-10.1); CARBON DIOXIDE 26 mmol/L (21-32); CHLORIDE 103 mmol/L (98-107); CREATININE 4.3 mg/dL (0.6-1.3); GLUCOSE 171 mg/dL (74-106); POTASSIUM 4.7 mmol/L (3.5-5.1); SODIUM SERUM 141 mmol/L (136-145); UREA NITROGEN, BLOOD 72 mg/dL (7-18)
[2019-09-23] MEDS: BLOOD SUGAR DIAGNOSTIC 1 EACH STRIP IN SCH ×4 (07:02→21:49)
--- NOTE | 2019-09-23 07:03 | NUR ---
PATIENT REMAINS IN NO ACUTE DISTRESS IN BED. PATIENT DID NOT HAVE ANY SIGNIFICANT CHANGE IN CONDITION DURING SHIFT. PATIENT TOLERATING VENT SETTING WELL. ALL NEEDS MET, ALL ORDERS CARRIED OUT. WILL ENDORSE CARE TO AM RN FOR CONTINUITY OF CARE.
--- NOTE | 2019-09-23 07:59 | NUR ---
RN OPENING NOTES RECEIVED PATIENT AWAKE AND ON DIALYSIS. SHE IS AOX3, VERBAL, AND ON BEDREST. SHE IS ON 3L OF OXYGEN VIA NC, TOLERATING WELL, O2 SAT AT 98%. CHEST RISES AND FALLS EVENLY, LUNG SOUNDS DIMINISHED. TELE MONITOR SHOWING A-FIB, HR AT 100 BPM. LEFT ARM MIDLINE IS PATENT AND INTACT, LEFT FEMORAL HD CATH IS PATENT AND INTACT, R ARM FISTULA IS INTACT, POSITIVE FOR BRUIT AND THRILL. SKIN IS INTACT, ABDOMINAL FOLD REDNESS. BILATERAL WRIST RESTRAINTS ARE INTACT, WILL REMOVE PER PROTOCOL TO CHECK FOR CIRCULATION AND SKIN BREAKDOWN. SAFETY MEASURES HAVE BEEN IMPLEMENTED, CALL LIGHT IS WITHIN REACH, BED IS IN LOWEST AND LOCKED POSITION, SIDE RAILS UP X2, WILL CONTINUE TO MONITOR FOR ANY CHANGES.
[2019-09-23] MEDS: AMLODIPINE BESYLATE 5 MG TABLET PO SCH (09:00)
[2019-09-23] MEDS: methylPREDNISolone SOD SUCC 125 MG/2ML VIAL IV SCH ×3 (09:35→17:09)
[2019-09-23] MEDS: FUROSEMIDE 40 MG TABLET PO SCH (09:35)
[2019-09-23] MEDS: ATORVASTATIN 40 MG TABLET PO SCH (09:37)
[2019-09-23] MEDS: CLOTRIMAZOLE 1% 15 GM TUBE TP SCH ×2 (09:57→17:11)
[2019-09-23] MEDS: INSULIN REGULAR, HUMAN 100 UNIT/ML 3 ML VIAL SQ PRN ×3 (12:58→21:50)
--- NOTE | 2019-09-23 16:50 | NUR ---
PT HAS BEEN TRANSFERRED TO ROOM 114-2 FOR CONTINUITY OF CARE, REPORT GIVEN TO RAGINI BALES
--- NOTE | 2019-09-23 16:54 | NUR ---
PATIENT RECIEVED FROM ICU [facility] BED FOR FURTHER CARE, FIXED IN BED AND MADE COMFORTABLE. Addendum: 09/23/19 at 1929 by RAGINI TORIBIO RN RECEIVED PATIENT OFF RESTRAINTS AND NO BEHAVIOR NOTED ON PULLING ON DEVICES. SOFT WRIST RESTRAINTS NOT APPLIED BACK. REPORT GIVEN TO THE BATH SOLUTION MAKER RN TO OBSERVE THE PATIENT AND THE NEEDS FOR CONTINUED SOFT WRIST RESTRAINTS,DIET SERVE AND ASSISTED WITH FOOD, ATE 20 % OF THE FOOD SERVED, NOTED PATIENT HAS NO RECORDED BM SINCE ADMISSION BATH SOLUTION MAKER RN INFORMED
--- NOTE | 2019-09-23 19:25 | NUR ---
VIKKI/RN notes, Patient received in bed, awake, A/O x2, Lebanese speaking, In no acute distress, breathing even and unlabored, No SOB noted, Patient on O2 4LPM via NC, saturation 98%, HOB elevated to Semi amado position, Denies any pain at this time, Per track mechanic nurse patient had no BM since admission, asked patient said, she had one yesterday, ABD soft non-distended with Bowel sounds present x4 Quadrants, On tele monitoring with A-fib rate 92, Safety maintained, bed at the lowest locked position, Off restraint, will monitor, Call light within reach. Will continue to monitor as per plan of care.
--- NOTE | 2019-09-23 20:00 | NUR ---
Head to Toe assessment done, patient noted with Bruises on left arm and sacral redness, continue to monitor, turn and reposition,
[2019-09-24] VITALS (7 sets, daily range): BP systolic 101–164; BP diastolic 54–88
[2019-09-24] MEDS: LORAZEPAM INJ 2 MG/ML VIAL IV PRN ×2 (02:40→23:32)
[2019-09-24] MEDS: ALBUTEROL HALF STRENGTH 1.25 MG/3 ML VIAL.NEB NEB SCH ×6 (03:06→19:34)
--- NOTE | 2019-09-24 06:49 | NUR ---
VIKKI/RN notes, Patient remained in bed, awake, A/O to her base line, In no acute distress, breathing even and unlabored, No SOB noted, Patient on O2 4LPM via NC, saturation 98%, HOB elevated, Denies any pain at this time, On tele monitoring with A-fib rate 92, Safety maintained, bed at the lowest locked position, due meds given as ordered, No BM in this shift, Will endorse to AM shift nurse for KASSY.
[2019-09-24 07:25] LABS: BASOPHILS % (AUTO) 0.1 % (0.0-2.0); HEMATOCRIT 38 % (33-45); HEMOGLOBIN 12.4 g/dL (11.5-14.8); LYMPHOCYTES # (AUTO) 0.2 /CMM (0.8-4.8); LYMPHOCYTES % (AUTO) 3.2 % (20.0-44.0); MEAN CORPUSCULAR HGB CONC 33 g/dl (31.0-36.0); MEAN CORPUSCULAR VOLUME 96 fL (82-100); MONOCYTES # (AUTO) 0.5 /CMM (0.1-1.30); MONOCYTES % (AUTO) 7.4 % (2.0-12.0); NEUTROPHILS # (AUTO) 6.1 /CMM (1.8-8.9); NEUTROPHILS % (AUTO) 89.3 % (43.0-81.0); PLATELET COUNT (AUTO) 220 /CMM (150-450); RED BLOOD CELL COUNT(AUTO) 3.97 MIL/uL (4.0-5.2); WHITE BLOOD COUNT (AUTO) 6.8 K/uL (4.3-11.0)
--- NOTE | 2019-09-24 07:50 | NUR ---
VIKKI RN OPENING NOTES RECEIVED REPORT FROM PM NURSE.PATIENT AWAKE . AXOX2 AMERICAN SPEAKING. ON 4L OF OXYGEN VIA NC. TOLERATING WELL.NO SOB NO DISTRESS NOTED. ON TELE MONITOR A-FIB CONTROLLED, HR 90-96B/M. LEFT UPPER ARM MIDLINE IS PATENT AND INTACT. LEFT FEMORAL HD CATH DRESSING IS INTACT. R UPPER ARM FISTULA POSITIVE FOR BRUIT AND THRILL. BED IS LOW AND IN LOCKED POSITION.CALL LIGHT IN REACH.BED ALARM ON.SRX3.WILL CONTINUE TO MONITOR.
[2019-09-24 07:53] LABS: CALCIUM, SERUM 10.5 mg/dL (8.5-10.1); CARBON DIOXIDE 25 mmol/L (21-32); CHLORIDE 101 mmol/L (98-107); CREATININE 3.9 mg/dL (0.6-1.3); GLUCOSE 181 mg/dL (74-106); POTASSIUM 4.4 mmol/L (3.5-5.1); SODIUM SERUM 142 mmol/L (136-145); UREA NITROGEN, BLOOD 70 mg/dL (7-18)
[2019-09-24] MEDS: BLOOD SUGAR DIAGNOSTIC 1 EACH STRIP IN SCH ×4 (07:58→21:41)
[2019-09-24] MEDS: AMLODIPINE BESYLATE 5 MG TABLET PO SCH (08:31)
[2019-09-24] MEDS: methylPREDNISolone SOD SUCC 125 MG/2ML VIAL IV SCH ×3 (08:31→16:20)
[2019-09-24] MEDS: ATORVASTATIN 40 MG TABLET PO SCH (08:31)
[2019-09-24] MEDS: FUROSEMIDE 40 MG TABLET PO SCH (08:31)
[2019-09-24] MEDS: CLOTRIMAZOLE 1% 15 GM TUBE TP SCH ×2 (08:32→16:20)
[2019-09-24] MEDS: INSULIN REGULAR, HUMAN 100 UNIT/ML 3 ML VIAL SQ PRN ×4 (08:34→21:43)
--- NOTE | 2019-09-24 09:00 | NUR ---
VIKKI RN NOTE SEEN BY TENA NOVAK.UPDATED ABOUT PATENT CONDITION WITH LABS.PATIENT AGITATED .REMOVING ALL LINES AND TELE BOX.REMOVING GOWN.GOT ORDER FOR BILATERAL SOFT RESTRAINTS.WILL CONTINUE TO MONITOR.
--- NOTE | 2019-09-24 19:18 | NUR ---
VETERANS' COUNSELOR CLOSING NOTES PATIENT IN BED.AWAKE . AXOX2 IRANIAN SPEAKING. ON 4L OF OXYGEN VIA NC. TOLERATING WELL.NO SOB NO DISTRESS NOTED. ON TELE MONITOR A-FIB CONTROLLED, HR 90-96B/M. LEFT UPPER ARM MIDLINE IS PATENT AND INTACT. LEFT FEMORAL HD CATH DRESSING IS INTACT. R UPPER ARM FISTULA POSITIVE FOR BRUIT AND THRILL. BED IS LOW AND IN LOCKED POSITION.CALL LIGHT IN REACH.BED ALARM ON.SRX3.ON BILATERAL SOFT RESTRAINTS.SAFETY AND VISUAL CHECK DONE.SKIN IS INTACT.ENDORSED TO PM NURSE FOR KASSY.
--- NOTE | 2019-09-24 20:38 | NUR ---
RN NOTES PATIENT IS ALERT AND ORIENTED X2, ON 4LPM VIA NC, SPO2 98%, RESTLESS, YELLING, BILATERAL WRISTS RESTRAINTS DUE TO PULLING IV LINE AND TELE BOX, TRYING TO GET OUT OF BED, NO SKIN BREAKDOWN TO ROBINSON WRISTS, WILL CONTINUE TO MONITOR FOR SAFETY
[2019-09-25] MEDS: ALBUTEROL HALF STRENGTH 1.25 MG/3 ML VIAL.NEB NEB SCH ×7 (00:04→23:24)
[2019-09-25 00:28] VITALS: BP 120/85
[2019-09-25 04:16] VITALS: BP 131/85
--- NOTE | 2019-09-25 06:20 | NUR ---
RN NOTES PATIENT ALERT, AWAKE, CONFUSED, RESTLESS, SCREAMING, SLEPT 2HRS, ON 4LPM VIA NC WITH SPO2 OF 93%, GIVEN ATIVAN 1 MG IVPB X1 WITH NO RELIEF FROM ANXIETY. BILATERAL WRIST RESTRAINTS IN PLACE DUE TO DISRUPTION OF TREATMENT, PATIENT PULLING OUT TELE MONITOR LEADS, IV LINE, POOR APPETITE, REFUSING TO DRINK, FOR THORACENTESIS TODAY, CONSENT SIGNED.
--- NOTE | 2019-09-25 07:10 | NUR ---
OUTSIDE EVENT SALES SPECIALIST OPENING NOTE: RECEIVED PATIENT IN BED. AWAKE AND RESPONSIVE. ON ACUTE MEDICAL RESTRAINTS DUE TO BEHAVIOR IDENTIFIED AND PULLING OUT OF LINES STILL APPARENT. ON CONT. O2 VIA NC @3LPM TOLERATING WELL.NO SOB NOTED AND NOT IN ACUTE DISTRESS. HD FEMORAL CATHETER LOCATED AT LEFT THIGH, SITE CLEAN, SECURE. WITH IV MIDLINE SITE RIGOBERTO. SITE PATENT, CLEAN AND DRY. NO PAIN NOTED. ON CARDIAC MONITORING WITH CONTROLLED ATRIAL FIBRILLATION NOTED. CALL LIGHT IN REACH, SIDE RAILS UP, LOCKED, LOW AND AT SEMI-ROJAS'S POSITION. WILL CONTINUE TO MONITOR.
[2019-09-25 07:18] LABS: BASOPHILS # (AUTO) 0.1 /CMM (0.0-0.2); BASOPHILS % (AUTO) 0.7 % (0.0-2.0); HEMATOCRIT 40 % (33-45); HEMOGLOBIN 13.1 g/dL (11.5-14.8); LYMPHOCYTES # (AUTO) 0.3 /CMM (0.8-4.8); LYMPHOCYTES % (AUTO) 3.5 % (20.0-44.0); MEAN CORPUSCULAR HGB CONC 33 g/dl (31.0-36.0); MEAN CORPUSCULAR VOLUME 97 fL (82-100); MONOCYTES # (AUTO) 0.4 /CMM (0.1-1.30); MONOCYTES % (AUTO) 5.3 % (2.0-12.0); NEUTROPHILS # (AUTO) 6.6 /CMM (1.8-8.9); NEUTROPHILS % (AUTO) 90.5 % (43.0-81.0); PLATELET COUNT (AUTO) 219 /CMM (150-450); RED BLOOD CELL COUNT(AUTO) 4.09 MIL/uL (4.0-5.2); WHITE BLOOD COUNT (AUTO) 7.3 K/uL (4.3-11.0)
[2019-09-25 07:24] LABS: CALCIUM, SERUM 10.8 mg/dL (8.5-10.1); CARBON DIOXIDE 25 mmol/L (21-32); CHLORIDE 100 mmol/L (98-107); CREATININE 4.7 mg/dL (0.6-1.3); GLUCOSE 190 mg/dL (74-106); POTASSIUM 4.6 mmol/L (3.5-5.1); SODIUM SERUM 139 mmol/L (136-145)
[2019-09-25] MEDS: BLOOD SUGAR DIAGNOSTIC 1 EACH STRIP IN SCH ×4 (07:30→21:52)
[2019-09-25 07:36] LABS: UREA NITROGEN, BLOOD 100 mg/dL (7-18)
--- NOTE | 2019-09-25 07:45 | NUR ---
DERMATOLOGY SALES REPRESENTATIVE NOTE: PATIENT REFUSED INSULIN DOSE.
[2019-09-25 08:00] VITALS: BP 110/62
--- NOTE | 2019-09-25 08:15 | NUR ---
ASSISTANT IMPORT MANAGER NOTE: PATIENT WAS SEEN BY SCARLET BURGESS NP AND IS AWARE OF BUN LEVEL OF 100. PATIENT IS SCHEDULED FOR DIALYSIS TODAY
[2019-09-25] MEDS: INSULIN REGULAR, HUMAN 100 UNIT/ML 3 ML VIAL SQ PRN ×4 (08:33→21:54)
[2019-09-25] MEDS: ATORVASTATIN 40 MG TABLET PO SCH (09:00)
[2019-09-25] MEDS: AMLODIPINE BESYLATE 5 MG TABLET PO SCH (09:00)
[2019-09-25] MEDS: FUROSEMIDE 40 MG TABLET PO SCH (09:00)
[2019-09-25] MEDS: methylPREDNISolone SOD SUCC 125 MG/2ML VIAL IV SCH ×3 (09:01→17:43)
[2019-09-25] MEDS: CLOTRIMAZOLE 1% 15 GM TUBE TP SCH ×2 (09:01→17:43)
[2019-09-25] MEDS: LORAZEPAM INJ 2 MG/ML VIAL IV PRN ×2 (09:01→21:46)
--- NOTE | 2019-09-25 10:03 | NUR ---
Spoke to NII Andrew regarding U/S Guided Thoracentesis, he informed me that it will be done on Mon (09/25)
--- NOTE | 2019-09-25 13:01 | NUR ---
RN NOTE: PATIENT REFUSED INSULIN DOSE DUE.
[2019-09-25 16:00] VITALS: BP 108/64
--- NOTE | 2019-09-25 19:30 | NUR ---
MS RN CLOSING NOTE: PATIENT IN BED AND ASLEEP. ON ACUTE MEDICAL RESTRAINTS DUE TO BEHAVIOR IDENTIFIED AND PULLING OUT OF LINES STILL APPARENT ON SHIFT. ON CONT. O2 VIA NC @3LPM TOLERATING WELL.NO SOB NOTED AND NOT IN ACUTE DISTRESS. HD FEMORAL CATHETER LOCATED AT LEFT THIGH, SITE CLEAN, SECURE. HD DONE TODAY WIT 1500ML OUTPUT. WITH IV MIDLINE SITE RIGOBERTO. SITE PATENT, CLEAN AND DRY. NO PAIN NOTED. ON CARDIAC MONITORING WITH CONTROLLED ATRIAL FIBRILLATION NOTED. CALL LIGHT IN REACH, SIDE RAILS UP, LOCKED, LOW AND AT SEMI-ROJAS'S POSITION. ENDORSED TO ONCOMING SHIFT FOR KASSY
--- NOTE | 2019-09-25 19:42 | NUR ---
MS RN NOTES: RECEIVED PATIENT IN BED AND ASLEEP. ON ACUTE MEDICAL RESTRAINTS DUE TO BEHAVIOR IDENTIFIED AND PULLING OUT OF LINES STILL APPARENT ON SHIFT. ON CONT. O2 VIA NC @3LPM TOLERATING WELL.NO SOB NOTED AND NOT IN ACUTE DISTRESS. HD FEMORAL CATHETER LOCATED AT LEFT THIGH, SITE CLEAN, SECURE. HD DONE TODAY WIT 1500ML OUTPUT. WITH IV MIDLINE SITE RIGOBERTO. SITE PATENT, CLEAN AND DRY. NO PAIN NOTED. ON CARDIAC MONITORING WITH CONTROLLED ATRIAL FIBRILLATION NOTED. SAFETY MEASURES IN PLACE, CALL LIGHT IN REACH, SIDE RAILS UP, LOCKED, LOW AND AT SEMI-ROJAS'S POSITION. ASPIRATION PRECAUTION EMPHASIZED. ALL NEEDS ATTENDED, WILL MONITOR ACCORDINGLY.
[2019-09-25 20:23] VITALS: BP 118/60
[2019-09-26 00:14] VITALS: BP 118/60
[2019-09-26] MEDS: ALBUTEROL HALF STRENGTH 1.25 MG/3 ML VIAL.NEB NEB SCH ×6 (03:24→23:18)
--- NOTE | 2019-09-26 06:43 | NUR ---
RN NOTES ALL NEEDS ATTENDED AND MET ABLE TO REST AND SLEPT AT INTERVALS, SAFETY MEASURES INPLACE, ASPIRATION PRECAUTION EMPHASIZED. WILL ENDORSE TO AM NURSE FOR CONTINUITY OF CARE.
[2019-09-26 07:03] LABS: CALCIUM, SERUM 9.8 mg/dL (8.5-10.1); CARBON DIOXIDE 30 mmol/L (21-32); CHLORIDE 103 mmol/L (98-107); CREATININE 4.2 mg/dL (0.6-1.3); GLUCOSE 185 mg/dL (74-106); POTASSIUM 4.4 mmol/L (3.5-5.1); SODIUM SERUM 143 mmol/L (136-145); UREA NITROGEN, BLOOD 77 mg/dL (7-18)
--- NOTE | 2019-09-26 07:11 | NUR ---
MS RN OPENING NOTE RECEIVED REPORT FROM [facility] SHIFT NURSE. PT ASLEEP IN BED, ON 02 VIA NC 4L/MIN, SATURATING WELL, RESPIRATIONS EVEN AND UNLABORED, NO SIGNS OF RESPIRATORY DISTRESS NOTED. LEFT UPPER ARM MIDLINE INTACT, PATENT, SECURED WITH CLEAN DRESSING. BILATERAL SOFT WRIST RESTRAINTS IN PLACE, SKIN INTEGRITY AND CIRCULATION CHECKED, BILATERAL PULSES PRESENT, NO REDNESS NOTED. BED IN LOW POSITION, LOCKED, CALL LIGHT WITHIN REACH, NPO STATUS FOLLOWED FOR US GUIDED THORACENTESIS SCHEDULED FOR TODAY, CONSENT SIGNED.
[2019-09-26 07:24] LABS: BASOPHILS % (AUTO) 0.1 % (0.0-2.0); HEMATOCRIT 38 % (33-45); HEMOGLOBIN 12.6 g/dL (11.5-14.8); LYMPHOCYTES # (AUTO) 0.2 /CMM (0.8-4.8); LYMPHOCYTES % (AUTO) 2.4 % (20.0-44.0); MEAN CORPUSCULAR HGB CONC 33 g/dl (31.0-36.0); MEAN CORPUSCULAR VOLUME 98 fL (82-100); MONOCYTES # (AUTO) 0.5 /CMM (0.1-1.30); MONOCYTES % (AUTO) 5.5 % (2.0-12.0); PLATELET COUNT (AUTO) 183 /CMM (150-450); RED BLOOD CELL COUNT(AUTO) 3.88 MIL/uL (4.0-5.2); WHITE BLOOD COUNT (AUTO) 8.7 K/uL (4.3-11.0)
[2019-09-26] MEDS: BLOOD SUGAR DIAGNOSTIC 1 EACH STRIP IN SCH ×4 (07:40→21:38)
[2019-09-26] MEDS: INSULIN REGULAR, HUMAN 100 UNIT/ML 3 ML VIAL SQ PRN ×3 (07:44→21:56)
[2019-09-26 08:00] VITALS: BP_SYST 146; BP_SYST 148; BP_DIAS 83
[2019-09-26] MEDS: methylPREDNISolone SOD SUCC 125 MG/2ML VIAL IV SCH ×3 (08:25→17:27)
[2019-09-26] MEDS: ATORVASTATIN 40 MG TABLET PO SCH (09:22)
[2019-09-26] MEDS: AMLODIPINE BESYLATE 5 MG TABLET PO SCH (09:23)
[2019-09-26] MEDS: FUROSEMIDE 40 MG TABLET PO SCH (09:23)
[2019-09-26] MEDS: CLOTRIMAZOLE 1% 15 GM TUBE TP SCH ×2 (09:24→17:31)
[2019-09-26 16:00] VITALS: BP 151/72
--- NOTE | 2019-09-26 19:16 | NUR ---
MS RN CLOSING NOTE PT ASLEEP IN BED, ON 02 VIA NC 4L/MIN, SATURATING WELL, RESPIRATIONS EVEN AND UNLABORED, NO SIGNS OF RESPIRATORY DISTRESS NOTED. LEFT UPPER ARM MIDLINE INTACT, PATENT, SECURED WITH CLEAN DRESSING. BILATERAL SOFT WRIST RESTRAINTS IN PLACE, SKIN INTEGRITY AND CIRCULATION CHECKED, BILATERAL PULSES PRESENT, NO REDNESS NOTED. BED IN LOW POSITION, LOCKED, CALL LIGHT WITHIN REACH. PROVIDED SAFETY AND COMFORT TO PT THROUGHOUT SHIFT, ALL DUE MEDS GIVEN, TURNED AND REPOSITIONED EVERY 2 HOURS THROUGHOUT SHIFT. WILL ENDORSE TO NOC SHIFT NURSE.
--- NOTE | 2019-09-26 19:30 | NUR ---
MS RN OPENING NOTES RECEIVED PATIENT A/O X2 WITH NO SIGN OF DISTRESS. PATIENT IS ON 2L OF O2 WITH NO SOB. PATIENT IS AN BELIZEAN SPEAKER. IV ACCESS ON THE RIGOBERTO MIDLINE S/L PATENT AND FLUSHING. PATIENT HAD THE LT FEMORAL HD CATHETER NO SIGNS OF COMPLICATIONS. HAS ON RESTRAINTS ASSESSES FOR CIRCULATION PULSES ARE PALPABLE. ALL SAFETY PRECAUTIONS WERE APPLIED. WILL CONTINUE TO MONITOR PATIENT.
[2019-09-26 20:00] VITALS: BP_SYST 112; BP_SYST 176; BP_DIAS 59; BP_DIAS 81
[2019-09-26] MEDS: LORAZEPAM INJ 2 MG/ML VIAL IV PRN (21:38)
[2019-09-27] VITALS (33 sets, daily range): BP systolic 72–147; BP diastolic 33–92
[2019-09-27] MEDS: ALBUTEROL HALF STRENGTH 1.25 MG/3 ML VIAL.NEB NEB SCH ×6 (04:10→23:39)
[2019-09-27 06:06] LABS: *SPE ALBUMIN 3.8 g/dL (2.9-4.4); *SPE ALPHA-1-GLOBULIN 0.3 g/dL (0.0-0.4); *SPE ALPHA-2-GLOBULIN 0.8 g/dL (0.4-1.0); *SPE M-SPIKE Not Observed g/dL (Not Observed); *SPEGAMMA GLOBULIN 1.9 g/dL (0.4-1.8)
--- NOTE | 2019-09-27 07:39 | NUR ---
RN OPENING NOTES RECEIVED PATIENT RESTING IN BED COMFORTABLY, DENIES ANY DISCOMFORT OR SOB AT THIS TIME. SHE IS AOX2, VERBAL AND ON BEDREST. SHE IS ON 2L OF OCYGEN VIA NC, TOLERATING WELL, NO SOB OR RESP DISTRESS. SHE HAS SLIGHT EDEMA ON BILATERAL LOWER EXTREMITIES. SKIN IS INTACT, SACRAL REDNESS NOTED. SHE IS ON RENAL DIET, TOLERATING WELL. RIGOBERTO MIDLINE S/L IS PATENT AND INTACT. PT HAS AN IMMATURE ACV SHUNT ON RAC, POSITIVE FOR BRUIT AND THRILL. SAFETY MEASURES HAVE BEEN IMPLEMENTED, CALL LIGHT IS WITHIN REACH, SIDE RAILS UP X2, BED IS IN LOWEST AND LOCKED POSITION, WILL CONTINUE TO MONITOR FOR ANY CHANGES.
[2019-09-27 07:40] LABS: BASOPHILS % (AUTO) 0.2 % (0.0-2.0); HEMATOCRIT 39 % (33-45); HEMOGLOBIN 12.6 g/dL (11.5-14.8); LYMPHOCYTES # (AUTO) 0.3 /CMM (0.8-4.8); LYMPHOCYTES % (AUTO) 2.2 % (20.0-44.0); MEAN CORPUSCULAR HGB CONC 32 g/dl (31.0-36.0); MEAN CORPUSCULAR VOLUME 96 fL (82-100); MONOCYTES # (AUTO) 0.3 /CMM (0.1-1.30); MONOCYTES % (AUTO) 2.1 % (2.0-12.0); NEUTROPHILS % (AUTO) 95.5 % (43.0-81.0); PLATELET COUNT (AUTO) 198 /CMM (150-450); RED BLOOD CELL COUNT(AUTO) 4.03 MIL/uL (4.0-5.2); WHITE BLOOD COUNT (AUTO) 12.6 K/uL (4.3-11.0)
[2019-09-27] MEDS: BLOOD SUGAR DIAGNOSTIC 1 EACH STRIP IN SCH ×4 (07:50→23:16)
--- NOTE | 2019-09-27 07:52 | NUR ---
MS RN CLOSING NOTE PATIENT IN BED WITH NO DISCOMFORT. RESTRAINT APPLIED SAFELY AND CIRCULATION CHECKED. ALL SAFETY PRECAUTIONS APPLIED WILL ENDORSE TO MORNING SHIFT NURSE.
[2019-09-27] MEDS: INSULIN REGULAR, HUMAN 100 UNIT/ML 3 ML VIAL SQ PRN ×4 (08:14→23:20)
[2019-09-27] MEDS: FUROSEMIDE 40 MG TABLET PO SCH (08:15)
[2019-09-27] MEDS: AMLODIPINE BESYLATE 5 MG TABLET PO SCH (08:16)
[2019-09-27] MEDS: ATORVASTATIN 40 MG TABLET PO SCH (08:17)
[2019-09-27] MEDS: methylPREDNISolone SOD SUCC 125 MG/2ML VIAL IV SCH ×3 (08:18→17:30)
[2019-09-27 08:23] LABS: CALCIUM, SERUM 9.8 mg/dL (8.5-10.1); CARBON DIOXIDE 27 mmol/L (21-32); CHLORIDE 100 mmol/L (98-107); CREATININE 4.9 mg/dL (0.6-1.3); GLUCOSE 230 mg/dL (74-106); POTASSIUM 5.4 mmol/L (3.5-5.1); SODIUM SERUM 138 mmol/L (136-145)
[2019-09-27 08:27] LABS: UREA NITROGEN, BLOOD 121 mg/dL (7-18)
[2019-09-27] MEDS: CLOTRIMAZOLE 1% 15 GM TUBE TP SCH ×2 (09:28→17:30)
--- NOTE | 2019-09-27 13:30 | NUR ---
PATIENT SBP 80'S,RENAL NOTIFIED NEED HEMODIALYSIS TODAY AND IF BP CONTINUE TO BE LOW HOLD D/C,PRIMARY MD NOTIFIED.
[2019-09-27] MEDS ORDERED: IV NS 0.9% 500 ML IV ONE (15:30)
--- NOTE | 2019-09-27 16:30 | NUR ---
RN NOTES PT BP HAS BEEN LOW. 500 ML NS BOLUS WAS GIVEN BUT TO NO EFFECT. DURING HD, BLOOD PRESSURE DROPPED CONSIDERABLY AND WAS STOPPED. PT WAS GIVEN ALBUMIN AND IT BROUGHT BP UP TO 90'S SYSTOLIC. SHAWN MEETING MANAGER MADE AWARE OF PATIENTS CONDITION. PATIENT HAS BEEN TRANSFERRED TO ICU IN RM 253, TRANSFER REPORT GIVEN TO VERNON BALES.
[2019-09-27 16:45] LABS: HEMATOCRIT 27 % (33-45); HEMOGLOBIN 8.7 g/dL (11.5-14.8); MEAN CORPUSCULAR HGB CONC 32 g/dl (31.0-36.0); MEAN CORPUSCULAR VOLUME 94 fL (82-100); PLATELET COUNT (AUTO) 174 /CMM (150-450); WHITE BLOOD COUNT (AUTO) 14.2 K/uL (4.3-11.0)
[2019-09-27] MEDS: NOREPINEPHRINE 16 MG in IV D5W 500 ML IV PRN (16:54)
[2019-09-27] MEDS: ALBUMIN 25% 25 GM in PREMIX 1 EA IV PRN (17:10)
--- NOTE | 2019-09-27 18:08 | NUR ---
RN NOTE 1700: Received patient from tele 1 for low BP while on HD. A/Ox1, accompanied by son. No c/o pain. RIGOBERTO midline intact, will start on Levo low dose. Left fem HD cath intact. On 2LPM of O2 via NC. 1730: Reported to Ceci MEAT AND POULTRY INSPECTOR re: CBC result, WBC 14.2m H/H8.7/27 form 12.6/39 and noted with x3 tarry stools per report and with c/o nausea, obtained order for Protonix, GI consult, H/H q4 x3, CXR. 1745: Made Dr. Sevilla aware for the GI consult and updated re: patient's condition. 1800: On Levo @ 6, will continue to monitor. Kept clean, warm and dry. Needs attended. Family at bedside, aware for the POC.
[2019-09-27] MEDS ORDERED: PANTOPRAZOLE 80 MG in IV NS 0.9% 100 ML IV ONE (18:30)
[2019-09-27] MEDS ORDERED: PANTOPRAZOLE 80 MG in IV NS 0.9% 500 ML IV PRN (18:30)
--- NOTE | 2019-09-27 19:30 | NUR ---
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 ALERT TO SELF, FOLLOW COMMANDS AT TIMES. ON 2L 02 VIA NC WT NO ACUTE DISTRESS. NO FACIAL GRIMACE OR EVIDENCE OF DISCOMFORT. RIGHT HAND/ARM NOTED WEAK AND DOES NOT MOVE MUCH LEFT ARM. WILL CONTINUE ON LEFT SOFT WRIST RESTRAINTS FOR TRYING TO PULL OUT TUBINGS. SKIN AND CIRCULATION WNL WT NO NEW SKIN BREAKDOWN. ABLE TO MOVE BILAT. LOWER EXTREMITIES. LEFT. FEMORAL HD CATH INTACT. HOB AT 35 DEGREES, BED IN LOWEST AND LOCKED POSITION, SIDE RAILS UP X2, BED ALARM ON WT FREQUENT VISUAL CHECKS. WILL CONTINUE TO MONITOR.
[2019-09-27] MEDS: PANTOPRAZOLE 40 MG VIAL IV SCH (19:51)
[2019-09-27 21:15] LABS: OCCULT BLOOD STOOL NEGATIVE (NEGATIVE)
[2019-09-27 21:24] LABS: HEMOGLOBIN 9.5 g/dL (11.5-14.8)
[2019-09-28] VITALS (101 sets, daily range): BP systolic 63–153; BP diastolic 29–119
[2019-09-28] MEDS: ALBUTEROL HALF STRENGTH 1.25 MG/3 ML VIAL.NEB NEB SCH ×6 (03:50→23:24)
[2019-09-28 05:14] LABS: HEMOGLOBIN 9.4 g/dL (11.5-14.8)
[2019-09-28] MEDS: PANTOPRAZOLE 40 MG VIAL IV SCH ×2 (06:30→17:35)
--- NOTE | 2019-09-28 06:45 | NUR ---
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 STILL ON LEVOPHED AT 14MCG/MIN FOR BP SUPPORT. ALL NEEDS MET. SAFETY PRECAUTION NOTED AT ALL TIMES.
--- NOTE | 2019-09-28 07:15 | NUR ---
DREDGE PUMP OPERATOR OPENING NOTES RECEIVED REPORT FROM PM NURSE.PATIENT IN BED . AOX1. ON 2L O2 VIA NASAL CANULA.TOLERATING WELL. NO SOB NO RESP DISTRESS NOTED. HAS MILD EDEMA ON BILATERAL LOWER EXTREMITIES. RIGOBERTO MIDLINE PATENT AND INTACT WITH NOR EPI 14MCG. HAS AV SHUNT ON SARAH. L FEMORAL HD CATH.ON RIGOBERTO RESTRAINT.R ARM ABLE TO MOVE BUT WEAK . CALL LIGHT IS WITHIN REACH.SIDE RAILS UP X3. BED IS IN LOWEST AND LOCKED POSITION.BED ALARM ON.WILL CONTINUE TO MONITOR . Addendum: 09/29/19 at 1806 by ROQUE COYLE RN RIGOBERTO PICCLINE
[2019-09-28 07:46] LABS: BASOPHILS # (AUTO) 0.1 /CMM (0.0-0.2); BASOPHILS % (AUTO) 0.4 % (0.0-2.0); EOSINOPHILS % (AUTO) 0.1 % (0.0-6.0); HEMATOCRIT 28 % (33-45); HEMOGLOBIN 9.4 g/dL (11.5-14.8); LYMPHOCYTES # (AUTO) 0.9 /CMM (0.8-4.8); MEAN CORPUSCULAR HGB CONC 33 g/dl (31.0-36.0); MEAN CORPUSCULAR VOLUME 96 fL (82-100); MONOCYTES # (AUTO) 1.4 /CMM (0.1-1.30); NEUTROPHILS # (AUTO) 20.4 /CMM (1.8-8.9); NEUTROPHILS % (AUTO) 89.5 % (43.0-81.0); PLATELET COUNT (AUTO) 230 /CMM (150-450); RED BLOOD CELL COUNT(AUTO) 2.92 MIL/uL (4.0-5.2); WHITE BLOOD COUNT (AUTO) 22.8 K/uL (4.3-11.0)
[2019-09-28] MEDS: BLOOD SUGAR DIAGNOSTIC 1 EACH STRIP IN SCH ×4 (07:54→23:29)
[2019-09-28 07:59] LABS: ALANINE AMINOTRANSFERASE 83 U/L (12-78); ALBUMIN 3.8 g/dL (3.4-5.0); ALKALINE PHOSPHATASE 57 U/L (46-116); ASPARTATE AMINOTRANSFERASE 71 U/L (15-37); BILIRUBIN,TOTAL 1.1 mg/dL (0.2-1.0); CALCIUM, SERUM 10.5 mg/dL (8.5-10.1); CARBON DIOXIDE 23 mmol/L (21-32); CHLORIDE 98 mmol/L (98-107); CREATININE 5.9 mg/dL (0.6-1.3); GLUCOSE 262 mg/dL (74-106); MAGNESIUM 2.5 mg/dL (1.8-2.4); SODIUM SERUM 135 mmol/L (136-145); TOTAL PROTEIN, SERUM 6.5 g/dL (6.4-8.2)
[2019-09-28 08:07] LABS: PHOSPHORUS 8.9 mg/dL (2.5-4.9); POTASSIUM 6.6 mmol/L (3.5-5.1); UREA NITROGEN, BLOOD 202 mg/dL (7-18)
[2019-09-28] MEDS ORDERED: VANCOMYCIN 1 GM in IV NS 0.9% 250 ML IV ONE (08:30)
[2019-09-28] MEDS ORDERED: VANCOMYCIN 1 GM in IV D5W 250 ML IV ONE (08:30)
[2019-09-28] MEDS: CLOTRIMAZOLE 1% 15 GM TUBE TP SCH ×2 (08:36→19:06)
[2019-09-28] MEDS: ATORVASTATIN 40 MG TABLET PO SCH (08:36)
[2019-09-28] MEDS: FUROSEMIDE 40 MG TABLET PO SCH (08:36)
[2019-09-28] MEDS: AMLODIPINE BESYLATE 5 MG TABLET PO SCH (08:36)
[2019-09-28] MEDS: methylPREDNISolone SOD SUCC 125 MG/2ML VIAL IV SCH (08:36)
[2019-09-28] MEDS ORDERED: MEROPENEM 1 G in IV NS 0.9% 100 ML IV SCH (09:00)
[2019-09-28] MEDS: MEROPENEM 500 MG in IV NS 0.9% 50 ML IV SCH ×2 (09:12→21:17)
[2019-09-28] MEDS: INSULIN REGULAR, HUMAN 100 UNIT/ML 3 ML VIAL SQ PRN ×3 (09:14→23:35)
--- NOTE | 2019-09-28 09:50 | NUR ---
POWER OPERATOR NOTE SEEN BY ,UPDATED ABOUT PATIENT CONDITION WITH LABS.MADE AWARE THAT PATIENT HAS R ARM WEAKNESS THAT NOTICED NEW.ABLE TO MOVE.GOT NEW ORDER FOR CT SCAN.HD WILL BE TODAY PER SYBIL HOANG.
[2019-09-28] MEDS ORDERED: methylPREDNISolone SOD SUCC 125 MG/2ML VIAL IV SCH (10:30)
[2019-09-28] MEDS: NOREPINEPHRINE 16 MG in IV D5W 500 ML IV PRN (10:59)
[2019-09-28] MEDS ORDERED: VANCOMYCIN 500 MG in IV D5W 100 ML IV PRN (11:00)
[2019-09-28] MEDS ORDERED: HEPARIN SODIUM, PORCINE 5000 UNITS/1 ML VIAL IV ONE (12:30)
[2019-09-28] MEDS: MIDODRINE HCL (5MG) 5 MG TABLET PO SCH ×2 (13:00→17:40)
[2019-09-28 13:02] LABS: APPEARANCE,URINE SL CLOUDY (CLEAR); BILIRUBIN,URINE NEGATIVE (NEGATIVE); BLOOD, URINE NEGATIVE Ery/uL (NEGATIVE); COLOR,URINE YELLOW (YELLOW); KETONES,URINE TRACE (NEGATIVE); LEUKOCYTE ESTERASE ,URINE NEGATIVE (NEGATIVE); NITRITE, URINE NEGATIVE (NEGATIVE); PROTEIN,URINE 100 mg/dl (NEGATIVE); UGLUCOSE NEGATIVE (NEGATIVE); UROBILINOGEN,URINE 0.2 EU/dL (0.2)
[2019-09-28 13:23] LABS: BACTERIA,URINE Few /HPF (None Seen); RBC,URINE NONE SEEN /HPF (0-2); SQUAMOUS EPITHELIAL CELL,UR Moderate /HPF (None Seen); URINE AMORPHOUS URATE Moderate /HPF (None Seen)
--- NOTE | 2019-09-28 13:25 | NUR ---
IT APPLICATIONS MANAGER NOTE GOT NEW ORDER FROM DIALYSIS NURSE FOR HEPARIN 6000 UNIT FOR HD CATH TO UNCLOG.GOT MED FROM PHARMACY AND GAVE TO DIALYSIS NURSE JOSE R FOR ADMINISTRATION.
[2019-09-28 13:51] LABS: ABG BASE EXCESS -7.9 mmol/L; ABG PCO2 33.8 mmHg (35.0-45.0); ABG PH 7.325 (7.350-7.450); ABG PO2 378.8 mmHg (75.0-100.0); AaDO2 192.2 mmHg; COHb 0.3 % (0.5-1.5); MetHb 0.7 % (0.0-1.5); SITE, ABG Left Radial; VENT MODE, BG NRB MASK 15L
--- NOTE | 2019-09-28 14:00 | NUR ---
FURNITURE INSTALLER NOTE PATIENT HAD CHANGE OF CONDITION.UNABLE TO ADMINISTER PO MEDS.MIDODRINE NOT ADMINISTERED.PATIENT NPO.INSULIN NOT ADMINISTERED.WILL MONITOR BLOOD SUGAR.AWAITING PATIENT TO BE STABILIZED.
--- NOTE | 2019-09-28 14:07 | NUR ---
SUPERVISING FIRE MARSHAL NOTE PATIENT HAD AN EPISODE OF DIAPHORESIS AND UNRESPONSIVENESS DURING DIALYSIS@1330.PLACED ON NON REBREATHER.SHALLOW BREATHING.STAT ABG DONE. MADE AWARE WITH PATIENT CONDITION AFIB WITH HR<120..AWAITING TROPONIN RESULT.LET ID KNOW ABOUT NEW CHANGES.PATIENT IS RESPONDING TO PAINFUL STIMULI.STILL LETHARGIC .VITAL SIGNS STABLE.WILL CONTINUE TO MONITOR.
--- NOTE | 2019-09-28 16:00 | NUR ---
SUPERVISOR STAVE FINISHING NOTE 1419:PATIENT HAD ELEVATED TROPONIN.GOT CALL FROM LAB FOR CRITICAL RESULT. MADE AWARE WITH CHANGE OF CONDITION OF THE PATIENT.MADE AWARE ABOUT HR AFIB HR<120.TO CALL FRO AFIB.LEFT MESSAGE TO . 1425:GOT CALL BACK FROM ,MADE AWARE ABOUT PATIENT CONDITION.HE SAID HE DI8D NOT SEEN THIS PATIENT AND CANNOT COME TO SEE PATIENT NOW.TO FOLLOW UP WITH . 1430:DR NICHOLS MADE AWARE ABOUT PATIENT CONDITION AND TROPONIN LEVEL.GOT NEW ORDER TO FOLLOW UP WITH AND REPEAT LAB IN 4 HRS.LEFT MESSAGE TO FOR CONSULT FOR .
[2019-09-28] MEDS ORDERED: NOREPINEPHRINE 16 MG in IV D5W 500 ML IV PRN (16:30)
--- NOTE | 2019-09-28 18:23 | NUR ---
TILE POWER SHEAR OPERATOR NOTE SEEN BY FLAT SURFACER .UPDATED ABOUT PATIENT CONDITION WITH LABS.GOT NEW ORDERS. MADE AWARE TO CALL FAMILY.LEFT MESSAGE PER SON'S REQUEST.
[2019-09-28 18:30] LABS: ALANINE AMINOTRANSFERASE 72 U/L (12-78); ALBUMIN 3.4 g/dL (3.4-5.0); ALKALINE PHOSPHATASE 55 U/L (46-116); ASPARTATE AMINOTRANSFERASE 54 U/L (15-37); BILIRUBIN,TOTAL 0.9 mg/dL (0.2-1.0); CARBON DIOXIDE 24 mmol/L (21-32); CHLORIDE 100 mmol/L (98-107); CREATININE 4.9 mg/dL (0.6-1.3); GLUCOSE 327 mg/dL (74-106); POTASSIUM 5.6 mmol/L (3.5-5.1); SODIUM SERUM 138 mmol/L (136-145); TOTAL PROTEIN, SERUM 5.8 g/dL (6.4-8.2)
[2019-09-28 18:32] LABS: UREA NITROGEN, BLOOD 147 mg/dL (7-18)
--- NOTE | 2019-09-28 19:25 | NUR ---
OIL SEAL ASSEMBLER CLOSING NOTES PATIENT IN BED . AOX1.LETHARGIC. ON 2L O2 VIA NASAL CANULA.TOLERATING WELL. NO SOB NO RESP DISTRESS NOTED. RIGOBERTO MIDLINE PATENT AND INTACT WITH LEVO. HAS AV SHUNT ON SARAH. L FEMORAL HD CATH.BUE RESTRAINT.PATIENT IS TAKING OFF CHEST LEADS AND PULLING OUT LINES . CALL LIGHT IS WITHIN REACH.SIDE RAILS UP X3. BED IS IN LOWEST AND LOCKED POSITION.BED ALARM ON.AWAITING GI CONSULT.ENDORSED TO PM NURSE FOR KASSY. Addendum: 09/29/19 at 1806 by ROQUE COYLE RN RIGOBERTO PICCLINE
--- NOTE | 2019-09-28 19:25 | NUR ---
ICU/CALENDER ROLL OPERATOR CALL WAS SENT OUT TO DR SYBIL Gonzalez ABOUT ELEVATED POTASSIUM AT 5.6, AWAIT CALL BACK. PT HAD DIALYSIS TODAY HOWEVER OT WAS JUST A WASH DUE TO PT'S BLOOD PRESSURE DROPPED DURING DIALYSIS.
--- NOTE | 2019-09-28 19:30 | NUR ---
ICU/CLINICAL FIELD SPECIALIST PT WAS RECEIVED ON LEVO AT 8MCG, HOWEVER DAY SHIFT RN DID NOT SCAN THIS MEDICATION. NOTIFIED COVERING RN OF THIS. CRAB PICKER RN SCANNED THIS MEDICATION. WILL CONTINUE TO MONITOR THIS PT AND HER BLOOD PRESSURE.
--- NOTE | 2019-09-28 19:45 | NUR ---
ICU/BREAD WRAPPING MACHINE FEEDER RECEIVED REPORT FROM DAY SHIFT NURSE. SEE FLOWSHEET FOR ASSESSMENT. THERE ARE A FEW SKIN ISSUES THAT ARE ADDRESSED, ALONG WITH THE INTERVENTIONS TO EACH. PT IS ALERT TO SELF. PT IS ON 2 LITERS VIA N/C, TOLERATING THIS WELL WITH SATURATION AT 100%. PT WAS TURNED AND REPOSITIONED FOR COMFORT AND CARE, WILL CONTINUE TO MONITOR THIS PT.
--- NOTE | 2019-09-28 21:00 | NUR ---
ICU/REGION MANAGER PT'S BLOOD PRESSURE IS STABLE WITH IT AT 120'S TO 130'S. NOTIFIED COVERING RN ABOUT THIS, WHO THEN DECREASED THE LEVO FROM 8MCG DOWN TO 6MCG. WILL CONTINUE TO MONITOR THIS PT AND HER BLOOD PRESSURE. PT WAS THEN TURNED AND REPOSITIONED FOR COMFORT AND CARE.
--- NOTE | 2019-09-28 23:00 | NUR ---
ICU/MARINE ENGINEERING CONSULTANT PT'S BLOOD SUGAR IS 238, WHICH WAS COVERED WITH 4 UNITS REGULAR INSULIN. WILL CONTINUE TO MONITOR THIS PT'S SUGARS ORDERED BY MD AND HOSPITAL PROTOCOL.
[2019-09-29] VITALS (94 sets, daily range): BP systolic 40–140; BP diastolic 20–98
--- NOTE | 2019-09-29 01:45 | NUR ---
ICU/ROBOT TECHNICIAN PT WAS GIVEN AM CARE, ALONG WITH ORAL CARE.PT REMAINS ON 2 LITERS N/C WITH SATURATION AT 100%.PT WAS TURNED AND REPOSITIONED FOR COMFORT AND CARE. NO ACUTE DISTRESS SEEN AT THIS TIME. WILL CONTINUE TO MONITOR THIS PT.
[2019-09-29] MEDS: ALBUTEROL HALF STRENGTH 1.25 MG/3 ML VIAL.NEB NEB SCH ×6 (03:20→23:39)
--- NOTE | 2019-09-29 03:30 | NUR ---
ICU/ASSEMBLING MACHINE OPERATOR AM LABS WERE DONE ALONG WITH CHEST XRAY, AWAIT FOR ANY ABNORMAL RESULTS.
--- NOTE | 2019-09-29 04:20 | NUR ---
ICU/FISH EGG PACKER PT'S BLOOD PRESSURE IS STABLE WITH IT AT 140'S TO 130'S. NOTIFIED COVERING RN ABOUT THIS, WHO THEN DECREASED THE LEVO FROM 6MCG DOWN TO 4MCG. WILL CONTINUE TO MONITOR THIS PT AND HER BLOOD PRESSURE. PT WAS THEN TURNED AND REPOSITIONED FOR COMFORT AND CARE
[2019-09-29 04:21] LABS: BASOPHILS % (AUTO) 0.2 % (0.0-2.0); EOSINOPHILS % (AUTO) 0.1 % (0.0-6.0); HEMATOCRIT 24 % (33-45); HEMOGLOBIN 7.7 g/dL (11.5-14.8); LYMPHOCYTES % (AUTO) 3.9 % (20.0-44.0); MEAN CORPUSCULAR HGB CONC 32 g/dl (31.0-36.0); MEAN CORPUSCULAR VOLUME 96 fL (82-100); MONOCYTES # (AUTO) 2.6 /CMM (0.1-1.30); MONOCYTES % (AUTO) 10.1 % (2.0-12.0); NEUTROPHILS # (AUTO) 22.3 /CMM (1.8-8.9); NEUTROPHILS % (AUTO) 85.7 % (43.0-81.0); PLATELET COUNT (AUTO) 158 /CMM (150-450)
[2019-09-29 04:37] LABS: ALANINE AMINOTRANSFERASE 89 U/L (12-78); ALBUMIN 3.2 g/dL (3.4-5.0); ALKALINE PHOSPHATASE 50 U/L (46-116); ASPARTATE AMINOTRANSFERASE 48 U/L (15-37); BILIRUBIN,TOTAL 0.6 mg/dL (0.2-1.0); CARBON DIOXIDE 24 mmol/L (21-32); CHLORIDE 98 mmol/L (98-107); CREATININE 5.4 mg/dL (0.6-1.3); GLUCOSE 232 mg/dL (74-106); MAGNESIUM 2.3 mg/dL (1.8-2.4); SODIUM SERUM 136 mmol/L (136-145); TOTAL PROTEIN, SERUM 5.7 g/dL (6.4-8.2)
[2019-09-29 04:53] LABS: PHOSPHORUS 9.4 mg/dL (2.5-4.9); POTASSIUM 6.3 mmol/L (3.5-5.1); UREA NITROGEN, BLOOD 166 mg/dL (7-18)
--- NOTE | 2019-09-29 05:16 | NUR ---
ICU/RECYCLABLE PRODUCTS SORTER DR GONG FROM NEPHROLOGY WAS CALLED ABOUT CRITICAL LAB VALUES. POT-6.3, BUN-166, PHOS-9.4, LACTIC ACID-2.5. WAITING CALL BACK, CHARGE NURSE AWARE OF THESE CRITICAL.
--- NOTE | 2019-09-29 05:20 | NUR ---
ICU/GENERAL ASSEMBLER INSTALLER PT'S BLOOD PRESSURE IS STABLE WITH IT AT 130'S-120'S. NOTIFIED COVERING RN ABOUT THIS, WHO THEN DECREASED THE LEVO FROM 4MCG DOWN TO 2MCG. WILL CONTINUE TO MONITOR THIS PT AND HER BLOOD PRESSURE. PT WAS THEN TURNED AND REPOSITIONED FOR COMFORT AND CARE
[2019-09-29] MEDS: PANTOPRAZOLE 40 MG VIAL IV SCH ×2 (05:30→17:32)
--- NOTE | 2019-09-29 05:51 | NUR ---
ICU/NETWORK SERVICES PROJECT MANAGER SECOND CALL TO DR GONG FROM NEPHROLOGY WAS CALLED ABOUT CRITICAL LAB VALUES. POT-6.3, BUN-166, PHOS-9.4, LACTIC ACID-2.5. WAITING CALL BACK, CHARGE NURSE AWARE OF THESE CRITICAL.
[2019-09-29] MEDS ORDERED: SODIUM BICARBONATE SYR 50 MEQ/50 ML DISP.SYRIN IV ONE (06:00)
[2019-09-29] MEDS ORDERED: ALBUTEROL FS 2.5 MG/0.5 ML VIAL.NEB NEB SCH (06:00)
[2019-09-29] MEDS ORDERED: SODIUM POLYSTYRENE SULFONATE 15 G/60 ML BOTTLE RC ONE (06:00)
--- NOTE | 2019-09-29 06:02 | NUR ---
ICU/TREE PRUNER DR GONG FROM NEPHROLOGY WAS CALLED BACK ABOUT CRITICAL LAB VALUES. POT-6.3, BUN-166, PHOS-9.4, LACTIC ACID-2.5. ORDERS WERE RECEIVED FOR KAYEXALATE 30GRAM RECTAL, ALBUTEROL 1 NEB TREATMENT, SODIUM BICARB I AMP X 1. CHARGE NURSE MADE AWARE OF THESE ORDERS FOR CRITICAL LAB VALUES. WAITING FOR PHARMACY TO VERIFY SO THAT ORDERS CAN BE CARRIED OUT.
--- NOTE | 2019-09-29 06:28 | NUR ---
ICU/OPERATIONS RESEARCH ANALYST PT'S BLOOD PRESSURE IS 80'S-60'S. NOTIFIED COVERING RN ABOUT THIS, WHO THEN INCREASED THE LEVO FROM 2MCG UP TO 4MCG. WILL CONTINUE TO MONITOR THIS PT AND HER BLOOD PRESSURE. PT WAS THEN TURNED AND REPOSITIONED FOR COMFORT AND CARE
[2019-09-29 06:31] LABS: BILIRUBIN,DIRECT 0.2 mg/dL (0.0-0.2)
[2019-09-29] MEDS ORDERED: SODIUM POLYSTYRENE SULFONATE 15 G/60 ML BOTTLE ONE (06:37)
[2019-09-29] MEDS: ALBUMIN 25% 25 GM in PREMIX 1 EA IV PRN (06:58)
[2019-09-29] MEDS: BLOOD SUGAR DIAGNOSTIC 1 EACH STRIP IN SCH ×4 (08:00→22:38)
--- NOTE | 2019-09-29 08:31 | NUR ---
received pt from night clerk, alert, follows commands, A fib controlled, NPO GI consult pending, possible GI bleed, having HD right now, restraints on, on levo at 8mcg, v/s stable, no pain, pt turned and repositioned.
[2019-09-29] MEDS ORDERED: methylPREDNISolone SOD SUCC 125 MG/2ML VIAL IV SCH (09:00)
--- NOTE | 2019-09-29 09:30 | NUR ---
pt started on astrid, levo stopped per Dr Saavedra.
[2019-09-29] MEDS: MEROPENEM 500 MG in IV NS 0.9% 50 ML IV SCH ×2 (09:37→21:03)
[2019-09-29] MEDS: HYDROCORTISONE SOD SUCCINATE 100 MG/2 ML VIAL IV SCH ×3 (09:37→17:12)
[2019-09-29] MEDS: MIDODRINE HCL (5MG) 5 MG TABLET PO SCH ×3 (09:38→17:10)
[2019-09-29] MEDS: FUROSEMIDE 40 MG TABLET PO SCH (09:38)
[2019-09-29] MEDS: ATORVASTATIN 40 MG TABLET PO SCH (09:38)
[2019-09-29] MEDS: CLOTRIMAZOLE 1% 15 GM TUBE TP SCH ×2 (09:39→17:11)
[2019-09-29] MEDS: PHENYLEPHRINE 80 MG in IV D5W 250 ML IV PRN ×2 (10:00→20:08)
--- NOTE | 2019-09-29 12:00 | NUR ---
HD done, 1 unit of PRBCs transfused with HD.
--- NOTE | 2019-09-29 16:52 | NUR ---
pt is resting the bed, alert, follows simple commands, A fib, on astrid at 100mcg, on 2L 02 sat well, v/s stable, no pain, son at the bedside, pt cleaned, changed and repositioned q2hrs.
[2019-09-29] MEDS: INSULIN REGULAR, HUMAN 100 UNIT/ML 3 ML VIAL SQ PRN ×2 (17:24→22:40)
--- NOTE | 2019-09-29 19:00 | NUR ---
RECEIVED PATIENT LETHARGIC,AT FIRST HARD TO AROUSE,REQUIRED REPEATED CALLING HER NAME AND TAPPING ,BARELY TALKING .ONCE MORE ALERT, FOLLOWS SIMPLE COMMANDS ,BUT STILL SLOW ,MOVES ALL EXTREMITIES BUT SEEMS WEAKER ON THE RIGHT ARM.WHEN SPOKEN TO WITH SLEETMUTE LANGUAGE( PER DAUGHTER AT BEDSIDE), UNDERSTANDS AND RECOGNIZES HER FAMILY.ON O2 VIA NASAL CANNULA 2L/MIN, NOT IN ANY RESPIRATORY DISTRESS RATHER WITH VERY SHALLOW RESPIRATION WITH WEAK RESPIRATORY EFFORT BUT SATURATING 98-98%. WILL CLOSELY MONITOR NEURO STATUS AND RESPIRATORY STATUS.ASPIRATION PRECAUTION OBSERVED,PATIENT STILL NPO. ON NEOSYNEPHRINE DRIP FOR BP SUPPORT VIA RIGOBERTO PICC LINE.AV FISTULA @ SARAH.(RIGHT ARM PRECAUTION OBSERVED/NO BLOOD DRAWING/NO VENOUS STICK)
--- NOTE | 2019-09-29 22:00 | NUR ---
MORE AWAKE,ALERT,SEEMS COHERENT BUT RESTLESS. BP STABLE WILL WEAN DOWN NEOSYNEPHRINE DRIP SLOWLY TOLERATED.
[2019-09-30] VITALS (89 sets, daily range): BP systolic 68–149; BP diastolic 25–99
--- NOTE | 2019-09-30 | NUR ---
STILL AWAKE,ALERT, NOT IN ANY DISTRESS,RESTLESS,BUT FOLLOWS COMMANDS.BP STABLE
--- NOTE | 2019-09-30 02:00 | NUR ---
TOLERATING WEANING OF NEOSYNEPHRINE ,NOW @ 70 MCG/MIN.STILL AWAKE,UNABLE TO SLEEP.
--- NOTE | 2019-09-30 03:00 | NUR ---
AM BATH DONE,TOLERATED FLAT POSITION AND TURNING,NO RESPIRATORY DISTRESS BUT SEEMS TO DESATURATE IF ON ROOM AIR FOR LONG PERIOD,WILL MAINTAIN ON NASAL CANNULA.
[2019-09-30] MEDS: ALBUTEROL HALF STRENGTH 1.25 MG/3 ML VIAL.NEB NEB SCH ×6 (04:27→23:36)
--- NOTE | 2019-09-30 06:00 | NUR ---
STATUS UNCHANGED,AWAKE,ALERT.NEOSYNEPHRINE DRIP NOW @ 80 MCG/MIN. 0700 REPORT GIVEN TO MALIK BALES.
[2019-09-30] MEDS: PANTOPRAZOLE 40 MG VIAL IV SCH ×2 (06:05→17:42)
--- NOTE | 2019-09-30 07:10 | NUR ---
ICU INITIAL RN NOTES Rec'd pt awake on bed, not in any distress but little bit restless, A/O x 1. On NC at 2lpm, no SOB. Controlled Afib on telemonitor HR 75 bpm. Has RIGOBERTO PICC line w/ Gael drip x 80 mcg infusing well. Has R AVF, arm precaution noted. Has L femoral HD cath in place. Has B soft wrist restraints on d/t episode of pulling out equipment. Safety precaution in place w/ bed in lowest & locked pos. Call light placed w/in reach. Will cont to monitor & attend pt needs.
[2019-09-30] MEDS: BLOOD SUGAR DIAGNOSTIC 1 EACH STRIP IN SCH ×4 (07:51→21:26)
[2019-09-30] MEDS: INSULIN REGULAR, HUMAN 100 UNIT/ML 3 ML VIAL SQ PRN ×4 (07:54→21:28)
[2019-09-30] MEDS: ATORVASTATIN 40 MG TABLET PO SCH (08:08)
[2019-09-30] MEDS: MIDODRINE HCL (5MG) 5 MG TABLET PO SCH ×3 (08:08→17:36)
--- NOTE | 2019-09-30 08:30 | NUR ---
Pt seen & examined by Dr. Queen, updated about pt condition. Per , may DC solumedrol IV.
[2019-09-30] MEDS: FUROSEMIDE 40 MG TABLET PO SCH (08:42)
--- NOTE | 2019-09-30 08:45 | NUR ---
Per Dr. Brown, may order CBC & BMP today.
[2019-09-30] MEDS: CLOTRIMAZOLE 1% 15 GM TUBE TP SCH ×2 (09:14→17:36)
[2019-09-30] MEDS: MEROPENEM 500 MG in IV NS 0.9% 50 ML IV SCH ×2 (09:14→20:47)
[2019-09-30] MEDS: HYDROCORTISONE SOD SUCCINATE 100 MG/2 ML VIAL IV SCH ×3 (09:14→17:31)
[2019-09-30 09:29] LABS: BASOPHILS # (AUTO) 0.1 /CMM (0.0-0.2); BASOPHILS % (AUTO) 0.3 % (0.0-2.0); HEMATOCRIT 25 % (33-45); HEMOGLOBIN 8.1 g/dL (11.5-14.8); LYMPHOCYTES # (AUTO) 0.7 /CMM (0.8-4.8); LYMPHOCYTES % (AUTO) 2.6 % (20.0-44.0); MEAN CORPUSCULAR HGB CONC 33 g/dl (31.0-36.0); MEAN CORPUSCULAR VOLUME 94 fL (82-100); MONOCYTES # (AUTO) 1.8 /CMM (0.1-1.30); MONOCYTES % (AUTO) 6.7 % (2.0-12.0); NEUTROPHILS # (AUTO) 24.4 /CMM (1.8-8.9); NEUTROPHILS % (AUTO) 90.4 % (43.0-81.0); PLATELET COUNT (AUTO) 139 /CMM (150-450); RED BLOOD CELL COUNT(AUTO) 2.64 MIL/uL (4.0-5.2)
[2019-09-30 09:35] LABS: CALCIUM, SERUM 10.4 mg/dL (8.5-10.1); CARBON DIOXIDE 24 mmol/L (21-32); CHLORIDE 107 mmol/L (98-107); CREATININE 3.9 mg/dL (0.6-1.3); GLUCOSE 209 mg/dL (74-106); POTASSIUM 4.2 mmol/L (3.5-5.1); SODIUM SERUM 148 mmol/L (136-145)
[2019-09-30 09:37] LABS: UREA NITROGEN, BLOOD 90 mg/dL (7-18)
--- NOTE | 2019-09-30 13:09 | NUR ---
Son at bedside asking about GI consult followup. Dr. Sevilla made aware, awaiting for his response. Dr. Brown informed that per son pt hasn't seen by Dr. Sevilla & concerned about pt being NPO for days now. Per MD, she already notified Dr. Sevilla but she will follow up. MD ordered to start pt on clear liquid diet. Son updated.
[2019-09-30] MEDS: PHENYLEPHRINE 80 MG in IV D5W 250 ML IV PRN (15:38)
[2019-09-30] MEDS ORDERED: ALTEPLASE CATHFLO 2 MG/VIAL IV ONE (17:30)
--- NOTE | 2019-09-30 18:40 | NUR ---
ICU CLOSING RN NOTES Pt resting on her bed at this time, not in any distress, still confused. No SOB while on NC at 2lpm. Remains controlled Afib on telemonitor. RIGOBERTO PICC line kept patent & intact w/ no s/sx of infection/infiltration noted w/ Gael drip x 30 mcg infusing well. R arm precaution observed for SARAH AVF. L femoral HD cath in place, dressing changed by HD RN Hermilo, 1L output was taken (titrated Gael drip accordingly). B soft wrist restraints kept on d/t episode of pulling out equipment. Safety precaution kept in place at all times w/ bed in lowest & locked pos. Call light placed w/in reach. Will endorse to PM RN for KASSY.
--- NOTE | 2019-09-30 19:15 | NUR ---
RN OPENING NOTES RECEIVED PATIENT IN BED, AWAKE, A/OX1, TAIWANESE SPEAKING. ON TELE MONITOR CONTROLLED AFIB WITH HR 90'S. ON OXYGEN 2L VIA NASAL CANNULA, NO SOB OR RESPIRATORY DISTRESS NOTED, SATURATING 99% AT THE MOMENT. ON BILATERAL SOFT WRIST RESTRAINTS FOR PT SAFETY; WILL VISUALLY CHECK PT PER PROTOCOL. IV SITE RIGOBERTO PICC, FLUSHING AND PATENT, YOVANY RUNNING AT 30MCG. LEFT FEM HD CATH AND RIGHT AVF NOTED, BOTH INTACT. SAFETY MEASURES IN PLACE; CALL LIGHT WITHIN REACH, SIDE RAILS UP X2, HOB ELEVATED, BED LOCKED AND IN LOW POSITION. WILL CONT TO MONITOR PT CLOSELY.
[2019-10-01] VITALS (86 sets, daily range): BP systolic 54–142; BP diastolic 21–73
--- NOTE | 2019-10-01 01:18 | NUR ---
RECEIVED THE PT REPORT FROM NANCY BALES. PT AWAKE, ALERT, OXYGEN 2L VIA NASAL CANNULA. SAT 98%, NO ACUTE DISTRESS NOTED. WHIZZER OPERATOR SHOWING AFIB, CONTROLLED. HOB ELEVATED. ROBINSON SOFT WRIST RESTRAINT CHECKED AND RELEASED. NO INJURY OR REDNESS NOTED. IV LT UPPER ARM PICC LINE, IV YOVANY 30MCG/MIN. RT FEMORAL HD CATH, AND RT HAND AV FISTULA. WILL CONTINUE TO MONITOR
[2019-10-01] MEDS: ALBUTEROL HALF STRENGTH 1.25 MG/3 ML VIAL.NEB NEB SCH ×6 (03:51→23:14)
[2019-10-01 04:27] LABS: BASOPHILS # (AUTO) 0.1 /CMM (0.0-0.2); BASOPHILS % (AUTO) 0.3 % (0.0-2.0); HEMATOCRIT 25 % (33-45); HEMOGLOBIN 7.9 g/dL (11.5-14.8); LYMPHOCYTES # (AUTO) 0.7 /CMM (0.8-4.8); LYMPHOCYTES % (AUTO) 3.1 % (20.0-44.0); MEAN CORPUSCULAR HGB CONC 32 g/dl (31.0-36.0); MEAN CORPUSCULAR VOLUME 92 fL (82-100); MONOCYTES # (AUTO) 1.5 /CMM (0.1-1.30); MONOCYTES % (AUTO) 6.3 % (2.0-12.0); NEUTROPHILS # (AUTO) 21.8 /CMM (1.8-8.9); NEUTROPHILS % (AUTO) 90.3 % (43.0-81.0); PLATELET COUNT (AUTO) 147 /CMM (150-450); RED BLOOD CELL COUNT(AUTO) 2.68 MIL/uL (4.0-5.2); WHITE BLOOD COUNT (AUTO) 24.2 K/uL (4.3-11.0)
--- NOTE | 2019-10-01 04:31 | NUR ---
AG SERVICE MANAGER. AM CARE, ORAL CARE, BED BATH GIVEN. LINEN CHANGED. REMAINING SAME OXYGEN TOLERATED WELL. SAT 98%, NO ACUTE DISTRESS NOTED. QUALITY CONTROL TESTER SHOWING A FIB. ROBINSON SOFT WRIST RESTRAINT CHECKED AND RELEASED. NO INJURY OR REDNESS NOTED. HOB ELEVATED, LT UPPER ARM PICC LINE YOVANY 20MCG/MIN. TURN AND REPOSITION Q2H. WILL CONTINUE TO MONITOR VITALS.
[2019-10-01 04:44] LABS: CALCIUM, SERUM 10.4 mg/dL (8.5-10.1); CARBON DIOXIDE 31 mmol/L (21-32); CHLORIDE 107 mmol/L (98-107); CREATININE 2.8 mg/dL (0.6-1.3); GLUCOSE 136 mg/dL (74-106); MAGNESIUM 2.2 mg/dL (1.8-2.4); POTASSIUM 3.9 mmol/L (3.5-5.1); SODIUM SERUM 144 mmol/L (136-145); UREA NITROGEN, BLOOD 51 mg/dL (7-18)
[2019-10-01] MEDS: PANTOPRAZOLE 40 MG VIAL IV SCH ×2 (05:53→17:50)
--- NOTE | 2019-10-01 07:10 | NUR ---
ICU INITIAL RN NOTES Rec'd pt awake on bed, not in any distress, A/O x 1. On NC at 2lpm, no SOB. Controlled Afib on telemonitor. Has RIGOBERTO PICC line w/ Gael drip x 20 mcg infusing well. Has R AVF, arm precaution noted. Has L femoral HD cath in place. Has B soft wrist restraints on d/t episode of pulling out equipment. Safety precaution in place w/ bed in lowest & locked pos. Call light placed w/in reach. Will cont to monitor & attend pt needs.
[2019-10-01] MEDS: INSULIN REGULAR, HUMAN 100 UNIT/ML 3 ML VIAL SQ PRN ×4 (07:54→21:53)
[2019-10-01] MEDS: BLOOD SUGAR DIAGNOSTIC 1 EACH STRIP IN SCH ×4 (07:54→21:50)
[2019-10-01] MEDS: MIDODRINE HCL (5MG) 5 MG TABLET PO SCH ×3 (08:26→17:46)
[2019-10-01] MEDS: CLOTRIMAZOLE 1% 15 GM TUBE TP SCH ×2 (08:26→17:46)
[2019-10-01] MEDS: HYDROCORTISONE SOD SUCCINATE 100 MG/2 ML VIAL IV SCH ×3 (08:26→17:46)
[2019-10-01] MEDS: ATORVASTATIN 40 MG TABLET PO SCH (08:26)
[2019-10-01] MEDS: MEROPENEM 500 MG in IV NS 0.9% 50 ML IV SCH (08:26)
[2019-10-01] MEDS: Z GUARD REMEDY 2 OZ OINT TP PRN (08:27)
[2019-10-01] MEDS: FUROSEMIDE 40 MG TABLET PO SCH (08:27)
--- NOTE | 2019-10-01 11:15 | NUR ---
Pt seen & examined by Dr. Queen, updated about status.
--- NOTE | 2019-10-01 12:30 | NUR ---
Pt seen & examined by Mehdi MULTI NEEDLE MACHINE OPERATOR, updated about pt status.
--- NOTE | 2019-10-01 18:47 | NUR ---
ICU CLOSING RN NOTES Pt resting on her bed at this time, not in any distress. No SOB while on NC at 2lpm. Remains controlled Afib on telemonitor. RIGOBERTO PICC line kept patent & intact w/ no s/sx of infection/infiltration noted. Gael drip off at this time. R arm precaution observed for SARAH AVF. L femoral HD cath in place. B soft wrist restraints kept on d/t episode of pulling out equipment. Safety precaution kept in place at all times w/ bed in lowest & locked pos. Call light placed w/in reach. Will endorse to PM RN for KASSY.
--- NOTE | 2019-10-01 19:15 | NUR ---
RN OPENING NOTES RECEIVED PATIENT IN BED SLEEPING, BUT EASY TO AROUSE. A/OX1, SAMOAN SPEAKING. ON TELE MONITOR CONTROLLED AFIB WITH HR 70'S. ON OXYGEN 2L VIA NASAL CANNULA, NO SOB OR RESPIRATORY DISTRESS NOTED, SATURATING 99% AT THE MOMENT. ON BILATERAL SOFT WRIST RESTRAINTS FOR PT SAFETY; WILL VISUALLY CHECK PT PER PROTOCOL. IV SITE RIGOBERTO PICC, FLUSHING AND PATENT, YOVANY RUNNING AT 30MCG. LEFT FEM HD CATH AND RIGHT AVF NOTED, BOTH INTACT. SAFETY MEASURES IN PLACE; CALL LIGHT WITHIN REACH, SIDE RAILS UP X2, HOB ELEVATED, BED LOCKED AND IN LOW POSITION. WILL CONT TO MONITOR PT CLOSELY.
[2019-10-02] VITALS (91 sets, daily range): BP systolic 64–151; BP diastolic 15–81
[2019-10-02] MEDS: ALBUTEROL HALF STRENGTH 1.25 MG/3 ML VIAL.NEB NEB SCH ×6 (03:14→23:17)
[2019-10-02 04:39] LABS: BASOPHILS % (AUTO) 0.2 % (0.0-2.0); HEMATOCRIT 25 % (33-45); LYMPHOCYTES # (AUTO) 0.9 /CMM (0.8-4.8); LYMPHOCYTES % (AUTO) 3.8 % (20.0-44.0); MEAN CORPUSCULAR HGB CONC 32 g/dl (31.0-36.0); MEAN CORPUSCULAR VOLUME 93 fL (82-100); MONOCYTES % (AUTO) 3.8 % (2.0-12.0); NEUTROPHILS % (AUTO) 92.2 % (43.0-81.0); PLATELET COUNT (AUTO) 171 /CMM (150-450); RED BLOOD CELL COUNT(AUTO) 2.67 MIL/uL (4.0-5.2)
[2019-10-02 04:43] LABS: CALCIUM, SERUM 9.6 mg/dL (8.5-10.1); CARBON DIOXIDE 27 mmol/L (21-32); CHLORIDE 104 mmol/L (98-107); CREATININE 3.8 mg/dL (0.6-1.3); GLUCOSE 149 mg/dL (74-106); POTASSIUM 4.1 mmol/L (3.5-5.1); SODIUM SERUM 141 mmol/L (136-145); UREA NITROGEN, BLOOD 65 mg/dL (7-18)
[2019-10-02] MEDS: PANTOPRAZOLE 40 MG VIAL IV SCH ×2 (06:03→17:33)
--- NOTE | 2019-10-02 07:11 | NUR ---
RN CLOSING NOTES PATIENT IN BED SLEEPING, BUT EASY TO AROUSE. A/OX1-2, DIVEHI SPEAKING. ON TELE MONITOR CONTROLLED AFIB WITH HR 70'S. ON OXYGEN 2L VIA NASAL CANNULA, NO SOB OR RESPIRATORY DISTRESS NOTED, SATURATING 96% AT THE MOMENT. NO SOB AND RESPIRATORY DISTRESS NOTED. ON BILATERAL SOFT WRIST RESTRAINTS FOR PT SAFETY; VISUALLY CHECKED PT PER PROTOCOL. IV SITE RIGOBERTO PICC, FLUSHING AND PATENT, LEFT FEM HD CATH AND RIGHT AVF NOTED, BOTH INTACT. YOVANY INFUSED SINCE 4AM, PT TOLERATING WELL. ALL MD ORDERS ATTENDED, ALL NEEDS ANTICIPATED AND MET. SAFETY MEASURES MAINTAINED; CALL LIGHT WITHIN REACH, SIDE RAILS UP X2, HOB ELEVATED, BED LOCKED AND IN LOW POSITION. ENDORSED TO AM RN FOR KASSY.
--- NOTE | 2019-10-02 07:12 | NUR ---
ICU INITIAL RN NOTES Rec'd pt awake on bed, not in any distress, A/O x 1. On NC at 2lpm, no SOB. Controlled Afib on telemonitor. Has RIGOBERTO PICC line w/ Gael drip off since 4am per report. Has R AVF, arm precaution noted. Has L femoral HD cath in place. Has B soft wrist restraints on d/t episode of pulling out equipment. Safety precaution in place w/ bed in lowest & locked pos. Call light placed w/in reach. Will cont to monitor & attend pt needs.
[2019-10-02] MEDS: BLOOD SUGAR DIAGNOSTIC 1 EACH STRIP IN SCH ×4 (08:00→22:33)
[2019-10-02] MEDS: INSULIN REGULAR, HUMAN 100 UNIT/ML 3 ML VIAL SQ PRN ×4 (08:01→22:43)
[2019-10-02] MEDS: CLOTRIMAZOLE 1% 15 GM TUBE TP SCH ×2 (08:23→17:33)
[2019-10-02] MEDS: HYDROCORTISONE SOD SUCCINATE 100 MG/2 ML VIAL IV SCH ×3 (08:23→17:33)
[2019-10-02] MEDS: FUROSEMIDE 40 MG TABLET PO SCH (08:23)
[2019-10-02] MEDS: MIDODRINE HCL (5MG) 5 MG TABLET PO SCH ×3 (08:23→17:33)
[2019-10-02] MEDS: ATORVASTATIN 40 MG TABLET PO SCH (08:23)
[2019-10-02] MEDS: Z GUARD REMEDY 2 OZ OINT TP PRN (08:24)
--- NOTE | 2019-10-02 09:30 | NUR ---
Per Dr. Garcia, pt will have HD today.
--- NOTE | 2019-10-02 09:48 | NUR ---
Pt seen & examined by TENA Harding, okay to downgrade to Tele.
--- NOTE | 2019-10-02 16:30 | NUR ---
Per Mehdi TANNING SOLUTION MAKER, may advance diet to full liquid diet + ensure clear TID.
--- NOTE | 2019-10-02 17:00 | NUR ---
Pt had HD today w/ no fluid taken, + 600 cc c/o Elizabet BALES.
[2019-10-02] MEDS: ENSURE CLEAR 237 ML LIQUID (MIX BERRY) PO SCH (17:33)
--- NOTE | 2019-10-02 18:24 | NUR ---
ICU CLOSING RN NOTES Pt resting on her bed at this time, not in any distress. No SOB while on NC at 2lpm. Remains controlled Afib on telemonitor. RIGOBERTO PICC line kept patent & intact w/ no s/sx of infection/infiltration noted. R arm precaution observed for SARAH AVF. L femoral HD cath in place. B soft wrist restraints kept on d/t episode of pulling out equipment. Safety precaution kept in place at all times w/ bed in lowest & locked pos. Call light placed w/in reach. Will endorse to PM RN for KASSY.
--- NOTE | 2019-10-02 20:00 | NUR ---
TIP OUT WORKER - NOTES - Pt in bed at this time, not in any distress. No SOB while on NC at 2lpm. Remains controlled Afib on telemonitor. RIGOBERTO PICC line kept patent & intact w/ no s/sx of infection/infiltration noted. R arm precaution observed for SARAH AVF. L femoral HD cath in place. B soft wrist restraints kept on d/t episode of pulling out equipment. Safety precaution kept in place at all times w/ bed in lowest & locked pos. Call light placed w/in reach. Will continue to monitor
[2019-10-03] VITALS (28 sets, daily range): BP systolic 90–150; BP diastolic 31–78
[2019-10-03] MEDS: ALBUTEROL HALF STRENGTH 1.25 MG/3 ML VIAL.NEB NEB SCH ×6 (03:32→23:28)
[2019-10-03 04:48] LABS: BASOPHILS % (AUTO) 0.1 % (0.0-2.0); HEMATOCRIT 22 % (33-45); HEMOGLOBIN 7.3 g/dL (11.5-14.8); LYMPHOCYTES # (AUTO) 0.6 /CMM (0.8-4.8); LYMPHOCYTES % (AUTO) 3.6 % (20.0-44.0); MEAN CORPUSCULAR HGB CONC 32 g/dl (31.0-36.0); MEAN CORPUSCULAR VOLUME 94 fL (82-100); MONOCYTES # (AUTO) 0.5 /CMM (0.1-1.30); NEUTROPHILS # (AUTO) 16.1 /CMM (1.8-8.9); NEUTROPHILS % (AUTO) 93.3 % (43.0-81.0); PLATELET COUNT (AUTO) 152 /CMM (150-450); WHITE BLOOD COUNT (AUTO) 17.3 K/uL (4.3-11.0)
[2019-10-03 04:57] LABS: CALCIUM, SERUM 9.5 mg/dL (8.5-10.1); CARBON DIOXIDE 29 mmol/L (21-32); CHLORIDE 103 mmol/L (98-107); GLUCOSE 121 mg/dL (74-106); POTASSIUM 3.7 mmol/L (3.5-5.1); SODIUM SERUM 141 mmol/L (136-145); UREA NITROGEN, BLOOD 50 mg/dL (7-18)
--- NOTE | 2019-10-03 06:30 | NUR ---
RN NOTES, RECEIVED PATIENT FROM ICU VIA BED, ACCOMPANIED BY PRIMARY NURSE ERIN RN, AND CHARGE NURSE IN STABLE CONDITION WITH VS 97.9, 126/45, 73, 99% AT 2LPM VIA NC, 0/10, BREATHING EVEN AND UNLABORED, NO S/S OF SOB/ACUTE DISTRESS NOTED, A/O TO SELF, HEBREW SPEAKING, RIGOBERTO PIC LINE AND LEFT FEMORAL CATH FOR HD INTACT, DRY AND CLEAN, REPOSITIONED PATIENT AT THIS TIME, ON BILATERAL SOFT WRIST RESTRAINS, CIRCULATION WNL, NO CIRCULATION COMPROMISED, WILL ENDORSE PATIENT TO ONCOMING NURSE FOR CONTINUITY OF CARE.
--- NOTE | 2019-10-03 06:30 | NUR ---
RN NOTES, AFIB CONTROLLED WITH PVC IN TELE MONITOR, WITH HR IN 80S AT THIS TIME.
[2019-10-03] MEDS: PANTOPRAZOLE 40 MG VIAL IV SCH ×2 (06:47→18:45)
[2019-10-03] MEDS: BLOOD SUGAR DIAGNOSTIC 1 EACH STRIP IN SCH ×4 (07:58→22:09)
[2019-10-03] MEDS: FUROSEMIDE 40 MG TABLET PO SCH (09:07)
[2019-10-03] MEDS: HYDROCORTISONE SOD SUCCINATE 100 MG/2 ML VIAL IV SCH ×3 (09:07→17:39)
[2019-10-03] MEDS: ATORVASTATIN 40 MG TABLET PO SCH (09:08)
[2019-10-03] MEDS: MIDODRINE HCL (5MG) 5 MG TABLET PO SCH ×3 (09:08→17:38)
[2019-10-03] MEDS: ENSURE CLEAR 237 ML LIQUID (MIX BERRY) PO SCH (09:09)
[2019-10-03] MEDS: CLOTRIMAZOLE 1% 15 GM TUBE TP SCH ×2 (09:19→17:39)
[2019-10-03] MEDS ORDERED: NEPRO VAN 237 ML CAN PO PRN (12:00)
[2019-10-03] MEDS: INSULIN REGULAR, HUMAN 100 UNIT/ML 3 ML VIAL SQ PRN ×3 (12:43→22:11)
--- NOTE | 2019-10-03 19:35 | NUR ---
1934 NOTED PATIENT COMPLAINING OF DIFFICULTY BREATHING. ON NC WITH O2 SATURATION IN THE HIGH 80S- LOW 90S. PATIENT VERY ANXIOUS TRYING TO REMOVE HER OXYGEN. PLACED PATIENT ON SIMPLE FACE MASK AT 10 LPM. NOTED O2 SATURATION IMPROVED TO 92% BUT PATIENT STILL VERBALIZING THAT SHE CANNOT BREATHE AND STILL VERY ANXIOUS. FAMILY MEMBERS AT BEDSIDE AND AWARE OF PATIENT CONDITION. HOB ELEVATED FOR MAXIMUM OXYGENATION.
--- NOTE | 2019-10-03 19:40 | NUR ---
1939 DR. CERVANTES WAS PAGED AND NOTIFIED OF PATIENT'S CONDITION WITH ORDER TO PUT PATIENT ON THE BIPAP PREVIOUSLY ORDERED AND TO GIVE ATIVAN ORDERED. ORDER NOTED AND CARRIED OUT. FAMILY MEMBERS NOTIFIED OF ORDERS, RT AT BEDSIDE GIVING BREATHING TREATMENT ORDERED.
[2019-10-03] MEDS: LORAZEPAM INJ 2 MG/ML VIAL IV PRN (19:43)
--- NOTE | 2019-10-03 19:45 | NUR ---
1944 DR. CERVANTES MADE AWARE THAT PATIENT MUST BE TRANSFERRED TO ICU DUE TO RESCUE BIPAP ORDER AND AGREEED. HE ALSO ORDERED FOR STAT ABG. RT MADE AWARE OF ABG ORDER.
--- NOTE | 2019-10-03 20:01 | NUR ---
2000 TRANSFERRED TO ICU ON ACLS PROTOCOL ACCOMPANIED BY FAMILY MEMBERS.
--- NOTE | 2019-10-03 20:14 | NUR ---
RN NOTES, PATIENT NOW IN ICU 258 ROOM, ON BIPAP SATURATION 100% AT THIS TIME, WITH SETTING PER RT, TOLERATED WELL, HOB ELEVATED TO FACILITATE BREATHING, VS 83, 16, 122/56, 100%, 98.00, 0/10.
--- NOTE | 2019-10-03 20:27 | NUR ---
RT PER MD ORDERS PT PLACED ON BIPAP WITH NOTED SETTING DUE TO RESP DISTRESS. PT TRANSFERRED TO ICU WITH NO COMPLICATIONS. PT SHOWING IMPROVEMENT AND TOLERATING SETTING WELL. BIPAP TO [facility] [place], [facility] AT [facility]. WILL CONTINUE TO MONITOR. Addendum: 10/03/19 at 2030 by NACHO GIBSON RT Amended: Links added.
[2019-10-03 22:27] LABS: ABG OXYGEN SATURATION 98.7 % (92.0-98.5); ABG PCO2 40.9 mmHg (35.0-45.0); ABG PH 7.385 (7.350-7.450); ABG PO2 242.3 mmHg (75.0-100.0); AaDO2 429.8 mmHg; COHb 0.3 % (0.5-1.5); MetHb 0.5 % (0.0-1.5); O2Hb 97.9 % (94.0-97.0); PEEP,BG 5 cm H2O; SITE, ABG Left Radial; VENT MODE, BG ST 20/5 R8 100%
[2019-10-04] VITALS (30 sets, daily range): BP systolic 90–149; BP diastolic 30–110
[2019-10-04] MEDS: PANTOPRAZOLE 40 MG VIAL IV SCH ×2 (06:30→17:49)
[2019-10-04 07:54] LABS: BASOPHILS % (AUTO) 0.2 % (0.0-2.0); HEMATOCRIT 23 % (33-45); HEMOGLOBIN 7.5 g/dL (11.5-14.8); LYMPHOCYTES # (AUTO) 0.4 /CMM (0.8-4.8); MEAN CORPUSCULAR HGB CONC 33 g/dl (31.0-36.0); MEAN CORPUSCULAR VOLUME 95 fL (82-100); MONOCYTES # (AUTO) 0.5 /CMM (0.1-1.30); MONOCYTES % (AUTO) 2.9 % (2.0-12.0); NEUTROPHILS # (AUTO) 17.3 /CMM (1.8-8.9); NEUTROPHILS % (AUTO) 94.9 % (43.0-81.0); PLATELET COUNT (AUTO) 151 /CMM (150-450); RED BLOOD CELL COUNT(AUTO) 2.39 MIL/uL (4.0-5.2); WHITE BLOOD COUNT (AUTO) 18.2 K/uL (4.3-11.0)
--- NOTE | 2019-10-04 08:00 | NUR ---
ICU/RN INITIAL NOTES,AM RECEIVED BEDSIDE REPORT FROM NIGHT NURSE. PT ALERT, AWAKE, CONFUSED. PT WAS ON BIPAP OVERNIGHT, NOW PLACED ON 2LITERS NASAL CANULA, TOLERATING WELL, NO DISTRESS. PT ELIANA ON TELE. RIGOBERTO PICC LINE PATENT AND INTACT, NO S/S OF INFECTION OR INFILTRATION NOTED. HD CATH IN PLACE, DRESSING C/D/I. VSS, PT AFEBRILE. ALL NEEDS WILL BE ATTENDED TO, SAFETY MEASURES TAKEN, BED IN LOW POSITION, SIDE RAILS UP, CALL LIGHT WITHIN REACH. WILL CONTINUE CARE.
[2019-10-04] MEDS: BLOOD SUGAR DIAGNOSTIC 1 EACH STRIP IN SCH ×4 (08:11→22:45)
[2019-10-04] MEDS: ATORVASTATIN 40 MG TABLET PO SCH (08:14)
[2019-10-04] MEDS: HYDROCORTISONE SOD SUCCINATE 100 MG/2 ML VIAL IV SCH ×2 (08:14→17:49)
[2019-10-04] MEDS: FUROSEMIDE 40 MG TABLET PO SCH (08:17)
[2019-10-04] MEDS: CLOTRIMAZOLE 1% 15 GM TUBE TP SCH ×2 (08:17→17:49)
[2019-10-04] MEDS: MIDODRINE HCL (5MG) 5 MG TABLET PO SCH ×3 (08:18→17:49)
[2019-10-04] MEDS: ALBUTEROL HALF STRENGTH 1.25 MG/3 ML VIAL.NEB NEB SCH ×5 (09:08→22:58)
[2019-10-04] MEDS ORDERED: HYDROCORTISONE SOD SUCCINATE 100 MG/2 ML VIAL IV SCH (10:00)
--- NOTE | 2019-10-04 10:29 | NUR ---
ICU/RN: PROTONIX GIVEN BY NIGHT NURSE. CHARTED ON PAPER MAR
[2019-10-04] MEDS: INSULIN REGULAR, HUMAN 100 UNIT/ML 3 ML VIAL SQ PRN ×2 (12:07→22:35)
--- NOTE | 2019-10-04 15:10 | NUR ---
ICU/RN: HD STARTED. VSS, ON NASAL CANULA, NO DISTRESS. WILL CONTINUE TO MONITOR
--- NOTE | 2019-10-04 17:50 | NUR ---
ICU/RN: HD DONE. 300ML OUT. VSS. NO DISTRESS. WILL CONTINUE TO MONITOR
--- NOTE | 2019-10-04 18:46 | NUR ---
ICU/RN: REPORT WILL BE ENDORSED TO 3W NURSE. PT WILL BE TRANSFERRED POST SHIFT CHANGE. PT ON 2LITERS NASAL CANULA, NO DISTRESS. UNCONTROLLED A.FIB ON TELE. ALL NEEDS ATTENDED TO, SAFETY MEASURES TAKEN, BED IN LOW POSITION, SIDE RAILS UP, CALL LIGHT WITHIN REACH. HD DONE, 300ML OUT.
--- NOTE | 2019-10-04 19:00 | NUR ---
TELE TD NOTE: RECEIVED ENDORSEMENT FROM ICU NURSE AND ENDORSE TO NII JORGENSEN FOR KASSY.
--- NOTE | 2019-10-04 19:30 | NUR ---
VIKKI NOTE RECEIVED PATIENT FROM ICU. PATIENT WAS ANXIOUS WITH A O2 SAT OF 93% WITH INCREASE O2 SAT OF 98%. PUT HER ON A MASK WITH 10L BUT HR WAS ELEVATED IN THE 140'S. MICK HOANG DOT COMPLIANCE COORDINATOR. WILL CONTINUE TO MONITOR PATIENT.
--- NOTE | 2019-10-04 20:15 | NUR ---
RN NOTE INFORMED DR ESQUEDA REGARDING PATIENT GASPING FOR AIR. PUT PATIENT ON 10L SIMPLE MASK. WITH HR IN THE 130'S. PATIENT CONTINUES TO STAY ANXIOUS. GAVE ORDER TO TRANSFER PATIENT TO ICU.
--- NOTE | 2019-10-04 21:15 | NUR ---
RN NOTE TRANSFERRED PATIENT TO ICU. WAS PUT ON BIPAP. PATIENT WAS STABLE. GAVE REPORT TO YEISON IN ICU
--- NOTE | 2019-10-04 21:20 | NUR ---
RN NOTES, RECEIVED PATIENT FROM VIKKI, RECEIVED REPORTED AT BEDSIDE FROM JAMEEL, PATIENT WITH SOB/ANXIOUS BUT VS AT THIS TIME 98.1, 136/76, 109, 24, 99 VIA SIMPLE MASK 10L, 0/10, PATIENT PLACED IN BIPAP SETTING BY RT, WITH 100% AFTER PLACED ON BIPAP, AND HR DECREASED TO 80S IN THE FIRST 5MIN, WITH ORDER FOR LASIX IV PUSH X1 PER RN, WILL F/U AND ADMINISTER ORDERED. AFTER PLACED PATIENT IN BIPAP, APPEARS CALM, WITH NO RESPIRATORY DISTRESS, NOW IN ICU 258 ROOM, HOB ELEVATED TO FACILITATE BREATHING, WILL CONTINUE TO MONITOR CLOSELY.
[2019-10-04] MEDS ORDERED: LEVALBUTEROL HCL NEB 1.25 MG/0.5 ML VIAL.NEB NEB PRN (21:30)
[2019-10-04] MEDS ORDERED: METOPROLOL TARTRATE INJ 5 MG/5 ML AMPUL IVP PRN (21:30)
[2019-10-04] MEDS ORDERED: FUROSEMIDE 40 MG/4 ML VIAL IV SCH (22:25)
[2019-10-04] MEDS: LEVOFLOXACIN 250 MG /D5W 50 ML 250 MG in PREMIX 1 EA IV SCH (22:45)
[2019-10-04 22:47] LABS: ABG BASE EXCESS 0.9 mmol/L; ABG OXYGEN SATURATION 97.7 % (92.0-98.5); ABG PCO2 43.9 mmHg (35.0-45.0); ABG PO2 143.8 mmHg (75.0-100.0); AaDO2 235.7 mmHg; COHb 0.2 % (0.5-1.5); MetHb 0.6 % (0.0-1.5); O2Hb 96.9 % (94.0-97.0); PEEP,BG 5 cm H2O; SITE, ABG Left Radial; VENT MODE, BG ST 20/5 R8 60%
[2019-10-05] VITALS (24 sets, daily range): BP systolic 98–161; BP diastolic 31–101
[2019-10-05] MEDS: ALBUTEROL HALF STRENGTH 1.25 MG/3 ML VIAL.NEB NEB SCH ×6 (03:20→23:59)
--- NOTE | 2019-10-05 03:27 | NUR ---
TAKEN OFF BIPAP AND PLACED ON 2L NC. RN NOTIFIED. WILL CONTINUE TO MONITOR. BIPAP S/B.
--- NOTE | 2019-10-05 03:30 | NUR ---
RN NOTES, PATIENT OFF FORM BIPAP AND ON 2LPM VIA NC, BREATHING EVEN AND UNLABORED NO SOB/ACUTE DISTRESS NOTED AT THIS TIME, WITH OPTIMAL O2 SATURATION >98%, WILL CONTINUE TO MONITOR CLOSELY.
[2019-10-05 04:26] LABS: BASOPHILS % (AUTO) 0.2 % (0.0-2.0); HEMATOCRIT 23 % (33-45); HEMOGLOBIN 7.5 g/dL (11.5-14.8); LYMPHOCYTES # (AUTO) 0.5 /CMM (0.8-4.8); LYMPHOCYTES % (AUTO) 2.5 % (20.0-44.0); MEAN CORPUSCULAR HGB CONC 32 g/dl (31.0-36.0); MEAN CORPUSCULAR VOLUME 96 fL (82-100); MONOCYTES # (AUTO) 0.7 /CMM (0.1-1.30); MONOCYTES % (AUTO) 3.5 % (2.0-12.0); NEUTROPHILS # (AUTO) 17.5 /CMM (1.8-8.9); NEUTROPHILS % (AUTO) 93.8 % (43.0-81.0); PLATELET COUNT (AUTO) 136 /CMM (150-450); RED BLOOD CELL COUNT(AUTO) 2.44 MIL/uL (4.0-5.2); WHITE BLOOD COUNT (AUTO) 18.7 K/uL (4.3-11.0)
[2019-10-05 04:40] LABS: CALCIUM, SERUM 9.7 mg/dL (8.5-10.1); CARBON DIOXIDE 28 mmol/L (21-32); CHLORIDE 105 mmol/L (98-107); CREATININE 3.2 mg/dL (0.6-1.3); GLUCOSE 113 mg/dL (74-106); MAGNESIUM 2.1 mg/dL (1.8-2.4); PHOSPHORUS 5.7 mg/dL (2.5-4.9); POTASSIUM 4.4 mmol/L (3.5-5.1); SODIUM SERUM 141 mmol/L (136-145); UREA NITROGEN, BLOOD 59 mg/dL (7-18)
[2019-10-05] MEDS: PANTOPRAZOLE 40 MG VIAL IV SCH ×2 (06:37→17:37)
--- NOTE | 2019-10-05 07:00 | NUR ---
RN NOTES, RECEIVED PATIENT IN BED AWAKE A/O TO SELF, BREATHING EVEN AND UNLABORED, NO SOB/ACUTE DISTRESS NOTED, ON 2LPM VIA NC, WITH 100% AT THIS TIME, WITH NO RESPIRATORY DISTRESS, HOB ELEVATED, NO SIGNIFICANT CHANGE IN CONDITION DURING THE NIGHT, OFF FROM BIPAP SINCE 329 WITH OPTIMAL O2 SAT, WILL ENDORSE CONTINUITY OF CARE TO ONCOMING NURSE. Addendum: 10/05/19 at 2034 by YEISON CARVALHO RN PATIENT TILL BE ENDORSED TO ONCOMING SHIFT
[2019-10-05] MEDS: INSULIN REGULAR, HUMAN 100 UNIT/ML 3 ML VIAL SQ PRN ×4 (07:39→21:58)
[2019-10-05] MEDS: BLOOD SUGAR DIAGNOSTIC 1 EACH STRIP IN SCH ×4 (07:39→21:53)
--- NOTE | 2019-10-05 08:03 | NUR ---
o2 flow decreased from 2 lpm to 1 lpm o2 flow via nasal cannula due to spo2 100% on 2 liter. rn notified on changes. Addendum: 10/05/19 at 0804 by DAVIE REARDON RT Amended: Links added.
[2019-10-05] MEDS: HYDROCORTISONE SOD SUCCINATE 100 MG/2 ML VIAL IV SCH (08:40)
[2019-10-05] MEDS: ATORVASTATIN 40 MG TABLET PO SCH (08:41)
[2019-10-05] MEDS: CLOTRIMAZOLE 1% 15 GM TUBE TP SCH ×2 (08:41→17:20)
[2019-10-05] MEDS: MIDODRINE HCL (5MG) 5 MG TABLET PO SCH ×3 (08:41→17:19)
[2019-10-05 09:00] LABS: ABG BASE EXCESS -0.3 mmol/L; ABG PCO2 36.8 mmHg (35.0-45.0); ABG PH 7.429 (7.350-7.450); ABG PO2 62.5 mmHg (75.0-100.0); AaDO2 64.8 mmHg; COHb 0.6 % (0.5-1.5); MetHb 0.4 % (0.0-1.5); O2Hb 90.1 % (94.0-97.0); SITE, ABG Left Radial; VENT MODE, BG NASAL CANNULA
[2019-10-05] MEDS ORDERED: FUROSEMIDE 40 MG/4 ML VIAL IV SCH (09:00)
--- NOTE | 2019-10-05 09:30 | NUR ---
PT SON CARLA CALLED TO BE WITH PT. PT VERY ANXIOUS TRYING TO GET OUT OF BED
--- NOTE | 2019-10-05 11:20 | NUR ---
BEDBATH GIVEN ORAL CARE DONE. PT SON AT BEDSIDE
--- NOTE | 2019-10-05 14:04 | NUR ---
PT. IS AWAKE AND ALERT BREATHING 38 TO 44 BPM REFUSED GINGER. RN NOTIFIED Addendum: 10/05/19 at 1404 by DAVIE REARDON RT Amended: Links added.
--- NOTE | 2019-10-05 14:26 | NUR ---
pt. placed into bipap due to lindsay WOB Addendum: 10/05/19 at 1426 by DAVIE REARDON RT Amended: Links added.
[2019-10-05] MEDS ORDERED: IV NS 0.9% 250 ML IV PRN (17:30)
--- NOTE | 2019-10-05 17:50 | NUR ---
patient taken of bipap to eat placed on 2 ltrs nasal cannula saturating 100%
--- NOTE | 2019-10-05 18:30 | NUR ---
icu notes pt a/o x3 with confusion angolan speaking on 2ltrs n/c saturating 100% on and off bibpap throughout the day. no c/o pain bilateral wrist reatraints for pulling at lines and tubes. orders from dr burton to transfer with new bipap settings.. pt evelin be dialyzed tonight. appetite fair no episodes of n/v or hyper/hypoglycemia kept clean and dry repositioned for comfort safety and aspiration precautions in place bed in low locked position will endorse to noc
--- NOTE | 2019-10-05 19:30 | NUR ---
RN NOTES, RECEIVED PATIENT IN BED AWAKE A/O TO SELF, YELLING AT THIS TIME, BREATHING EVEN AND UNLABORED, NO SOB/ACUTE DISTRESS NOTED, ON 2LPM VIA NC, WITH 100% AT THIS TIME, NO RESPIRATORY DISTRESS, HOB ELEVATED, LEFT PICC LINE INTACT AND PATENT, DRY AND CLEAN AT THIS TIME, S/R OF BED UP, BED LOCKED AND LOWEST POSITION, WILL CONTINUE TO MONITOR CLOSELY.
--- NOTE | 2019-10-05 19:50 | NUR ---
RN NOTES, PATIENT WILL START HD AT THIS TIME STABLE VS AT THIS TIME, PATIENT PLACED ON BIPAP, ALBUMIN WILL BE ADMINISTER ORDER PER HD NURSE, WILL CONTINUE TO MONITOR PATEN CLOSELY.
[2019-10-05] MEDS: ALBUMIN 25% 25 GM in PREMIX 1 EA IV PRN (19:56)
--- NOTE | 2019-10-05 20:10 | NUR ---
RN NOTES, HEMODIALYSIS DONE AT THIS TIME, WITH 3000ML OUT AND VS AT THSI TIME, 118/60, 64, 100%, 22, 0/10, 98.1, PATIENT ON BIPAP, NO SOB/ACUTE DISTRESS NOTED AT HIS TIME, TOLERATED HD FINE, WILL CONTINUE TO MONITOR CLOSELY.
[2019-10-06] VITALS (24 sets, daily range): BP systolic 92–167; BP diastolic 21–94
[2019-10-06] MEDS: ALBUTEROL HALF STRENGTH 1.25 MG/3 ML VIAL.NEB NEB SCH ×6 (03:57→22:38)
[2019-10-06 04:28] LABS: BASOPHILS % (AUTO) 0.1 % (0.0-2.0); EOSINOPHILS % (AUTO) 0.2 % (0.0-6.0); HEMATOCRIT 21 % (33-45); LYMPHOCYTES # (AUTO) 0.8 /CMM (0.8-4.8); LYMPHOCYTES % (AUTO) 5.1 % (20.0-44.0); MEAN CORPUSCULAR HGB CONC 32 g/dl (31.0-36.0); MEAN CORPUSCULAR VOLUME 94 fL (82-100); MONOCYTES # (AUTO) 0.6 /CMM (0.1-1.30); MONOCYTES % (AUTO) 3.7 % (2.0-12.0); NEUTROPHILS # (AUTO) 13.6 /CMM (1.8-8.9); NEUTROPHILS % (AUTO) 90.9 % (43.0-81.0); PLATELET COUNT (AUTO) 117 /CMM (150-450); RED BLOOD CELL COUNT(AUTO) 2.28 MIL/uL (4.0-5.2)
[2019-10-06 04:43] LABS: CALCIUM, SERUM 9.9 mg/dL (8.5-10.1); CARBON DIOXIDE 27 mmol/L (21-32); CHLORIDE 105 mmol/L (98-107); CREATININE 3.9 mg/dL (0.6-1.3); GLUCOSE 78 mg/dL (74-106); MAGNESIUM 2.1 mg/dL (1.8-2.4); PHOSPHORUS 6.4 mg/dL (2.5-4.9); POTASSIUM 4.6 mmol/L (3.5-5.1); SODIUM SERUM 142 mmol/L (136-145); UREA NITROGEN, BLOOD 74 mg/dL (7-18)
[2019-10-06 04:44] LABS: HEMOGLOBIN 6.9 g/dL (11.5-14.8)
--- NOTE | 2019-10-06 05:05 | NUR ---
RN NOTES, RECEIVED CRITICAL RESULTS FROM LAB FOR HEMOGLOBIN 6.9 AND HEMATOCRIT 21M INFORMED MD AND RECEIVED ORDER FOR TYPE AND SCREEN AND TRANSFUSE ONE UNIT OF PRBC. NOTED AND CARRIED OUT.
[2019-10-06] MEDS: PANTOPRAZOLE 40 MG VIAL IV SCH ×2 (06:35→18:35)
--- NOTE | 2019-10-06 06:48 | NUR ---
RN NOTES, PATIENT IN BED AWAKE A/O TO SELF, STILL ON BIPAP AT HIS TIME, TOLERATED WELL, BREATHING EVEN AND UNLABORED, NO SOB/ACUTE DISTRESS NOTED, WITH 100% AT THIS TIME, WITH NO RESPIRATORY DISTRESS, HOB ELEVATED, HEMODIALYSIS LAST NIGHT WITH 3000ML OUT, NO SIGNIFICANT CHANGE IN CONDITION DURING THE NIGHT, DRY AND CLEAN, S/S OF BED UP WITH BED LOCKED AND IN LOWEST POSITION, CALL LIGHT W/I REACH, ON BILATERAL SOFT RESTRAINS, NO CIRCULATION COMPROMISED OR ABNORMALITY NOTED AT SITE, WILL ENDORSE CONTINUITY OF CARE TO ONCOMING NURSE.
[2019-10-06 06:54] LABS: LYMPHOCYTES % (MANUAL) 4 % (16-48); MONOCYTES % (MANUAL) 2 % (0-11.0); NEUTROPHILS % (MANUAL) 94 (42-76)
--- NOTE | 2019-10-06 07:30 | NUR ---
RN NOTE: Received patient in bed, awake, alert with periods of confusion. Patient is on nocturnal Bipap and she was noted with no respiratory distress. (B) soft wrist restraints were placed to prevent the patient from pulling lines and leads. HOB elevated. Bedside monitoring analyst showed controlled atrial fibrillation. (L) UA PICC line noted patent and intact with dry and clean dressing. (R) UA AV shunt was noted with (+) bruit and thrill and (L) femoral HD catheter was noted intact and dry with dry gauze dressing. Afebrile. Skin warm to touch. Bed alarmed and locked at all times. Call light within reach. Patient was closely monitored. Patient will be receiving 1 unit prbc blood transfusion today with hemodialysis per Dr. Aravind Giles.
[2019-10-06] MEDS: BLOOD SUGAR DIAGNOSTIC 1 EACH STRIP IN SCH ×4 (07:51→22:08)
--- NOTE | 2019-10-06 08:10 | NUR ---
RN NOTE: Patient refused to take the Nephro vanilla that was sent with the breakfast tray.
[2019-10-06] MEDS: CLOTRIMAZOLE 1% 15 GM TUBE TP SCH ×2 (08:18→16:05)
[2019-10-06] MEDS: MIDODRINE HCL (5MG) 5 MG TABLET PO SCH ×3 (08:25→16:03)
[2019-10-06] MEDS: ATORVASTATIN 40 MG TABLET PO SCH (08:25)
[2019-10-06] MEDS: HYDROCORTISONE SOD SUCCINATE 100 MG/2 ML VIAL IV SCH (10:00)
--- NOTE | 2019-10-06 11:24 | NUR ---
RT HHN TX NOT GIVEN SON AT BEDSIDE REFUSED. PATIENT WITH NO SOB AND CLEAR B/S.
--- NOTE | 2019-10-06 12:15 | NUR ---
RN NOTE: Patient was verbalizing that she was having shortness of breath despite having a O2 via NC 2L/min. Patient was having tachycardia HR= 120's and tachypneic RR= 39. Son was present at the bedside. Called and spoke with RT Hernandez and patient was placed back to the Bipap. Dr. Shirley was made aware of it. Will continue to monitor the patient.
--- NOTE | 2019-10-06 13:00 | NUR ---
RN NOTE: Patient was noted still with anxiety, but heart rate was back to the 70's and respiration rate 20. Patient and son were both given instruction not to remove the Bipap for it keeps the patient from having a hard time breathing. Son understood and he kept reminding the patient the importance of it.
--- NOTE | 2019-10-06 14:30 | NUR ---
RN NOTE: Patient kept verbalizing to the son that she wanted to eat and patient was stable on the bedside monitor. Bipap was removed and patient was placed back to O2 2l/min via NC saturating 98% with no respiratory distress noted. Patient's son fed the patient and she ate 75% of her lunch meal.
[2019-10-06] MEDS: INSULIN REGULAR, HUMAN 100 UNIT/ML 3 ML VIAL SQ PRN ×2 (15:05→22:30)
--- NOTE | 2019-10-06 15:30 | NUR ---
RN NOTE: Charge Nurse Kristina said that per Closing Machine Operator Krunal, the patient was cleared by Dr. Shirley to be downgraded to [facility] after hemodialysis today.
--- NOTE | 2019-10-06 16:49 | NUR ---
RN NOTE: Patient was started on hemodialysis and blood transfusion was also administered by the hemodialysis nurse Mandy. Son remained at the bedside. Patient was placed on bipap during hemodialysis to prevent the patient from getting distress.
[2019-10-06] MEDS: ALBUMIN 25% 25 GM in PREMIX 1 EA IV PRN (17:07)
--- NOTE | 2019-10-06 18:30 | NUR ---
RN NOTE: Patient finished hemodialysis and 3L of fluid was removed. Patient remained on Bipap.
--- NOTE | 2019-10-06 19:34 | NUR ---
RN NOTE: Patient was transferred to [facility] per Dr. Shirley's order and bedside report was given to NII Jung. Patient was brought down to the unit with all of her belongings and including all the medications from the patient's cassette. Patient did not eat dinner and stated "I wanted to eat dinner once I get transfer." Endorsed to NII Jung that the patient's blood sugar was checked but has not been covered yet with insulin because the patient did not eat dinner yet, but will eat right now after transfer. Called and spoke with Melyssa, son and he was informed of the patient's transfer to [facility] Room 112-1.
[2019-10-06] MEDS: LEVOFLOXACIN 250 MG /D5W 50 ML 250 MG in PREMIX 1 EA IV SCH (22:09)
[2019-10-07] VITALS: BP 141/76
[2019-10-07 04:00] VITALS: BP 137/85
[2019-10-07] MEDS: ALBUTEROL HALF STRENGTH 1.25 MG/3 ML VIAL.NEB NEB SCH ×4 (04:03→16:03)
--- NOTE | 2019-10-07 06:08 | NUR ---
CINDER PIT WORKER NOTES AWAKE & RESPONSIVE. NOT IN ANY DISTRESS. NO SOB NOTED. DENIES ANY PAIN OR DISCOMFORT AT THIS TIME. ON TELE AFIB @ 85 WITH PICC LINE PATENT & INTACT. CURRENTLY ON BIPAP WITH BILATERAL SOFT WRIST RESTRAINTS ON. AM CARE DONE. MONITORED ACCORDINGLY. CALL LIGHT WITHIN REACH. BED IN LOWEST POSITION. SR UP X 2 FOR SAFETY. WILL ENDORSE TO NEXT SHIFT.
[2019-10-07] MEDS: PANTOPRAZOLE 40 MG VIAL IV SCH ×2 (06:21→18:27)
[2019-10-07 07:04] LABS: BASOPHILS % (AUTO) 0.2 % (0.0-2.0); EOSINOPHILS % (AUTO) 0.4 % (0.0-6.0); HEMATOCRIT 26 % (33-45); HEMOGLOBIN 8.7 g/dL (11.5-14.8); LYMPHOCYTES # (AUTO) 0.5 /CMM (0.8-4.8); MEAN CORPUSCULAR HGB CONC 33 g/dl (31.0-36.0); MEAN CORPUSCULAR VOLUME 97 fL (82-100); MONOCYTES # (AUTO) 0.5 /CMM (0.1-1.30); MONOCYTES % (AUTO) 3.5 % (2.0-12.0); NEUTROPHILS # (AUTO) 12.2 /CMM (1.8-8.9); NEUTROPHILS % (AUTO) 91.9 % (43.0-81.0); PLATELET COUNT (AUTO) 111 /CMM (150-450); RED BLOOD CELL COUNT(AUTO) 2.73 MIL/uL (4.0-5.2); WHITE BLOOD COUNT (AUTO) 13.2 K/uL (4.3-11.0)
--- NOTE | 2019-10-07 07:10 | NUR ---
RN INITIAL NOTE PATIENT IN BED, AWAKE ON BIPAP. ON 2L NC, AFTER BIPAP. PORTUGUESE SPEAKING. ON TELE, AFIB AT 89. HD YESTERDAY, 3L OUT. WITH 1 UNIT PRBC. HAS A RIGHT AV SHUNT STILL MATURING. LEFT FEMORAL CATH. HAS A LEFT PICC LINE WITH 3 LUMEN. TKO. ON BILATERAL WRIST RESTRAINTS. NO COMPLAINS OF ANY PAIN NOR SOB AT THIS TIME. BED LOCKED AND IN LOWEST POSITION. CALL LIGHT WITHIN REACH. WILL CONTINUE TO MONITOR.
[2019-10-07 07:24] LABS: CARBON DIOXIDE 25 mmol/L (21-32); CHLORIDE 106 mmol/L (98-107); CREATININE 3.7 mg/dL (0.6-1.3); GLUCOSE 88 mg/dL (74-106); POTASSIUM 4.8 mmol/L (3.5-5.1); SODIUM SERUM 143 mmol/L (136-145); UREA NITROGEN, BLOOD 58 mg/dL (7-18)
[2019-10-07 08:00] VITALS: BP 142/73
--- NOTE | 2019-10-07 08:00 | NUR ---
RN NOTE PATIENT REFUSED TO HAVE SCD PUMPS ON
[2019-10-07] MEDS: BLOOD SUGAR DIAGNOSTIC 1 EACH STRIP IN SCH ×3 (08:36→18:45)
[2019-10-07] MEDS: HYDROCORTISONE SOD SUCCINATE 100 MG/2 ML VIAL IV SCH (08:37)
[2019-10-07] MEDS: ATORVASTATIN 40 MG TABLET PO SCH (08:39)
[2019-10-07] MEDS: MIDODRINE HCL (5MG) 5 MG TABLET PO SCH ×3 (08:39→18:29)
[2019-10-07 12:00] VITALS: BP_SYST 126; BP_SYST 161; BP_DIAS 64; BP_DIAS 77
[2019-10-07] MEDS: INSULIN REGULAR, HUMAN 100 UNIT/ML 3 ML VIAL SQ PRN ×2 (12:20→18:47)
[2019-10-07] MEDS: CLOTRIMAZOLE 1% 15 GM TUBE TP SCH ×2 (12:21→18:45)
--- NOTE | 2019-10-07 13:02 | NUR ---
RN NOTE SON AT BEDSIDE, REMOVED THE PATIENT'S BILATERAL WRIST RESTRAINTS. PER SON, HE DOES NOT WANT THE PATIENT TO GO TP [facility]. REQUESTED TO TALK TO WELL. ADJUNCT PROFESSOR OF [employer] MADE AWARE.
[2019-10-07 16:00] VITALS: BP_SYST 150; BP_SYST 173; BP_DIAS 70; BP_DIAS 89
--- NOTE | 2019-10-07 16:00 | NUR ---
RN NOTE PATIENT REFUSED TO HAVE PICTURES TAKEN FOR WOUND DOCUMENTATION.
--- NOTE | 2019-10-07 16:30 | NUR ---
RN NOTE RECHECKED PATIENT'S BP, 150/70
--- NOTE | 2019-10-07 17:24 | NUR ---
RN NOTE CALLED [facility] TO GIVE REPORT. TALKED TO NII PALACIOS.
[2019-10-07 18:29] VITALS: BP 158/70
--- NOTE | 2019-10-07 18:40 | NUR ---
RN NOTE GRAND DAUGHTER AT BEDSIDE. AWARE THAT [facility] [employer] [facility]ATOR TIME FOR AMBULACE IS AT [phone]. SHE SAID SHE WILL LET MR. AGUIRRE KNOW
--- NOTE | 2019-10-07 18:50 | NUR ---
RN CLOSING NOTE PATIENT IN BED, AWAKE AND ALERT. NO COMPLAINS OF ANY PAIN NOR SOB AT THIS TIME. ALL MEDS GIVEN. ALL NEEDS MET. REPOSITIONED PER PROTOCOL. REPORT GIVEN TO GRAND VELAZQUEZ. FAMILY AWARE ABOUT THE DC. BED LOCKED AND IN LOWEST POSITION. CALL LIGHT WITHIN REACH. WILL ENDORSE TO NOC SHIFT FOR KASSY
--- NOTE | 2019-10-07 19:54 | NUR ---
RECEIVED PATIENT AWAKE IN BED WITH NO DISTRESS NOTED. CALL LIGHT WITHIN REACH. NO C/O PAIN OR DISCOMFORT. PATIENT PICKED UP BY [facility]IA [facility] AND DISCHARGED TO [facility] IN STABLE CONDITION. REPORT GIVEN TO SUZANNE DURING PREVIOUS SHIFT. FAMILY AT BEDSIDE. RIGOBERTO PICC LINE REMOVED WITH TIP INTACT. PATIENT TOLERATED WELL WITH NO ACTIVE BLEEDING NOTED. SITE COVERED WITH STERIL GAUZE AND SECURED WITH TAPE. RIGHT ARM AV SHUNT INTACT WITH (+) BRUIT AND THRILL. NO SWELLING OR BLEEDING NOTED. LEFT FEMORAL PERMA CATH INTACT AND SECURED WITH STERILE DRESSING. NO ACTIVE BLEEDING, REDNESS, OR SWELLING NOTED. DISCHARGE PAPERWORK GIVEN TO [facility]. ALL BELONGINGS TAKEN WITH PATIENT.
== END 2019-10-07 19:55 | DRG 193 ==
LOC: ER 22:07 → ICU 09-19 00:38 → TELE-TD 09-23 16:41 → TELE1 09-24 09:21 → MEDSG1 09-25 12:21 → TELE1 09-27 15:51 → ICU 09-27 16:49 → TELE1 10-03 06:22 → ICU 10-03 20:01 → TELE-TD 10-04 19:11 → ICU 10-04 21:11 → TELE-TD 10-06 19:35
PROVIDERS: ADMIT Hospitalist
PROC: 5A1D70Z Performance of Urinary Filtration, Intermittent, Less than 6 Hours Per Day (ICD-10-PCS; 2019-09-19)
PROC: 5A09357 Assistance with Respiratory Ventilation, Less than 24 Consecutive Hours, Continuous Positive Airway Pressure (ICD-10-PCS; 2019-09-19)
PROC: 5A09457 Assistance with Respiratory Ventilation, 24-96 Consecutive Hours, Continuous Positive Airway Pressure (ICD-10-PCS; principal; 2019-09-20)
PROC: 05H633Z Insertion of Infusion Device into Left Subclavian Vein, Percutaneous Approach (ICD-10-PCS; 2019-09-20)
PROC: 0W993ZZ Drainage of Right Pleural Cavity, Percutaneous Approach (ICD-10-PCS; 2019-09-26)
PROC: 05H633Z Insertion of Infusion Device into Left Subclavian Vein, Percutaneous Approach (ICD-10-PCS; 2019-09-27)
PROC: B547ZZA Ultrasonography of Left Subclavian Vein, Guidance (ICD-10-PCS; 2019-09-27)
PROC: 30233N1 Transfusion of Nonautologous Red Blood Cells into Peripheral Vein, Percutaneous Approach (ICD-10-PCS; 2019-09-29)
DX: J15.9 Unspecified bacterial pneumonia (principal); I21.A1 Myocardial infarction type 2; G93.41 Metabolic encephalopathy; J96.01 Acute respiratory failure with hypoxia; J96.02 Acute respiratory failure with hypercapnia; N18.6 End stage renal disease; I50.33 Acute on chronic diastolic (congestive) heart failure; I13.2 Hypertensive heart and chronic kidney disease with heart failure and with stage 5 chronic kidney disease, or end stage renal disease; I48.20 Chronic atrial fibrillation, unspecified; E66.2 Morbid (severe) obesity with alveolar hypoventilation; J90 Pleural effusion, not elsewhere classified; K92.2 Gastrointestinal hemorrhage, unspecified; E11.22 Type 2 diabetes mellitus with diabetic chronic kidney disease; E78.5 Hyperlipidemia, unspecified; E11.65 Type 2 diabetes mellitus with hyperglycemia; Z79.01 Long term (current) use of anticoagulants; Z86.711 Personal history of pulmonary embolism; Z86.73 Personal history of transient ischemic attack (TIA), and cerebral infarction without residual deficits; Z99.2 Dependence on renal dialysis; Z87.01 Personal history of pneumonia (recurrent); Z86.19 Personal history of other infectious and parasitic diseases; Z91.19 Patient's noncompliance with other medical treatment and regimen; E87.5 Hyperkalemia; E83.52 Hypercalcemia; D64.9 Anemia, unspecified; I25.10 Atherosclerotic heart disease of native coronary artery without angina pectoris; F43.22 Adjustment disorder with anxiety; F01.50 Vascular dementia, unspecified severity, without behavioral disturbance, psychotic disturbance, mood disturbance, and anxiety; I05.0 Rheumatic mitral stenosis; T38.0X5A Adverse effect of glucocorticoids and synthetic analogues, initial encounter; Z68.30 Body mass index [BMI] 30.0-30.9, adult; I95.3 Hypotension of hemodialysis
CPT/HCPCS: 36415; 36600; 70450-TC; 71045-TC; 76942-TC; 80048-TC; 80053-TC; 80061-TC; 80076-TC; 80202-TC; 81000-TC; 82248-TC; 82272-TC; 82533; 82803-TC; 82962-TC; 83605-TC; 83735-TC; 83880; 83970; 84100-TC; 84155; 84165; 84439-TC; 84443-TC; 84481; 84484-TC; 85025-TC; 85027-TC; 85730-TC; 86706; 86850-TC; 86921-TC; 87040-TC; 87081-TC; 87086-TC; 87340; 88112-TC; 88305-TC; 88312-TC; 90935-TC; 93307-TC; 94760-TC; 94762-TC; 94799-TC; 97530-TC; 99082-TC; A4216; A6253; C1751; C9113; G0378; J0360; J0456; J0692; J0696; J1644; J1720; J1815; J1940; J1956; J2060; J2185; J2370; J2405; J2930; J2997; J3370; J3490; J7030; J7040; J7050; J7060; P9016-BL; P9047